=== PATIENT | female | born 1955 | race Caucasian/White ===

== ENCOUNTER 2019-03-22 01:46 | Emergency (ER) | payer MEDICARE, OTHER ==
[~2019-03-22] VITALS: Ht 152.4 cm; Wt 70.3 kg
--- OUTSIDE RECORDS SUMMARY | 2019-03-22 01:48 | XMS REPORT | Clinical Summary ---
Author Author [facility] Address Unknown Phone Unavailable Care Team Providers Care Solar Panel Technician Name Role Phone PCP Unavailable Allergies Not on File Medications Not on file Active Problems Not on file Encounters Care Team Description Date Type Specialty Thor Gibson MD 05/25/2018 Lab Lab after 03/21/2018 Social History Date Tobacco Use Types Packs/Day Years Used Never Assessed Sex Assigned at Date Recorded Not on file Industry Job Start Date Occupation Not on file Not on file Not on file Travel End Travel History Travel Start No recent travel history available. Last Filed Vital Signs Not on file Plan of Treatment Health Maintenance Due Date Last Done Comments BREAST CANCER SCREENING 2007 COLONOSCOPY SCREENING 2007 SHINGLES VACCINES (#1) 2007 INFLUENZA VACCINE 05/12/2019 11/10/2005 Procedures Comments Procedure Name Priority Date/Time Associated Diagnosis SURGICAL PATHOLOGY Routine 05/25/2018 REQUEST 3:25 PM CDT after 03/21/2018 Results * Surgical pathology request (05/25/2018 3:25 PM CDT) [facility] DEPARTMENT OF PATHOLOGY AND GENOMIC MEDICINE Surgical See link below for PDF Lab [facility] DEPARTMENT pathology Report OF PATHOLOGY report AND GENOMIC MEDICINE Result status This is Final Report to [facility] DEPARTMENT [id number] OF PATHOLOGY AND GENOMIC MEDICINE Specimen Performing Organization Address City/State/Zipcode Phone Number [facility] DEPARTMENT OF [address] [place] [address] PATHOLOGY AND GENOMIC MEDICINE after 03/21/2018 Insurance Type Payer Benefit Subscriber ID Effective Phone Address Plan / Dates Group Medicare MEDICARE MEDICARE xxxxxxxxxx 2006-P [place], PART A AND resent [place] PPO BCBS BCBS xxxxxxxxxxxx 2017- CHOICE Present PPO/[employer] PPO Advance Directives Patient has advance care planning documents on file. For more information, genna kim contact: Patricio Dutta [address] [place] [address]
--- OUTSIDE RECORDS SUMMARY | 2019-03-22 01:52 | XMS REPORT | Summary of Care ---
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) - Unspecified asthma, uncomplicated (Final) - Crohn's disease, unspecified, without complications (Final) - Essential (primary) hypertension (Final) - Pure hypercholesterolemia, unspecified (Final) - Unspecified osteoarthritis, unspecified site (Final) - Major depressive disorder, single episode, unspecified (Final) - lobsterman (current) use of insulin (Final) - Family history of diabetes mellitus (Final) - Personal history of transient ischemic attack (TIA), and cerebral infarction wit hout residual deficits (Final) - Discharge Disposition: Home or Self Care Attending Physician: Belle Villatoro DPM Referring Physician: Belle Villatoro DPM Vital Signs No data available for this section Problem List Condition Effective Dates Status Health Status Informant Abrasion and/or 04/26/14 Active friction burn of foot without infection1, 2 Allergic rhinitis3, 04/26/14 Active 4 Appendectomy(Confirm Active ed) Asthma5, 6 04/26/14 Active Asthma(Confirmed) Active Bloody 05/05/11 Active stool(Confirmed) Colitis(Confirmed) 05/18/11 Active Depressed(Confirmed) Active Diabetes(Confirmed) Resolved Diabetes(Confirmed) Active Diabetic Active nephropathy(Confirme d) Diarrhea(Confirmed) Active H/O: TIA(Confirmed) Active Hypercholesteremia(C Active onfirmed) Hypothyroidism(Confi Active rmed) Hysterectomy(Confirm Active ed) Mitral valve Active prolapse(Confirmed) Nausea(Confirmed) Active Pinched Resolved nerve(Confirmed)7 Sepsis(Confirmed) Active Shortness of < 711 Resolved breath(Confirmed) Tachycardia(Confirme Active d) TIA(Confirmed) Resolved Type 1 diabetes 04/26/14 Active mellitus8, 9 Ulcerative Active colitis(Confirmed) 1Data migrated from [employer] on 03/13/15. 2Data migrated from [employer] on 03/13/15. 3Data migrated from [employer] on 03/13/15. 4Data migrated from [employer] on 03/13/15. 5Data migrated from [employer] on 03/13/15. 6Data migrated from [employer] on 03/13/15. 7l4/l5 8Data migrated from [employer] on 03/13/15. 9Data migrated from [employer] on 03/13/15. Allergies, Adverse Reactions, Alerts Substance Reaction Severity Status amoxicillin1 Active sulfamethoxazole-trimetho Active prim2 Remicade Active Bactrim Active inFLIXimab3 Active 1Data migrated from [employer] on 02/08/15. Originally documented as AMOXICILLIN. 2Data migrated from [employer] on 02/08/15. Originally documented as BACTRIM. 3Data migrated from [employer] on 02/08/15. Originally documented as REMICAID. Medications No data available for this section Results No data available for this section Immunizations Not Given Vaccine Date Status Refusal Reason influenza virus vaccine, inactivated1 07/30/14 Not Given Patient Refuses 1Result Note: patient received some live virus vaccine- humara. Dr. Galvan notify about that. order received on to D/C. LET primary care Dr. Miller Take care. Procedures Procedure Date Related Diagnosis Body Site Status Cataract surgery 2009 Completed Cataract surgery 2008 Completed Hernia repair 2007 Completed Tympanoplasty 2006 Completed Appendectomy 2000 Completed ELIEZER - Manipulation of joint under anesthetic 1996 Completed Mastoidectomy 1992 Completed Carpal tunnel release 1982 Completed Carpal tunnel release 1981 Completed section 1979 Completed section 1978 Completed Tonsillectomy and adenoidectomy 1963 Completed Abdominal hysterectomy and left Completed salpingo-oophorectomy Appendectomy Completed Cholecystotomy and removal of foreign body Completed from gallbladder Hysterectomy Completed Mastoidectomy Completed Oophorectomy Completed Social History Social History Type Response Substance Abuse Use: None. Alcohol Never Smoking Status Never smoker; Previous treatment: None; Exposure to Tobacco Smoke None; Cigarette Smoking Last 365 Days Yes; Reg Smoking Cessation Counseling No1 entered on: 05/06/18 1no change Assessment and Plan No data available for this section
--- OUTSIDE RECORDS SUMMARY | 2019-03-22 01:52 | XMS REPORT | Summary of Care ---
Author Author [facility] [place] Organization [facility] [place] Address Unknown Phone Unavailable Encounter ROSE MARY Duque(FIN) [id number] Date(s): 10/02/17 - 10/02/17 [facility] [place] [address] [place] [phone] Discharge Disposition: Home or Self Care Attending Physician: Reema Woods MD Vital Signs No data available for this section Problem List Condition Effective Dates Status Health Status Informant Abrasion and/or 04/26/14 Active friction burn of foot without infection1, 2 Allergic rhinitis3, 04/26/14 Active 4 Appendectomy(Confirm Active ed) Asthma5, 6 04/26/14 Active Asthma(Confirmed) Active Bloody 05/05/11 Active stool(Confirmed) Colitis(Confirmed) 05/18/11 Active Depressed(Confirmed) Active Depression(Confirmed Active ) Diabetes(Confirmed) Resolved Diabetes(Confirmed) Active Diabetic Active nephropathy(Confirme d) Diarrhea(Confirmed) Active H/O: TIA(Confirmed) Active Hypercholesteremia(C Active onfirmed) Hypothyroidism(Confi Active rmed) Hysterectomy(Confirm Active ed) Mitral valve Active prolapse(Confirmed) Nausea(Confirmed) Active Pinched Resolved nerve(Confirmed)7 Sepsis(Confirmed) Active Shortness of < 04/15/11 Resolved breath(Confirmed) Tachycardia(Confirme Active d) TIA(Confirmed) Resolved [...] Date Status Refusal Reason influenza virus vaccine, inactivated 07/30/14 Not Given Patient Refuses Procedures Procedure Date Related Diagnosis Body Site Cataract surgery 2009 Cataract surgery 2008 Hernia repair 2006 Tympanoplasty 2005 Appendectomy 1999 ELIEZER - Manipulation of joint under anesthetic 1996 Mastoidectomy 1992 Carpal tunnel release 1982 Carpal tunnel release 1982 section 1980 section 1978 Tonsillectomy and adenoidectomy 1963 Abdominal hysterectomy and left salpingo-oophorectomy Appendectomy Cholecystotomy and removal of foreign body from gallbladder Mastoidectomy Oophorectomy Social History Social History Type Response Substance Abuse Use: None. Alcohol Never Smoking Status Never smoker; Exposure to Tobacco Smoke None; Cigarette Smoking Last 365 Days Yes; Reg Smoking Cessation Counseling No1 1no change Assessment and Plan No data available for this section
--- OUTSIDE RECORDS SUMMARY | 2019-03-22 01:52 | XMS REPORT | Summary of Care ---
Author Author [facility] [place] Organization [facility] [place] Address Unknown Phone Unavailable Encounter ROSE MARY Duque([place]) [id number] Date(s): 10/01/17 - 10/01/17 [facility] [place] [address] [place] [phone] Discharge Disposition: Home or Self Care Attending Physician: Cristiano Ahn MD Vital Signs No data available for [...]
--- OUTSIDE RECORDS SUMMARY | 2019-03-22 01:52 | XMS REPORT | Summary of Care ---
Author Author [facility] Organization [facility] Address Unknown Phone Unavailable Care Team Providers Care Knife Setter Grinder Machine Name Role Phone Vincent Graff PCP Encounter [facility]) [phone] Date(s): 08/26/18 - 08/26/18 [facility] [address] [place] [address]- [phone] Encounter Diagnosis Dysphagia, oropharyngeal phase (Final) - 08/31/18 Other forms of dyspnea (Final) - Discharge Disposition: Home or Self Care Attending Physician: Carlos Villagran MD Referring Physician: Carlos Villagran MD Vital Signs Most recent to 1 oldest [Reference Range]: Height 152.4 cm (08/26/18 9:27 AM) Weight 68.636 kg (08/26/18 9:27 AM) Body Mass Index 29.55 m2 (08/26/18 9:27 AM) Problem List Condition Effective Dates Status Health [...] Completed Cataract surgery 2008 Completed Hernia repair 2006 Completed Tympanoplasty 2005 Completed Appendectomy 1999 Completed ELIEZER - Manipulation of joint under anesthetic 1996 Completed Mastoidectomy 1992 Completed Carpal tunnel release 1982 Completed Carpal tunnel release 1981 Completed section 1979 Completed section 1977 Completed Tonsillectomy and adenoidectomy 1963 Completed Abdominal [...]
--- OUTSIDE RECORDS SUMMARY | 2019-03-22 01:52 | XMS REPORT | Continuity of Care Document ---
Author Author [facility] Interface Address Unknown Phone Unavailable Problems Problem Status Onset Date Classification Date Reported Comments Source FOLLOW UP Active 01/17/2019 [facility] CPAP 12277 Active 12/09/2018 [facility] HST - G0399 Active 10/14/2018 [facility] Dysphagia, oropharyngeal phase 09/01/2018 03/16/2019 [facility] R13.12 Active 08/19/2018 [facility] Unspecified asthma, uncomplicated 08/13/2018 02/23/2019 [facility] Corns and callosities 08/04/2018 02/15/2019 [facility] DX: J45.909=UNSPECIFIED ASTHMA, UNCOMPLI Active 08/02/2018 [facility] DX: R06.09=OTHER FORMS OF DYSPNEA Active 07/27/2018 [facility] R07.89 Active 04/26/2018 [facility] WOUNDS Active 04/21/2018 [facility] FOLLOW-UP Active 03/31/2018 [facility] LEFT FOOT CALLUS Active 02/16/2018 [facility] LUMBAR Active 11/05/2016 [facility] [place] E89.0 Active 07/17/2016 [facility] Z12.31 - ENCNTR SCREEN MAMMOGRAM FOR MA Active 07/04/2016 [facility] Velascoadena LAB Active 04/19/2016 [facility] M17.9 Active 11/30/2015 [facility] UNK Active 10/15/2015 [facility] BDDC/ BARRETTS 530.85/. VC556.9 Active 02/21/2015 [facility] BUBBLE STUDY DX:434.11=ACUTE CARDIOEMBO Active 08/11/2014 [facility] 434.91 - CRBL ART OCL NO Active 08/08/2014 [facility] Velascoadena STROKE SYMPTOMS Active 07/28/2014 [facility] VISION CHANGES, ATAXIA Active 07/28/2014 [facility] DIZZINESS, WEAKNESS Active 07/17/2014 [facility] 250.93 Active 06/06/2014 [facility] Abrasion and/or friction burn of foot without infection<sup>1, 2</sup> Active 04/26/2014 Problem 03/16/2019 Data migrated from [employer] on 03/13/15. [facility] Allergic rhinitis<sup>3, 4</sup> Active 04/26/2014 Problem 03/16/2019 Data migrated from [employer] on 03/13/15. [facility] Asthma<sup>5, 6</sup> Active 04/26/2014 Problem 03/16/2019 Data migrated from [employer] on 03/13/15. [facility] Type 1 diabetes mellitus<sup>8, 9</sup> Active 04/26/2014 Problem 03/16/2019 Data migrated from [employer] on 03/13/15. [facility] [place] Abrasion and/or friction burn of foot without infection<sup>1, 2</sup> Active 04/26/2014 Problem 03/07/2018 Data migrated from [employer] on 03/13/15. [facility] [place] Allergic rhinitis<sup>3, 4</sup> Active 04/26/2014 Problem 03/07/2018 Data migrated from [employer] on 03/13/15. [facility] [place] Asthma<sup>5, 6</sup> Active 04/26/2014 Problem 03/07/2018 Data migrated from [employer] on 03/13/15. [facility] [place] Type 1 diabetes mellitus<sup>8, 9</sup> Active 04/26/2014 Problem 03/07/2018 Data migrated from [employer] on 03/13/15. [facility] [place] Abrasion and/or friction burn of foot without infection<sup>1, 2</sup> Active 04/26/2014 Problem 02/18/2019 Data migrated from [employer] on 03/13/15. [facility] All[facility] rhinitis<sup>3, 4</sup> Active 04/26/2014 Problem 02/18/2019 Data migrated from [employer] on 03/13/15. [facility] Asthma<sup>5, 6</sup> Active 04/26/2014 Problem 02/18/2019 Data migrated from [employer] on 03/13/15. [facility] Type 1 diabetes mellitus<sup>8, 9</sup> Active 04/26/2014 Problem 02/18/2019 Data migrated from [employer] on 03/13/15. [facility] Abrasion and/or friction burn of foot without infection<sup>1, 2</sup> Active 04/26/2014 Problem 03/23/2018 Data migrated from [employer] on 03/13/15. [facility] Allergic rhinitis<sup>3, 4</sup> Active 04/26/2014 Problem 03/23/2018 Data migrated from [employer] on 03/13/15. [facility] Asthma<sup>5, 6</sup> Active 04/26/2014 Problem 03/23/2018 Data migrated from [employer] on 03/13/15. [facility] Type 1 diabetes mellitus<sup>8, 9</sup> Active 04/26/2014 Problem 03/23/2018 Data migrated from [employer] on 03/13/15. [facility] ASTHMA Active 04/26/2014 Condition 04/28/2014 [facility] ALLERGIC RHINITIS Active 04/26/2014 Condition 04/28/2014 [facility] DIABETES - TYPE I Active 04/26/2014 Condition 04/28/2014 [facility] ABRASION, FOOT/TOE W/O INFECTION Active 04/26/2014 Condition 04/28/2014 [facility] 724.4 - LUMBOSACRAL CHARLA Active 04/19/2014 [facility] [place] F/U VISIT Active 03/16/2012 [facility] RIGHT FOR ARM FRACTURE, RIGHT WRIST STRAIN Active 02/26/2012 [facility] DDC-F/U Active 02/03/2012 [facility] DDC- FOLLOW UP Active 01/06/2012 [facility] RIGHT FOREARM FX Active 11/25/2011 [facility] ARM INJURY Active 11/25/2011 [facility] FU Active 09/30/2011 [facility] FU. Active 09/30/2011 [facility] 840.4 - SPRAIN ROTATOR Active 09/11/2011 [facility] [place] 6 WEEK FOLLOW UP Active 07/15/2011 [facility] INPATIENT FOLLOW UP Active 06/30/2011 [facility] Colitis Active 05/18/2011 Problem 06/13/2012 [facility], [facility] [place] Colitis Active 05/18/2011 Problem 07/01/2012 [facility] Colitis Active 05/18/2011 Problem 03/05/2012 [facility], [place] Colitis Active 05/18/2011 Problem 03/16/2019 [facility] [place], [place] Colitis Active 05/18/2011 Problem 02/18/2019 [facility] [place], [facility] [place],[facility] Colitis Active 05/18/2011 Problem 03/23/2018 [facility] [place], [facility] [place] BRAIN TUMOR Active 05/12/2011 [facility] Bloody stool Active 05/05/2011 Problem 04/01/2012 [facility], [facility] [place] Bloody stool Active 05/05/2011 Problem 03/18/2012 [facility] Bloody stool Active 05/05/2011 Problem 03/05/2012 [facility], [place] Bloody stool Active 05/05/2011 Problem 07/01/2012 [facility] [place],[facility] Bloody stool Active 05/05/2011 Problem 03/16/2019 [facility] [place], [place] Bloody stool Active 05/05/2011 Problem 02/18/2019 [facility] [place], [facility] [place],[facility] Bloody stool Active 05/05/2011 Problem 03/23/2018 [facility] [place], [facility] [place] DOUBLE VISION, DIZZINESS, NAUSEA Active 04/29/2011 [facility] [place] Shortness of breath Resolved 04/15/2011 Problem 03/16/2019 [facility] [place], [place] Shortness of breath Resolved 04/15/2011 Problem 02/18/2019 [facility] [place], [facility] [place],[facility] Shortness of breath Resolved 04/15/2011 Problem 03/23/2018 [facility] [place], [facility] [place] DIARRHEA, SEPTIC SHOCK Active 04/15/2011 [facility] TBI Active 10/12/2000 [facility] Depressed Active Problem 04/01/2012 [facility] [place] Diabetic nephropathy Active Problem 06/13/2012 [facility], [facility] [place] Diarrhea Active Problem 06/13/2012 [facility] [place] Nausea Active Problem 06/13/2012 [facility] [place] Sepsis Active Problem 06/13/2012 [facility] [place] Shortness of breath Resolved Problem 06/13/2012 [facility] [place] Depressed Active Problem 03/18/2012 [facility] Diabetic nephropathy Active Problem 07/01/2012 [facility] Diarrhea Active Problem 07/01/2012 [facility] Nausea Active Problem 07/01/2012 [facility] Sepsis Active Problem 07/01/2012 [facility] Shortness of breath Resolved Problem 07/01/2012 [facility] Appendectomy Active Problem 07/01/2012 [facility] [place],[facility] Hysterectomy Active Problem 07/01/2012 [facility] [place],[facility] Depressed Active Problem 03/05/2012 [facility], [place] Diabetic nephropathy Active Problem 03/05/2012 [facility] [place] Diarrhea Active Problem 03/05/2012 [facility] [place] Nausea Active Problem 03/05/2012 [facility] [place] Sepsis Active Problem 03/05/2012 [facility] [place] Shortness of breath Resolved Problem 03/05/2012 [facility], [place] Depressed Active Problem 07/01/2012 [facility] [place],[facility] Appendectomy Active Problem 03/16/2019 [facility] [place], [place] Depressed Active Problem 03/16/2019 [facility] [place], [place] Diabetes Resolved Problem 03/16/2019 [place],[facility], [facility] [place], [facility] [place] Diabetic nephropathy Active Problem 03/16/2019 [facility] [place], [place] Diarrhea Active Problem 03/16/2019 [facility] [place], [place] Hysterectomy Active Problem 03/16/2019 [facility] [place], [place] Nausea Active Problem 03/16/2019 [facility] [place], [place] Sepsis Active Problem 03/16/2019 [facility] [place], [place] TIA Resolved Problem 03/16/2019 [place],[facility], [facility] [place], [facility] [place] Appendectomy Active Problem 02/18/2019 [facility] [place], [facility] [place],[facility] Depressed Active Problem 02/18/2019 [facility] [place], [facility] [place],[facility] Diabetic nephropathy Active Problem 02/18/2019 [facility] [place], [facility] [place],[facility] Diarrhea Active Problem 02/18/2019 [facility] [place], [facility] [place],[facility] Hysterectomy Active Problem 02/18/2019 [facility] [place], [facility] [place],[facility] Nausea Active Problem 02/18/2019 [facility] [place],[facility] [place],[facility] Pinched nerve<sup>1</sup> Resolved Problem 03/01/2015 1l4/l5 [place],[facility] Sepsis Active Problem 02/18/2019 [facility] [place], [facility] [place],[facility] Asthma Active Problem 03/16/2019 [facility] [place], [place] H/O: TIA Active Problem 03/16/2019 [facility] [place], [place] Hypercholesteremia Active Problem 03/16/2019 [facility] [place], [place] Hypothyroidism Active Problem 03/16/2019 [facility] [place],[facility] Mitral valve prolapse Active Problem 03/16/2019 [facility] [place],[facility] Pinched nerve<sup>7</sup> Resolved Problem 03/16/2019 l4/l5 [facility] [place], [place] Tachycardia Active Problem 03/16/2019 [facility] [place], [place] Ulcerative colitis Active Problem 03/16/2019 [facility] [place], [place] Asthma Active Problem 03/07/2018 [facility] [place], [facility] [place] Depression Active Problem 10/05/2017 [facility] [place], [place], [facility] [place] H/O: TIA Active Problem 03/07/2018 [facility] [place], [facility] [place] Hypercholesteremia Active Problem 03/07/2018 [facility] [place], [facility] [place] Hypothyroidism Active Problem 03/07/2018 [facility] [place], [facility] [place] Mitral valve prolapse Active Problem 03/07/2018 [facility] [place], [facility] [place] Pinched nerve<sup>7</sup> Resolved Problem 03/07/2018 l4/l5 [facility] [place], [facility] [place] Tachycardia Active Problem 03/07/2018 [facility] [place], [facility] [place] Ulcerative colitis Active Problem 03/07/2018 [facility] [place], [facility] [place] Final: Muscle weakness 02/07/2017 [facility] [place] Final: Stiffness of unspecified joint, not elsewhere classified 02/07/2017 [facility] [place] Final: Difficulty in walking, not elsewhere classified 02/07/2017 [facility] [place] Diabetes mellitus due to underlying condition with diabetic nephropathy 11/23/2018 [facility] Other specified soft tissue disorders 11/23/2018 [facility] Crohn's disease, unspecified, without complications 02/15/2019 [facility] custodial use of insulin 02/15/2019 [facility] Thyrotoxicosis with diffuse goiter without thyrotoxic crisis or storm 02/15/2019 [facility] Essential hypertension 02/15/2019 [facility] Personal history of transient ischemic attack , and cerebral infarction without residual deficits 02/15/2019 [facility] Asthma Active Problem 02/18/2019 [facility] H/O: TIA Active Problem 02/18/2019 [facility] Hypercholesteremia Active Problem 02/18/2019 [facility] [place],[facility] Hypothyroidism Active Problem 02/18/2019 [facility] [place],[facility] Mitral valve prolapse Active Problem 02/18/2019 [facility] [place],[facility] Pinched nerve<sup>7</sup> Resolved Problem 02/18/2019 l4/l5 [facility] [place],[facility] Tachycardia Active Problem 02/18/2019 [facility] [place],[facility] Ulcerative colitis Active Problem 02/18/2019 [facility] [place],[facility] Appendectomy Active Problem 03/23/2018 [facility] [place], [facility] [place] Asthma Active Problem 03/23/2018 [facility] [place] Depressed Active Problem 03/23/2018 [facility] [place],[facility] [place] Diabetic nephropathy Active Problem 03/23/2018 [facility] [place],[facility] [place] Diarrhea Active Problem 03/23/2018 [facility] [place],[facility] [place] H/O: TIA Active Problem 03/23/2018 [facility] [place] Hypercholesteremia Active Problem 03/23/2018 [facility] [place] Hypothyroidism Active Problem 03/23/2018 [facility] [place] Hysterectomy Active Problem 03/23/2018 [facility] [place],[facility] [place] Mitral valve prolapse Active Problem 03/23/2018 [facility] [place] Nausea Active Problem 03/23/2018 [facility] [place],[facility] [place] Pinched nerve<sup>7</sup> Resolved Problem 03/23/2018 l4/l5 [facility] [place] Sepsis Active Problem 03/23/2018 [facility] [place],[facility] [place] Tachycardia Active Problem 03/23/2018 [facility] [place] Ulcerative colitis Active Problem 03/23/2018 [facility] [place] Type 1 diabetes mellitus with unspecified complications 11/23/2018 [facility] Type 1 diabetes mellitus with hyperglycemia 11/23/2018 [facility] Hypertensive heart disease without heart failure 11/23/2018 [facility] Pure hypercholesterolemia, unspecified 02/15/2019 [facility] Family history of ischemic heart disease and other diseases of the circulatory system 11/23/2018 [facility] Other forms of dyspnea 03/16/2019 [place] Pain in left foot 02/15/2019 [facility] Pain in right foot 02/15/2019 [facility] Type 1 diabetes mellitus with diabetic neuropathy, unspecified 02/15/2019 [facility] Unspecified osteoarthritis, unspecified site 02/15/2019 [facility] Major depressive disorder, single episode, unspecified 02/15/2019 [facility] Family history of diabetes mellitus 02/15/2019 [facility] Other chest pain 02/23/2019 [facility], [place] Cough 02/23/2019 [facility] Diaphragmatic hernia without obstruction or gangrene 02/23/2019 [facility] [place] RT ELBOW/SHOULDER Active [facility] [place] FX FOREARM NOS-CLOSED Active [facility] RT HAND Active [facility] [place] SEPTIC SHOCK Active [facility] ROUTINE MEDICAL EXAM Active [facility] 342.01, 250.60, 357.2, 294.0 Active [facility] FOLLOW-UP EXAM NOS Active [facility] BRAIN INJURY NEC Active [facility] ATAXIA Active [facility] RIGHT KNEE, PRE-OP Active [facility] [place] RT KNEE, SX 10/31/15 Active [facility] [place] RT KNEE OA TKR 10/29/15 Active [facility] [place] OSTEOARTHRITIS OF KNEE, UNSPECIFIED Active [facility] RT ANKLE SX 10/31/15 Active [facility] [place] OTHER INTERVERTEBRAL DISC DEGENERATION, Active [facility] [place] MUSCLE WEAKNESS (GENERALIZED) Active [facility] [place] LOW BACK PAIN Active [facility] [place] STIFFNESS OF UNSPECIFIED JOINT, NOT ELSE Active [facility] [place] DIFFICULTY IN WALKING, NOT ELSEWHERE CLA Active [facility] [place] OTHER CHEST PAIN Active [facility] UNSPECIFIED ASTHMA, UNCOMPLICATED Active [facility] Medications Medication Details Route Status Patient Instructions Ordering Provider Order Date Source DOBUTamine 50 mg + Dextrose 5% in Water IV 46 mL 46 mL, Rate: infuse as directed, Route: IV, Dosing Weight 68.636 kg, Total Volume: 50, Start date: 05/06/18 9:25:00 CDT, Duration: 1 day, Stop date: 05/07/18 9:24:00 CDT, 1.73, [id number]: (Same as: Dobutrex) Not for direct administration- DILUTE. No Longer Active 05/06/2018 [facility] valACYclovir 500 mg oral tablet 500 mg=1 tab, PO, Daily Active 05/06/2018 [facility] Mupirocin 0.02 MG/MG Topical Ointment [Bactroban] 1 appl, TOP, TID, PRN as needed, Apply to affected area(s), X 14 day, # 22 gm, 1 Refill(s), Pharmacy: [facility] [id number] Active 03/20/2018 [facility] Humira 40 mg, SUB-Q, ONCE, 0 Refill(s) Active 03/20/2018 [facility] Lamictal PO, BID, 0 Refill(s) Active 03/20/2018 [facility] Thyroxine Daily, 0 Refill(s) Active 03/20/2018 [facility] Lidocaine IV, ONCE, 0 Refill(s) Active 03/20/2018 [facility] Wellbutrin PO, 0 Refill(s) Active 03/20/2018 [facility] Losartan PO, Daily, 0 Refill(s) Active 03/20/2018 [facility] Lipitor PO, Daily, 0 Refill(s) Active 03/20/2018 [facility] Advair Diskus 500 mcg-50 mcg inhalation powder 1 puff, INHALATION, BID, 0 Refill(s) Active 03/20/2018 [facility] Aciphex 20 mg, PO, Daily, 0 Refill(s) Active 03/20/2018 [facility] Acetaminophen 325 MG / Hydrocodone Bitartrate 7.5 MG Oral Tablet [[place] 7.5/325] See Instructions, PRN Pain Score 7-10, 1 tab PO Q6-8H as needed, # 50 tab, 0 Refill(s), given to patient Active 12/19/2015 [facility] rivaroxaban 10 mg oral tablet 10 mg=1 tab, PO, Daily, # 10 tab, 0 Refill(s) Active 12/19/2015 [facility] Lamictal 150 mg, 1.5 tab, Route: PO, Drug form: TAB, Daily, Dosing Weight 71.449, kg, Start date: 12/18/15 9:00:00, Duration: 30 day, Stop date: 01/16/16 9:00:00Notes: (Same as:LaMICtal) No Longer Active 12/18/2015 [facility] Folic Acid 0.4 mg, 1 tab, Route: PO, Drug form: TAB, Daily, Dosing Weight 71.449, kg, Start date: 12/18/15 9:00:00, Duration: 30 day, Stop date: 01/16/16 9:00:00 No Longer Active 12/18/2015 [facility] Thiamine 100 mg, 1 tab, Route: PO, Drug form: TAB, Daily, Dosing Weight 71.449, kg, Start date: 12/18/15 9:00:00, Duration: 30 day, Stop date: 01/16/16 9:00:00Notes: (Same As: Vitamin B1) No Longer Active 12/18/2015 [facility] Bupropion 300 mg, 2 tab, Route: PO, Drug form: ERTAB, Daily, Dosing Weight 71.449, kg, Start date: 12/18/15 9:00:00, Duration: 30 day, Stop date: 01/16/16 9:00:00Notes: (Same as: Wellbutrin XL) "Do Not Crush" No Longer Active 12/18/2015 [facility] Lidocaine Hydrochloride 0.05 MG/MG Transdermal Patch 1 patch, Route: TOP, Daily, Drug form: FILM, Start date: 12/18/15 9:00:00, Duration: 30 day, Stop date: 01/16/16 9:00:00Notes: Apply only once for up to 12 hours in a 24-hour period (12 hours on and 12 hours off). (Same as: Lidoderm) "Remove old patch before application of new patch" No Longer Active 12/18/2015 [facility] Xarelto 10 mg, 1 tab, Route: PO, Drug form: TAB, Daily, Dosing Weight 71.449, kg, Start date: 12/18/15 8:00:00, Duration: 30 day, Stop date: 01/16/16 8:00:00Notes: (Same as: Xarelto) Do Not Crush No Longer Active 12/18/2015 [facility] Synthroid 150 microgram, 1 tab, Route: PO, Drug form: TAB, Q630AM, Dosing Weight 71.449, kg, Start date: 12/18/15 6:30:00, Duration: 30 day, Stop date: 01/16/16 6:30:00Notes: Take 1 hour before or 2 hours after meal; Enteral feeds may interefere with the absorption of this medication. (Same as: Levothroid) No Longer Active 12/18/2015 [facility] Levemir 15 unit, 0.15 mL, Route: SUB-Q, Drug form: INJ, Q12H, Dosing Weight 71.449, kg, Start date: 12/17/15 21:00:00, Duration: 30 day, Stop date: 01/16/16 9:00:00Notes: Same as Levemir Do not hold insulin wit hout contacting prescriber WASTE: F/P - Black; E - [employer] "single patient use only" No Longer Active 12/18/2015 [facility] remove patch 1 patch, Route: TOP, Bedtime, Drug form: ERFILM, Start date: 12/17/15 21:00:00, Duration: 30 day, Stop date: 01/15/16 21:00:00Notes: Remove patch 12 hours after application each day. No Longer Active 12/18/2015 [facility] Vancomycin 6.67 MG/ML Injectable Solution 1 gm, Route: IVPB, Q12H, Dosing Weight 71.449, kg, Time Critical Medication, Start date: 12/17/15 20:00:00, Duration: 1 doses or times, Stop date: 12/17/15 20:00:00, Pharmacy to adjust dose for renal functionNotes: TIME CRITICAL MEDICATION (Same As: Vancocin) Infusion rate 2001 mg: infuse over 2.5 hours MEDICATION WASTE Product Size: 1000 mg Product Wasted: ___ mg Inactive 12/18/2015 [facility] Advair Diskus 250 mcg-50 mcg inhalation powder 1 puff, Route: INHALATION, Drug Form: AERO, Dosing Weight 71.449, kg, BID, Start date: 12/17/15 17:00:00, Duration: 30 day, Stop date: 01/16/16 9:00:00 Inactive 12/17/2015 [facility] docusate sodium 100 mg oral capsule 100 mg, 1 cap, Route: PO, Drug form: CAP, BID, Dosing Weight 71.449, kg, Start date: 12/17/15 17:00:00, Duration: 30 day, Stop date: 01/16/16 9:00:00Notes: (Same as: Colace) (Do Not Crush) No Longer Active 12/17/2015 [facility] Aciphex 20 mg, Route: PO, Drug form: ECTAB, BID, Dosing Weight 71.449, kg, Start date: 12/17/15 17:00:00, Duration: 30 day, Stop date: 01/16/16 9:00:00 Inactive 12/17/2015 [facility] budesonide-formoterol 160 mcg-4.5 mcg/inh inhalation aerosol with adapter 2 inhalation, Route: INHALATION, Drug Form: AERO/A, BID, Start date: 12/17/15 17:00:00, Duration: 30 day, Stop date: 01/16/16 9:00:00Notes: (Same as: Symbicort) WASTE: Aerosol - Return to Pharmacy No Longer Active 12/17/2015 [facility] Asacol HD 800 mg, 1 tab, Route: PO, Drug form: ECTAB, TID, Dosing Weight 71.449, kg, Start date: 12/17/15 17:00:00, Duration: 30 day, Stop date: 01/16/16 13:00:00Notes: (Same as: Asacol HD) (Do not crush) No Longer Active 12/17/2015 [facility] Lipitor 40 mg, 1 tab, Route: PO, Drug form: TAB, QPM, Dosing Weight 71.449, kg, Start date: 12/17/15 17:00:00, Duration: 30 day, Stop date: 01/15/16 17:00:00Notes: (Same as: Lipitor) No Longer Active 12/17/2015 [facility] Protonix 40 mg, 1 tab, Route: PO, Drug form: ECTAB, Before Dinner, Start date: 12/17/15 16:30:00, Duration: 30 day, Stop date: 01/15/16 16:30:00Notes: Tablet should not be chewed or crushed. (Same as: Protonix) No Longer Active 12/17/2015 [facility] Reminder to bring pt's own med Asacol HD to pharmacy Reminder to bring pt's own med Asacol HD to pharmacy, 1, Drug form: MISC, Route: MISC, QSHIFT, 12/17/15 16:00:00, Duration: 30 day, Stop date: 01/16/16 8:00:00 Inactive 12/17/2015 [facility] [facility] Phazyme 250 mg, 2 tab, Route: PO, Drug form: [place], Daily, Dosing Weight 71.449, kg, PRN Gas, Start date: 12/17/15 13:43:00, Duration: 30 day, Stop date: 01/16/16 13:42:00Notes: (Same as: Mylanta Gas) No Longer Active 12/17/2015 [facility] Insulin, Aspart, Human 4 unit, 0.04 mL, Route: SUB-Q, Drug form: SOLN, Bedtime, Dosing Weight 71.449, kg, PRN Blood Glucose Results, Start date: 12/17/15 13:43:00, Duration: 30 day, Stop date: 01/16/16 13:42:00Notes: Roll in palms of hands gently; Do not shake vigorously. (Same as: NovoLOG) "single patient use only" WASTE: F/P - Black; E - Municipal Trash Bin Stable for 28 days at room temperature. Expires in days from Date No Longer Active 12/17/2015 [facility] Glucagon 1 mg, Route: IM, Drug form: PDR/INJ, PRN, Dosing Weight 71.449, kg, PRN Blood Glucose Results, Start date: 12/17/15 13:43:00, Duration: 30 day, Stop date: 01/16/16 14:42:00 No Longer Active 12/17/2015 [facility] Dextrose 50% Syringe 25 gm, 50 mL, Route: IVP, Drug Form: INJ, Dosing Weight 71.449, kg, PRN, PRN Blood Glucose Results, Start date: 12/17/15 13:43:00, Duration: 30 day, Stop date: 01/16/16 14:42:00 No Longer Active 12/17/2015 [facility] acetaminophen (ANES) Route: IV, Drug form: INJ, ONCE, Stop date: 12/17/15 9:49:00 Inactive 12/17/2015 [facility] ondansetron (ANES) Route: IV, Drug form: INJ, ONCE, Stop date: 12/17/15 9:49:00 Inactive 12/17/2015 [facility] Acetaminophen 325 MG / Hydrocodone Bitartrate 7.5 MG Oral Tablet [[place] 7.5/325] 1 tab, Route: PO, Drug Form: TAB, Dosing Weight 71.449, kg, Q4H, PRN Pain Score 4-6, Start date: 12/17/15 9:33:00, Duration: 30 day, Stop date: 01/16/16 9:32:00Notes: Same as [place] 325-7.5mg Do not exceed 4gm/day of acetaminophen. No Longer Active 12/17/2015 [facility] Ondansetron 4 mg, 2 mL, Route: IVP, Drug form: INJ, Q8H, Dosing Weight 71.449, kg, PRN Nausea & Vomiting, Start date: 12/17/15 9:33:00, Duration: 30 day, Stop date: 01/16/16 9:32:00Notes: (Same as: Zofran) MEDICATION WASTE Product Size: 4 mg Product Wasted: ___ mg No Longer Active 12/17/2015 [facility] Hydromorphone 0.5 mg, 0.5 mL, Route: IVP, Drug form: INJ, Q3H, Dosing Weight 71.449, kg, PRN Pain Score 7-10, Start date: 12/17/15 9:33:00, Duration: 30 day, Stop date: 01/16/16 9:32:00 No Longer Active 12/17/2015 [facility] Ketorolac 15 mg, 1 mL, Route: IVP, Drug form: INJ, Q6H, Dosing Weight 71.449, kg, PRN Pain Score 4-6, Start date: 12/17/15 9:33:00, Duration: 3 day, Stop date: 12/20/15 9:32:00Notes: (Same as:Toradol) IV bolus must be given >15 seconds. Give IM administration slowly and deeply into the muscle. Not for use > 4 days. No Longer Active 12/17/2015 [facility] Dulcolax Laxative 5 mg, 1 tab, Route: PO, Drug form: ECTAB, Q24H, Dosing Weight 71.449, kg, PRN Constipation, Start date: 12/17/15 9:33:00, Duration: 30 day, Stop date: 01/16/16 9:32:00Notes: (Same As: Dulcolax, Corre ctol) (Do Not Crush) "Do Not Crush" No Longer Active 12/17/2015 [facility] Al hydroxide/Mg hydroxide/simethicone 200 mg-200 mg-20 mg/5 mL oral suspension 30 ml, Route: PO, Drug Form: SUSP, Dosing Weight 71.449, kg, Q4H, PRN Indigestion, Start date: 12/17/15 9:33:00, Duration: 30 day, Stop date: 01/16/16 9:32:00Notes: (aluminum hydroxide-magnesium hyd-simethicone [phone]/5ml 30 ml ud CHANTAL) No Longer Active 12/17/2015 [facility] Diphenhydramine 25 mg, 1 tab, Route: PO, Drug form: TAB, Q6H, Dosing Weight 71.449, kg, PRN Itching, Start date: 12/17/15 9:33:00, Duration: 30 day, Stop date: 01/16/16 9:32:00 No Longer Active 12/17/2015 [facility] Lactated Ringers IV 1,000 mL 1,000 mL, Rate: 100 ml/hr, Infuse over: 10 hr, Route: IV, Dosing Weight 71.449 kg, Total Volume: 1,000, Start date: 12/17/15 9:33:00, Duration: 30 day, Stop date: 01/16/16 9:32:00 No Longer Active 12/17/2015 [facility] Acetaminophen 650 mg, 2 tab, Route: PO, Drug form: TAB, Q4H, Dosing Weight 71.449, kg, PRN Pain 1-3/Temp > 100.4 F, Start date: 12/17/15 9:33:00, Duration: 30 day, Stop date: 01/16/16 9:32:00Notes: Do not exceed 4 gm/day. (Same as: Tylenol) No Longer Active 12/17/2015 [facility] tranexamic acid (ANES) Route: IV, Drug form: INJ, ONCE, Stop date: 12/17/15 9:24:00 Inactive 12/17/2015 [facility] fentaNYL (ANES) Route: IV, Drug form: INJ, ONCE, Stop date: 12/17/15 8:39:00 Inactive 12/17/2015 [facility] propofol (ANES) Route: IV, Drug form: INJ, ONCE, Stop date: 12/17/15 8:39:00 Inactive 12/17/2015 [facility] lidocaine (ANES) Route: IV, Drug form: INJ, ONCE, Stop date: 12/17/15 8:39:00 Inactive 12/17/2015 [facility] hydromorphone (ANES) Route: IV, Drug form: INJ, ONCE, Stop date: 12/17/15 8:19:00 Inactive 12/17/2015 [facility] midazolam (ANES) Route: IV, Drug form: SOLN, ONCE, Stop date: 12/17/15 8:19:00 Inactive 12/17/2015 [facility] Lactated Ringers Injection IV (ANES) (ANES) Route: IV, Total Volume: 1,000, Start date: 12/17/15 7:42:00, Stop date: 12/17/15 8:42:00 Inactive 12/17/2015 [facility] vancomycin (ANES) (ANES) Route: IV, Drug form: INJ, Start date: 12/17/15 7:41:00, Stop date: 12/17/15 8:41:00 Inactive 12/17/2015 [facility] Calcium Chloride 0.0014 MEQ/ML / Potassium Chloride 0.004 MEQ/ML / Sodium Chloride 0.103 MEQ/ML / Sodium Lactate 0.028 MEQ/ML Injectable Solution 1,000 mL, Rate: 25 ml/hr, Infuse over: 40 hr, Route: IV, Dosing Weight 71.449 kg, Total Volume: 1,000, Start date: 12/17/15 7:39:00, Duration: 30 day, Stop date: 01/16/16 7:38:00 Inactive 12/17/2015 [facility] Vancomycin 1 gm, Route: IVPB, ONCE, Dosing Weight 71.449, kg, Start date: 12/17/15 7:00:00, Stop date: 12/17/15 7:00:00Notes: TIME CRITICAL MEDICATION (Same As: Vancocin) Infusion rate 2001 mg: infuse over 2.5 hours MEDICATION WASTE Product Size: 1000 mg Product Wasted: ___ mg Inactive 12/17/2015 [facility] Nucynta PO, Q6H, 0 Refill(s) Active 12/12/2015 [facility] Aspirin 81 MG Enteric Coated Tablet 81 mg=1 tab, PO, Daily, # 30 tab, 0 Refill(s) Active 07/30/2014 [facility] Nitroglycerin 0.4 MG Sublingual Tablet 0.4 mg, 1 tab, Route: SL, Drug form: TAB, Q5Min, Dosing Weight 63.636, kg, PRN Chest Pain, Start date: 07/29/14 23:44:00, Duration: 30 day, Stop date: 08/28/14 22:43:00, Chest Pain,repeat Q5 minutes for total of 3 dosesNotes: (Same as:Nitroquick, Nitrostat) "Do Not Crush" Sublingual tablet No Longer Active 07/30/2014 [facility] Atropine 0.5 mg, 5 mL, Route: IVP, Drug form: INJ, PRN, Dosing Weight 63.636, kg, PRN Bradycardia, Start date: 07/29/14 23:44:00, Duration: 30 day, Stop date: 08/28/14 22:43:00, symptomatic bradycardia, HR No Longer Active 07/30/2014 [facility] Protonix 40 mg, 1 tab, Route: PO, Drug form: ECTAB, Before Dinner, Start date: 07/29/14 16:30:00, Duration: 30 day, Stop date: 08/27/14 16:30:00Notes: Tablet should not be chewed or crushed. (Same as: Protonix) No Longer Active 07/29/2014 [facility] NovoLog 3 units, SUB-Q, TID-Before Meals, base dosage, 0 Refill(s)Special Instructions: base dosage Active 07/29/2014 [facility] NovoLog 6 units, SUB-Q, TID-Before Meals, blood sugar 351 or greater, 0 Refill(s)Special Instructions: blood sugar 351 or greater Active 07/29/2014 [facility] Influenza Virus Vaccine, Inactivated X-Sfsfakch-35-2007 (H3N2)-like virus (B-Wuoillo-558-2007 [facility] [place]175C) strain / Influenza Virus Vaccine, Inactivated I-Noezciwb-06-2007, IVR-148 (H1N1) strain / Influenza Virus Vaccine, Inactivated, V-Asqvasz-8-lik 0.5 mL, Route: IM, Drug Form: SUSP, Daily, Start date: 07/29/14 9:00:00, Duration: 1 doses or times, Stop date: 07/29/14 9:00:00Notes: (Same as: Fluzone Quadrivalent) Inactive 07/29/2014 [facility] Tramadol 300 mg, 6 tab, Route: PO, Drug form: TAB, Daily, Dosing Weight 85.909, kg, Start date: 07/29/14 9:00:00, Duration: 30 day, Stop date: 08/27/14 9:00:00Notes: Not to exceed 400mg/day. (Same As: Ultram) No Longer Active 07/29/2014 [facility] Aciphex 20 mg, Route: PO, Drug form: ECTAB, BID, Dosing Weight 85.909, kg, Start date: 07/29/14 9:00:00, Duration: 30 day, Stop date: 08/27/14 17:00:00 No Longer Active 07/29/2014 [facility] Ascorbic Acid / Beta Carotene / cuprous oxide / Lutein / sodium selenate / Vitamin E / Zinc Oxide 1 tab, Route: PO, Drug Form: TAB, Dosing Weight 85.909, kg, Daily, Start date: 07/29/14 9:00:00, Duration: 30 day, Stop date: 08/27/14 9:00:00Notes: (Same as:Thera-M, Theragran-M) Give with food. No Longer Active 07/29/2014 [facility] montelukast 10 mg, 1 tab, Route: PO, Drug form: TAB, Daily, Dosing Weight 85.909, kg, Start date: 07/29/14 9:00:00, Duration: 30 day, Stop date: 08/27/14 9:00:00Notes: (Same as:Singulair) No Longer Active 07/29/2014 [facility] Lamictal 200 mg, 2 tab, Route: PO, Drug form: TAB, Daily, Dosing Weight 85.909, kg, Start date: 07/29/14 9:00:00, Duration: 30 day, Stop date: 08/27/14 9:00:00Notes: (Same as:LaMICtal) No Longer Active 07/29/2014 [facility] insulin detemir 30 unit, 0.3 mL, Route: SUB-Q, Drug form: INJ, Q12H, Dosing Weight 85.909, kg, Start date: 07/29/14 9:00:00, Duration: 30 day, Stop date: 08/27/14 21:00:00Notes: Same as Levemir Do not hold insulin with out contacting prescriber "single patient use only" No Longer Active 07/29/2014 [facility] Saline Flush 0.9% 10 ml, Route: IVP, Drug Form: INJ, Dosing Weight 63.636, kg, Q12H, Start date: 07/29/14 9:00:00, Duration: 30 day, Stop date: 08/27/14 21:00:00Notes: preservative free. No Longer Active 07/29/2014 [facility] Aspirin 81 MG Enteric Coated Tablet 81 mg, 1 tab, Route: PO, Drug form: ECTAB, Daily, Dosing Weight 63.636, kg, Start date: 07/29/14 9:00:00, Duration: 30 day, Stop date: 08/27/14 9:00:00Notes: Do not crush or chew. (Same As: Ecotrin) No Longer Active 07/29/2014 [facility] Advair Diskus 250 mcg-50 mcg inhalation powder 1 puff, Route: INHALATION, Drug Form: AERO, Dosing Weight 85.909, kg, BID, Start date: 07/29/14 9:00:00, Duration: 30 day, Stop date: 08/27/14 17:00:00Notes: (Same as: Advair) No Longer Active 07/29/2014 [facility] Cholecalciferol / Vitamin E 400 IntlUnit, 1 tab, Route: PO, Drug form: TAB, Daily, Dosing Weight 85.909, kg, Start date: 07/29/14 9:00:00, Duration: 30 day, Stop date: 08/27/14 9:00:00Notes: Same as Vitamin D3 No Longer Active 07/29/2014 [facility] Bupropion 450 mg, 3 tab, Route: PO, Drug form: ERTAB, Daily, Dosing Weight 85.909, kg, Start date: 07/29/14 9:00:00, Duration: 30 day, Stop date: 08/27/14 9:00:00Notes: (Do not crush) (Same As: Wellbutrin SR) No Longer Active 07/29/2014 [facility] Thiamine 100 mg, 1 tab, Route: PO, Drug form: TAB, Breakfast, Dosing Weight 85.909, kg, Start date: 07/29/14 8:00:00, Duration: 30 day, Stop date: 08/27/14 8:00:00Notes: (Same As: Vitamin B1) No Longer Active 07/29/2014 [facility] Ascorbic Acid / Biotin / Folic Acid / Niacin / pantothenate / pyridoxine / Riboflavin / Thiamine / Vitamin B 12 1 tab, Route: PO, Drug Form: TAB, Dosing Weight 85.909, kg, Breakfast, Start date: 07/29/14 8:00:00, Duration: 30 day, Stop date: 08/27/14 8:00:00Notes: Give with food. (Same As : Therapeutic multivitamins) No Longer Active 07/29/2014 [facility] NovoLog Route: SUB-Q, TID-Meals, Dosing Weight 85.909, kg, Start date: 07/29/14 8:00:00, Duration: 30 day, Stop date: 08/27/14 17:00:00 Inactive 07/29/2014 [facility] Folic Acid 0.4 mg, 1 tab, Route: PO, Drug form: TAB, Breakfast, Dosing Weight 85.909, kg, Start date: 07/29/14 8:00:00, Duration: 30 day, Stop date: 08/27/14 8:00:00 No Longer Active 07/29/2014 [facility] Benadryl 25 mg, 1 tab, Route: PO, Drug form: TAB, TID, Dosing Weight 63.636, kg, PRN Itching, Start date: 07/29/14 7:47:00, Duration: 30 day, Stop date: 08/28/14 7:46:00 No Longer Active 07/29/2014 [facility] Clonidine Hydrochloride 0.1 MG Oral Tablet 0.1 mg, 1 tab, Route: PO, Drug form: TAB, Q8H, Dosing Weight 63.636, kg, PRN Elevated BP, Start date: 07/29/14 7:47:00, Duration: 30 day, Stop date: 08/28/14 7:46:00, SBP >160Notes: (Same As: Catapres) No Longer Active 07/29/2014 [facility] Zofran 4 mg, 2 mL, Route: IVP, Drug form: INJ, Q8H, Dosing Weight 63.636, kg, PRN as needed for nausea/vomiting, Priority: STAT, Start date: 07/29/14 7:47:00, Duration: 30 day, Stop date: 08/28/14 7:46:00Notes: (Same as: Zofran) No Longer Active 07/29/2014 [facility] Synthroid 150 microgram, 1 tab, Route: PO, Drug form: TAB, Q630AM, Dosing Weight 85.909, kg, Start date: 07/29/14 6:30:00, Duration: 30 day, Stop date: 08/27/14 6:30:00Notes: Take 1 hour before or 2 hours after meal; Enteral feeds may interefere with the absorption of this medication. (Same as: Levothroid) No Longer Active 07/29/2014 [facility] Insulin, Aspart, Human 1 unit, 0.01 mL, Route: SUB-Q, Drug form: SOLN, TID-Before Meals, Dosing Weight 63.636, kg, PRN Blood Glucose Results, Start date: 07/28/14 23:05:00, Duration: 30 day, Stop date: 08/27/14 23:04:00Notes: Roll in palms of hands gently; Do not shake vigorously. (Same as: NovoLOG) "single patient use only" Stable for 28 days at room temperature. Expires in days from Date No Longer Active 07/29/2014 [facility] Glucagon 1 mg, Route: IM, Drug form: PDR/INJ, PRN, Dosing Weight 63.636, kg, PRN Blood Glucose Results, Start date: 07/28/14 23:05:00, Duration: 30 day, Stop date: 08/27/14 22:04:00 No Longer Active 07/29/2014 [facility] Dextrose 50% Syringe 25 gm, 50 mL, Route: IVP, Drug Form: INJ, Dosing Weight 63.636, kg, PRN, PRN Blood Glucose Results, Start date: 07/28/14 23:05:00, Duration: 30 day, Stop date: 08/27/14 22:04:00 No Longer Active 07/29/2014 [facility] Saline Flush 0.9% 10 ml, Route: IVP, Drug Form: INJ, Dosing Weight 63.636, kg, PRN, PRN Line Flush, Start date: 07/28/14 23:00:00, Duration: 30 day, Stop date: 08/27/14 21:59:00Notes: preservative free. No Longer Active 07/29/2014 [facility] gabapentin 600 MG Oral Tablet 600 mg, 2 cap, Route: PO, Drug form: CAP, TID, Dosing Weight 85.909, kg, Start date: 07/28/14 23:00:00, Duration: 30 day, Stop date: 08/27/14 16:00:00Notes: (Same as: Neurontin) No Longer Active 07/29/2014 [facility] gabapentin 400 MG Oral Capsule 400 mg, 1 cap, Route: PO, Drug form: CAP, TID, Dosing Weight 85.909, kg, Start date: 07/28/14 23:00:00, Duration: 30 day, Stop date: 08/27/14 16:00:00Notes: (Same as: Neurontin) No Longer Active 07/29/2014 [facility] albuterol 1.25 mg, 3 mL, Route: NEB, Drug form: SOLN, RQ4H, PRN Respiratory Protocol, Start date: 07/28/14 22:57:00, Duration: 30 day, Stop date: 08/27/14 22:56:00Notes: SEE RT DOCUMENTATION (Same as: Proventil) No Longer Active 07/29/2014 [facility] Lipitor 40 mg, 1 tab, Route: PO, Drug form: TAB, QPM, Dosing Weight 85.909, kg, Start date: 07/28/14 22:03:00, Duration: 30 day, Stop date: 08/27/14 17:00:00Notes: (Same as: Lipitor) No Longer Active 07/29/2014 [facility] Delzicol 800 mg, 2 cap, Route: PO, Drug form: DRC, TID, Dosing Weight 85.909, kg, Start date: 07/28/14 22:01:00, Stop date: 08/27/14 17:00:00Notes: (Same as: Delzicol) No Longer Active 07/29/2014 [facility] acetaminophen-codeine #3 2 tab, Route: PO, Drug Form: TAB, Dosing Weight 85.909, kg, Q4H, PRN as needed for pain, Start date: 07/28/14 21:19:00, Stop date: 08/27/14 21:18:00Notes: Do not exceed 4gm/day of acetaminophen. (Same as: Tylenol with Codeine # 3) No Longer Active 07/29/2014 [facility] Xopenex HFA 2 puff, Route: INHALATION, Drug Form: AERO/A, Dosing Weight 85.909, kg, Q4H, PRN as needed for wheezing, Start date: 07/28/14 21:18:00, Stop date: 08/27/14 21:17:00 Inactive 07/29/2014 [facility] Vitamin D3 400 intl units oral capsule 400 IntlUnit=1 cap, PO, Daily, 0 Refill(s) Active 07/29/2014 [facility] Calcium 600+D Plus Minerals 1 tab, CHEW, Daily, 0 Refill(s) Active 07/29/2014 [facility] folic acid 0.4 mg oral tablet 0.4 mg=1 tab, PO, Daily, # 100 tab, 0 Refill(s) Active 07/29/2014 [facility] 24 HR mirabegron 50 MG Extended Release Tablet [Myrbetriq] 50 mg=1 tab, PO, Daily, 0 Refill(s) Active 07/29/2014 [facility] lamotrigine 200 MG Oral Tablet [Lamictal] 200 mg=1 tab, PO, Daily, # 180 tab, 0 Refill(s) Active 07/29/2014 [facility] mesalamine 800 MG Enteric Coated Tablet [Asacol] 800 mg=1 tab, PO, TID, # 252 tab, 0 Refill(s) Active 07/29/2014 [facility] acetaminophen-codeine #3 2 tab, PO, Q4H, Pain, 0 Refill(s) Active 07/29/2014 [facility] D5W 1/2NS 1,000 mL 1,000 mL, Rate: 75 ml/hr, Infuse over: 13.3 hr, Route: IV, Dosing Weight 85.909 kg, Total Volume: 1,000, Priority: STAT, Start date: 07/28/14 20:06:00, Duration: 30 day, Stop date: 08/27/14 20:05:00 No Longer Active 07/29/2014 [facility] Sodium Chloride 0.154 MEQ/ML Injectable Solution 1,000 mL, Rate: 100 ml/hr, Infuse over: 10.1 hr, Route: IV, Dosing Weight 85.909 kg, Total Volume: 1,011.2, Start date: 07/28/14 18:17:00, Duration: 3 day, Stop date: 07/31/14 18:16:00 No Longer Active 07/28/2014 [facility] Dextrose 50% Syringe 12.5 gm, Route: IVP, Dosing Weight 85.909, kg, ONCE, STAT, Start date: 07/28/14 17:55:00, Stop date: 07/28/14 17:55:00 Inactive 07/28/2014 [facility] Lipitor 40 mg, 1 tab, Route: PO, Drug form: TAB, QPM, Dosing Weight 62.727, kg, Start date: 07/18/14 17:00:00, Duration: 30 day, Stop date: 08/16/14 17:00:00Notes: (Same as: Lipitor) Inactive 07/18/2014 [facility] Influenza Virus Vaccine, Inactivated L-Donqmvej-80-2007 (H3N2)-like virus (H-Zntbfbt-255 [facility] [place]-175C) strain / Influenza Virus Vaccine, Inactivated B-Kmnpmitv-19-2007, IVR-148 (H1N1) strain / Influenza Virus Vaccine, Inactivated, T-Mdjpqjq-7-lik 0.5 ml, Route: IM, Drug Form: SUSP, Daily, Start date: 07/18/14 9:00:00, Duration: 1 doses or times, Stop date: 07/18/14 9:00:00Notes: (Same as: Fluzone Quadrivalent) Inactive 07/18/2014 [facility] Thiamine 100 mg, 1 tab, Route: PO, Drug form: TAB, Daily, Dosing Weight 62.727, kg, Start date: 07/18/14 9:00:00, Duration: 30 day, Stop date: 08/16/14 9:00:00Notes: (Same As: Vitamin B1) Inactive 07/18/2014 [facility] Ascorbic Acid / Biotin / Folic Acid / Niacin / pantothenate / pyridoxine / Riboflavin / Thiamine / Vitamin B 12 1 tab, Route: PO, Drug Form: TAB, Dosing Weight 62.727, kg, Daily, Start date: 07/18/14 9:00:00, Duration: 30 day, Stop date: 08/16/14 9:00:00Notes: (Same as:One Tab Daily, Tab-A-Kobe + Beta Carotene) Give with food. Inactive 07/18/2014 [facility] Aciphex 20 mg, Route: PO, Drug form: ECTAB, BID, Dosing Weight 62.727, kg, Start date: 07/18/14 9:00:00, Duration: 30 day, Stop date: 08/16/14 17:00:00 No Longer Active 07/18/2014 [facility] Levemir 30 unit, 0.3 mL, Route: SUB-Q, Drug form: INJ, QAM, Dosing Weight 62.727, kg, Start date: 07/18/14 9:00:00, Duration: 30 day, Stop date: 08/16/14 9:00:00Notes: Same as Levemir "single patient use only" Inactive 07/18/2014 [facility] Aspirin 81 MG Enteric Coated Tablet 81 mg, Route: PO, Drug form: ECTAB, Daily, Dosing Weight 62.727, kg, Start date: 07/18/14 9:00:00, Duration: 30 day, Stop date: 08/16/14 9:00:00 No Longer Active 07/18/2014 [facility] Lamotrigine XR 300mg PO daily-Use pt's own med Lamotrigine XR 300mg PO daily-Use pt's own med, 300 mg, Drug form: MISC, Route: PO, Daily, 07/18/14 9:00:00, Duration: 30 day, Stop date: 08/16/14 9:00:00 Inactive 07/18/2014 [facility] montelukast 10 mg, 1 tab, Route: PO, Drug form: TAB, Daily, Dosing Weight 62.727, kg, Start date: 07/18/14 9:00:00, Duration: 30 day, Stop date: 08/16/14 9:00:00Notes: (Same as:Singulair) Inactive 07/18/2014 [facility] LaMICtal XR 300 mg, Route: PO, Drug form: ERTAB, Daily, Dosing Weight 62.727, kg, Start date: 07/18/14 9:00:00, Duration: 30 day, Stop date: 08/16/14 9:00:00 No Longer Active 07/18/2014 [facility] gabapentin 400 MG Oral Capsule 400 mg, 1 cap, Route: PO, Drug form: CAP, TID, Dosing Weight 62.727, kg, Start date: 07/18/14 9:00:00, Duration: 30 day, Stop date: 08/16/14 17:00:00Notes: (Same as: Neurontin) Inactive 07/18/2014 [facility] gabapentin 600 MG Oral Tablet 600 mg, 2 cap, Route: PO, Drug form: CAP, TID, Dosing Weight 62.727, kg, Start date: 07/18/14 9:00:00, Duration: 30 day, Stop date: 08/16/14 17:00:00Notes: (Same as: Neurontin) Inactive 07/18/2014 [facility] Advair Diskus 250 mcg-50 mcg inhalation powder 1 puff, Route: INHALATION, Drug Form: AERO, Dosing Weight 62.727, kg, BID, Start date: 07/18/14 9:00:00, Duration: 30 day, Stop date: 08/16/14 17:00:00Notes: (Same as: Advair) Inactive 07/18/2014 [facility] Bupropion 450 mg, 3 tab, Route: PO, Drug form: ERTAB, Daily, Dosing Weight 62.727, kg, Start date: 07/18/14 9:00:00, Duration: 30 day, Stop date: 08/16/14 9:00:00Notes: (Same as: Wellbutrin XL) "Do Not Crush" Inactive 07/18/2014 [facility] Protonix 40 mg, 1 tab, Route: PO, Drug form: ECTAB, Before Breakfast, Start date: 07/18/14 7:30:00, Duration: 30 day, Stop date: 08/16/14 7:30:00Notes: Tablet should not be chewed or crushed. (Same as: Protonix) Inactive 07/18/2014 [facility] Synthroid 150 microgram, 1 tab, Route: PO, Drug form: TAB, Daily, Dosing Weight 62.727, kg, Start date: 07/18/14 6:30:00, Duration: 30 day, Stop date: 08/16/14 6:30:00Notes: Take 1 hour before or 2 hours after meal; Enteral feeds may interefere with the absorption of this medication. (Same as: Levothroid) Inactive 07/18/2014 [facility] Levemir 15 unit, 0.15 mL, Route: SUB-Q, Drug form: INJ, ONCE, Dosing Weight 62.727, kg, Priority: NOW, Start date: 07/17/14 21:34:00, Stop date: 07/17/14 21:34:00Notes: Same as Levemir "single patient use only" Inactive 07/18/2014 [facility] Acetaminophen 300 MG / Codeine Phosphate 30 MG Oral Tablet [Tylenol with Codeine #3] 1 tab, Route: PO, Drug Form: TAB, Dosing Weight 62.727, kg, Q6H, PRN Pain Score 4-6, Start date: 07/17/14 21:34:00, Duration: 30 day, Stop date: 08/16/14 21:33:00Notes: Do not exceed 4gm/day of acetaminophen. (Same as: Tylenol with Codeine # 3) No Longer Active 07/18/2014 [facility] Ambien 5 mg, 1 tab, Route: PO, Drug form: TAB, Bedtime, Dosing Weight 62.727, kg, PRN as needed for sleep, Priority: NOW, Start date: 07/17/14 21:33:00, Duration: 30 day, Stop date: 08/16/14 21:32:00Notes: (Same As: Ambien) No Longer Active 07/18/2014 [facility] Saline Flush 0.9% 10 ml, Route: IVP, Drug Form: INJ, Dosing Weight 62.727, kg, Q12H, Start date: 07/17/14 21:00:00, Duration: 30 day, Stop date: 08/16/14 9:00:00Notes: (Same as: BD Posiflush) No Longer Active 07/18/2014 [facility] Asacol 800 mg, 2 cap, Route: PO, Drug form: DRC, TID, Dosing Weight 62.727, kg, Start date: 07/17/14 20:50:00, Stop date: 08/16/14 17:00:00Notes: (Same as: Delzicol) No Longer Active 07/18/2014 [facility] Saline Flush 0.9% 10 ml, Route: IVP, Drug Form: INJ, Dosing Weight 62.727, kg, PRN, PRN Line Flush, Start date: 07/17/14 18:16:00, Duration: 30 day, Stop date: 08/16/14 17:15:00Notes: (Same as: BD Posiflush) No Longer Active 07/17/2014 [facility] Acetaminophen 650 mg, 2 tab, Route: PO, Drug form: TAB, Q4H, Dosing Weight 62.727, kg, PRN Pain 1-3/Temp > 99.5 F, Start date: 07/17/14 18:16:00, Duration: 30 day, Stop date: 08/16/14 18:15:00Notes: Do not exceed 4 gm/day. (Same as: Tylenol) No Longer Active 07/17/2014 [facility] Insulin, Aspart, Human 3 unit, 0.03 mL, Route: SUB-Q, Drug form: SOLN, TID-Before Meals, Dosing Weight 62.727, kg, PRN Blood Glucose Results, Start date: 07/17/14 18:15:00, Duration: 30 day, Stop date: 08/16/14 18:14:00Notes: Roll in palms of hands gently; Do not shake vigorously. (Same as: NovoLOG) "single patient use only" Stable for 28 days at room temperature. Expires in days from Date No Longer Active 07/17/2014 [facility] Glucagon 1 mg, Route: IM, Drug form: PDR/INJ, PRN, Dosing Weight 62.727, kg, PRN Blood Glucose Results, Start date: 07/17/14 18:15:00, Duration: 30 day, Stop date: 08/16/14 17:14:00 No Longer Active 07/17/2014 [facility] Dextrose 50% Syringe 12.5 gm, 25 mL, Route: IVP, Drug Form: INJ, Dosing Weight 62.727, kg, PRN, PRN Blood Glucose Results, Start date: 07/17/14 18:15:00, Duration: 30 day, Stop date: 08/16/14 17:14:00 No Longer Active 07/17/2014 [facility] Aspirin 81 MG Enteric Coated Tablet 81 mg, 1 tab, Route: PO, Drug form: ECTAB, Daily, Dosing Weight 62.727, kg, Start date: 07/17/14 17:12:00, Duration: 30 day, Stop date: 08/16/14 9:00:00Notes: Do not crush or chew. (Same As: Ecotrin) No Longer Active 07/17/2014 [facility] thiamine 100 mg oral tablet 100 mg=1 tab, PO, Daily, # 7 tab, 0 Refill(s) Active 07/17/2014 [facility] Aspirin 81 MG Enteric Coated Tablet 81 mg=1 tab, PO, Daily, # 0 tab, 0 Refill(s) Active 07/17/2014 [facility] 24 HR lamotrigine 300 MG Extended Release Enteric Coated Tablet [Lamictal] 300 mg=1 tab, PO, Daily, 0 Refill(s) Active 07/17/2014 [facility] montelukast 10 mg oral tablet 10 mg=1 tab, PO, Daily, # 30 tab, 0 Refill(s) Active 07/17/2014 [facility] Levothyroxine Sodium 0.15 MG Oral Tablet [Synthroid] 150 microgram=1 tab, PO, Daily, # 30 tab, 0 Refill(s) Active 07/17/2014 [facility] atorvastatin 40 MG Oral Tablet [Lipitor] 40 mg=1 tab, PO, QPM, # 30 tab, 0 Refill(s) Active 07/17/2014 [facility] Advair Diskus 250 mcg-50 mcg inhalation powder 1 puff, INHALATION, BID, # 28 ea, 0 Refill(s) Active 07/17/2014 [facility] gabapentin 400 MG Oral Capsule 400 mg=1 cap, PO, TID, total [id number] daily, # 120 cap, 0 Refill(s)Special Instructions: total [id number] daily Active 07/17/2014 [facility] gabapentin 600 MG Oral Tablet 600 mg=1 tab, PO, TID, # 270 tab, 0 Refill(s) Active 07/17/2014 [facility] Humira Q14D, 0 Refill(s) Active 07/17/2014 [facility] 200 ACTUAT Levalbuterol 0.045 MG/ACTUAT Metered Dose Inhaler [Xopenex] 2 puff, INHALATION, Q4H, as needed for wheezing, 0 Refill(s) Active 07/17/2014 [facility] buPROPion 450 mg/24 hours (XL) oral tablet, extended release 450 mg=1 tab, PO, Daily, 0 Refill(s) Active 07/17/2014 [facility] ACIPHEX 20 MG TBEC one tab twice a day Active 04/26/[facility] ADVAIR DISKUS 250-50 MCG/DOSE AEPB Active 04/26/2014 [facility] ASACOL HD 800 MG TBEC Active 04/26/2014 [facility] BRINTELLIX 20 MG TABS Active 04/26/2014 [facility] GABAPENTIN 600 MG TABS Active 04/26/2014 [facility] LIPITOR 40 MG TABS Active 04/26/2014 [facility] SINGULAIR 10 MG TABS Active 04/26/2014 [facility] VYVANSE 70 MG CAPS Active 04/26/2014 [facility] XOPENEX HFA AERO Active 04/26/2014 [facility] MUPIROCIN 2 % OINT apply small amount to affected area tid Active 04/26/2014 [facility] Singulair 10 mg, 1 tab, Route: PO, Drug form: TAB, QPM, Start date: 11/26/11 17:00:00, Duration: 30 day, Stop date: 12/25/11 17:00:00 PO No Longer Active [facility] 11/26/2011 [facility] atorvastatin 40 mg, 1 tab, Route: PO, Drug form: TAB, QPM, Start date: 11/26/11 17:00:00, Duration: 30 day, Stop date: 12/25/11 17:00:00 PO No Longer Active [facility] 11/26/2011 [facility] Valium 5 mg oral tablet 5 mg, 1 tab, PO, Q6H, PRN, 30 tab, spasms, Substitution Allowed, TAB PO Active [facility] 11/26/2011 [facility] Ambien 10 mg oral tablet 10 mg, 1 tab, PO, Bedtime, PRN, 30 tab, for sleep, Substitution Allowed, TAB PO Active [facility] 11/26/2011 [facility] [place] 10/325 oral tablet 1-2 tab, PO, Q4-6H, PRN, 40 tab, 1, 1, Pain, Substitution Allowed, Maintenance PO Active [facility] 11/26/2011 [facility] folic acid 0.4 mg, 1 tab, Route: PO, Drug form: TAB, Daily, Start date: 11/26/11 9:00:00, Duration: 30 day, Stop date: 12/25/11 9:00:00 PO No Longer Active [facility] 11/26/2011 [facility] tramadol 300 mg, 6 tab, Route: PO, Drug form: TAB, Daily, Start date: 11/26/11 9:00:00, Duration: 30 day, Stop date: 12/25/11 9:00:00 PO No Longer Active [facility] 11/26/2011 [facility] gabapentin 1,000 mg, Route: PO, TID, Start date: 11/26/11 9:00:00, Duration: 30 day, Stop date: 12/25/11 17:00:00 PO No Longer Active [facility] 11/26/2011 [facility] tolterodine 4 mg, 1 cap, Route: PO, Drug form: CAP, Daily, Start date: 11/26/11 9:00:00, Duration: 30 day, Stop date: 12/25/11 9:00:00 PO No Longer Active [facility] 11/26/2011 [facility] solifenacin 10 mg, Route: PO, Drug form: TAB, Daily, Start date: 11/26/11 9:00:00, Duration: 30 day, Stop date: 12/25/11 9:00:00 PO No Longer Active [facility] 11/26/2011 [facility] Vitamin B1 100 mg, 1 tab, Route: PO, Drug form: TAB, Daily, Start date: 11/26/11 9:00:00, Duration: 30 day, Stop date: 12/25/11 9:00:00 PO No Longer Active [facility] 11/26/2011 [facility] pantoprazole 40 mg, 1 tab, Route: PO, Drug form: ECTAB, BID, Start date: 11/26/11 9:00:00, Duration: 30 day, Stop date: 12/25/11 17:00:00 PO No Longer Active [facility] 11/26/2011 [facility] mesalamine 400 mg oral enteric coated tablet 800 mg, 2 tab, Route: PO, Drug form: ECTAB, TID, Start date: 11/26/11 9:00:00, Duration: 30 day, Stop date: 12/25/11 17:00:00 PO No Longer Active [facility] 11/26/2011 [facility] Lamictal 300 mg, 3 tab, Route: PO, Drug form: TAB, Daily, Start date: 11/26/11 9:00:00, Duration: 30 day, Stop date: 12/25/11 9:00:00 PO No Longer Active [facility] 11/26/2011 [facility] Advair Diskus 100 mcg-50 mcg inhalation powder 1 inhalation, Route: INHALATION, Drug Form: AERO, Q12H, Start date: 11/26/11 9:00:00, Duration: 30 day, Stop date: 12/25/11 21:00:00 INHALATION No Longer Active [facility] 11/26/2011 [facility] Wellbutrin XL 300 mg, 2 tab, Route: PO, Drug form: ERTAB, Daily, Start date: 11/26/11 9:00:00, Duration: 30 day, Stop date: 12/25/11 9:00:00 PO No Longer Active [facility] 11/26/2011 [facility] thiamine 100 mg, 1 tab, Route: PO, Drug form: TAB, Daily, Start date: 11/26/11 9:00:00, Duration: 30 day, Stop date: 12/25/11 9:00:00 PO No Longer Active [facility] 11/26/2011 [facility] multivitamin 1 tab, Route: PO, Drug Form: TAB, Daily, Start date: 11/26/11 9:00:00, Duration: 30 day, Stop date: 12/25/11 9:00:00 PO No Longer Active [facility] 11/26/2011 [facility] Neurontin 400 mg, 1 cap, Route: PO, Drug form: CAP, TID, Start date: 11/26/11 9:00:00, Duration: 30 day, Stop date: 12/25/11 17:00:00 PO No Longer Active [facility] 11/26/2011 [facility] levothyroxine 0.15 mg, 1 tab, Route: PO, Drug form: TAB, Q630AM, Start date: 11/26/11 6:30:00, Duration: 30 day, Stop date: 12/25/11 6:30:00 PO No Longer Active [facility] 11/26/2011 [facility] Levothroid 0.025 mg, 1 tab, Route: PO, Drug form: TAB, Q630AM, Start date: 11/26/11 6:30:00, Duration: 30 day, Stop date: 12/25/11 6:30:00 PO No Longer Active [facility] 11/26/2011 [facility] insulin aspart 10 unit, 0.1 mL, Route: SUB-Q, Drug form: SOLN, TID-Before Meals, PRN Blood Glucose Results, Start date: 11/26/11 1:16:00, Duration: 30 day, Stop date: 12/26/11 1:15:00 SUB- Q No Longer Active [facility] 11/26/2011 [facility] glucagon 1 mg, Route: IM, Drug form: PDR/INJ, PRN, PRN Blood Glucose Results, Start date: 11/26/11 1:16:00, Duration: 30 day, Stop date: 12/26/11 2:15:00 IM No Longer Active [facility] 11/26/2011 [facility] Dextrose 50% Syringe 25 gm, 50 mL, Route: IVP, Drug Form: INJ, PRN, PRN Blood Glucose Results, Start date: 11/26/11 1:16:00, Duration: 30 day, Stop date: 12/26/11 2:15:00 IVP No Longer Active [facility] 11/26/2011 [facility] acetaminophen 650 mg, 2 tab, Route: HI, Drug form: TAB, Q4H, PRN Pain/Fever, Start date: 11/26/11 1:16:00, Duration: 30 day, Stop date: 12/26/11 1:15:00 HI No Longer Active [facility] 11/26/2011 [facility] ondansetron 4 mg, 1 tab, Route: PO, Drug form: TAB, Q6H, PRN Nausea & Vomiting, Start date: 11/26/11 1:16:00, Duration: 30 day, Stop date: 12/26/11 1:15:00 PO No Longer Active [facility] 11/26/2011 [facility] Toradol 15 mg/mL injectable solution 15 mg, 1 mL, Route: IV, Drug form: INJ, Q6H, PRN Pain, Start date: 11/26/11 1:16:00, Duration: 4 day, Stop date: 11/30/11 1:15:00 IV No Longer Active [facility] 11/26/2011 [facility] Neurontin 800 mg, 2 cap, Route: PO, Drug form: CAP, ONCE, Start date: 11/26/11 1:14:00, Stop date: 11/26/11 1:14:00 PO No Longer Active [facility] 11/26/2011 [facility] gabapentin 200 mg, 2 cap, Route: PO, Drug form: CAP, ONCE, Start date: 11/26/11 1:14:00, Stop date: 11/26/11 1:14:00 PO No Longer Active [facility] 11/26/2011 [facility] normal saline 0.9% IV 1,000 mL 1,000 mL, Rate: 75 ml/hr, Infuse over: 13.3 hr, Route: IV, Total Volume: 1,000, Start date: 11/26/11 1:13:00, Duration: 30 day, Stop date: 12/26/11 1:12:00 IV No Longer Active [facility] 11/26/2011 [facility] gabapentin 800 mg oral tablet 800 mg, 2 cap, Route: PO, Drug form: CAP, TID, Start date: 11/26/11 0:37:00, Duration: 30 day, Stop date: 12/25/11 17:00:00 PO No Longer Active [facility] 11/26/2011 [facility] Xopenex 0.63 mg, 3 mL, Route: NEB, Drug form: SOLN, Q8H, Start date: 11/26/11 0:00:00, Duration: 30 day, Stop date: 12/25/11 16:00:00 NEB No Longer Active [facility] 11/26/2011 [facility] Wellbutrin XL 300 mg/24 hours oral tablet, extended release 300 mg, 1 tab, PO, Daily, 30 tab, Substitution Allowed, ERTAB PO Active [facility] 11/26/2011 [facility] VESIcare 10 mg oral tablet 10 mg, 1 tab, PO, Daily, 30 tab, Substitution Allowed, TAB PO Active [facility] 11/26/2011 [facility] tramadol 300 mg oral tablet, extended release 300 mg, 1 tab, PO, Daily, 30 tab, Substitution Allowed, ERTAB PO Active 11/26/2011 [facility] Lipitor 40 mg oral tablet 40 mg, 1 tab, PO, Daily, 30 tab, Substitution Allowed, TAB PO No Longer Active 11/26/2011 [facility] Aciphex 20 mg oral enteric coated tablet 20 mg, 1 tab, PO, BID, 14 tab, Substitution Allowed, ECTAB PO Active 11/26/2011 [facility] etomidate 10 mg, 5 mL, Route: IVP, Drug form: INJ, ONCE, Priority: STAT, Start date: 11/25/11 19:50:00, Stop date: 11/25/11 19:50:00 IVP No Longer Active [facility] 11/26/2011 [facility] hydromorphone 1 mg, Route: IVP, ONCE, Priority: STAT, Start date: 11/25/11 19:32:00, Stop date: 11/25/11 19:32:00 IVP No Longer Active [facility] 11/26/2011 [facility] multivitamin Substitution Allowed, Maintenance Active 11/26/2011 [facility] Colace 100 mg oral capsule 200 mg, 2 cap, PO, BID, Substitution Allowed PO Active 11/26/2011 [facility] tramadol Substitution Allowed No Longer Active 11/26/2011 [facility] Zofran ODT 4 mg, 1 tab, Route: SL, Drug form: TABDIS, ONCE, Priority: STAT, Start date: 11/25/11 18:18:00, Stop date: 11/25/11 18:18:00 SL No Longer Active [facility] 11/26/2011 [facility] morphine Sulfate 4 mg, 2 mL, Route: IVP, Drug form: INJ, ONCE, Priority: STAT, Start date: 11/25/11 18:18:00, Stop date: 11/25/11 18:18:00 IVP No Longer Active [facility] 11/26/2011 [facility] Saline Flush 0.9% 5 ml, Route: IVP, Drug Form: INJ, PRN, PRN Line Flush, Start date: 11/25/11 18:18:00, Duration: 30 day, Stop date: 12/25/11 19:17:00 IVP No Longer Active [facility] 11/26/2011 [facility] Xopenex Substitution Allowed Active 11/25/2011 [facility] Remicade Substitution Allowed Active 11/25/2011 [facility] Aciphex Substitution Allowed No Longer Active 11/25/2011 [facility] Levemir 100 units/mL subcutaneous solution Substitution Allowed Active 11/25/2011 [facility] NovoLog Substitution Allowed Active 11/25/2011 [facility] Vesicare 10mg 1 tab, PO, Daily, 30 tab, Substitution Allowed, TAB PO Active 11/25/2011 [facility] VESIcare Substitution Allowed No Longer Active 11/25/2011 [facility] Asacol 800 mg, TID, Substitution Allowed Active 11/25/2011 [facility] Tylenol with Codeine #3 oral tablet Substitution Allowed, Maintenance Active 11/25/2011 [facility] Allergies, Adverse Reactions, Alerts Substance Category Reaction Severity Reaction type Status Date Reported Comments Source AMOXICILLIN Drug allergy AMOXICILLIN 04/26/2014 [facility] BACTRIM Drug allergy BACTRIM 04/26/2014 [facility] REMICAID Drug allergy REMICAID 04/26/2014 [facility] amoxicillin<sup>1</sup> Assertion Drug allergy Active 04/26/2014 1Data migrated from [employer] on 02/08/15. Originally documented as AMOXICILLIN. [facility] inFLIXimab<sup>2</sup> Assertion Drug allergy Active 04/26/2014 2Data migrated from [employer] on 02/08/15. Originally documented as REMICAID. [facility] sulfamethoxazole-trimethoprim<sup>3</sup> Assertion Drug allergy Active 04/26/2014 3Data migrated from [employer] on 02/08/15. Originally documented as BACTRIM. [facility] sulfamethoxazole-trimethoprim<sup>2</sup> Assertion Drug allergy Active 04/26/2014 Data migrated from [employer] on 02/08/15. Originally documented as BACTRIM. [facility] inFLIXimab<sup>3</sup> Assertion Drug allergy Active 04/26/2014 Data migrated from [employer] on 02/08/15. Originally documented as REMICAID. [facility] Remicade Assertion Drug allergy Active [facility] Bactrim Assertion Drug allergy Active [facility] Immunizations Immunization Date Given Site Status Last Updated Comments Source influenza virus vaccine, inactivated 07/30/2014 Not Given [facility] influenza virus vaccine, inactivated 07/30/2014 Not Given [facility], [facility] influenza virus vaccine, inactivated 07/30/2014 Not Given [facility], [facility] influenza virus vaccine, inactivated 07/30/2014 Not Given [facility], [facility] influenza virus vaccine, inactivated<sup>1</sup> 07/30/2014 Not Given [facility] Results Order Name Results Value Reference Range Date Interpretation Comments Source Hip 2/3 views uni w pelvis DX Hip 2/3 views uni w pelvis DX EXAM: XR RIGHT HIP 3 VIEW DATE: 09/23/2018 15:29 BROKERAGE CLERK INDICATION: - M25.551 Pain in right hip COMPARISON: Bone length examination of 12/12/2015. TECHNIQUE: 3 views of the hip including the pelvis FINDINGS: No acute fracture or malalignment is identified. Hip joint spaces are preserved. Tiny osteophytes are present. Mild lower lumbar spine facet hypertrophy and osteophyte formation are partially imaged. Diffuse vascular calcifications are present at the iliac and femoral vessels. IMPRESSION: Minimal osteophytes with hip joint spaces preserved bilaterally. 09/23/2018 - - Read by: Yenifer Colbert MD Dictated Date/time: 09/24/18 08:43 Electronically Signed by: Yenifer Colbert MD 09/24/18 08:45 FINAL REPORT [facility] Esophagus BA swallow function video DX Esophagus BA swallow function video DX Patient Name: STEPHIE ARTHUR : 1955; Age: 63 years Female MR: [id number] Study: Esophagus BA swallow function video DX Order Time: 08/26/2018 9:16 AM BROKERAGE CLERK Clinical Indication: - R13.12 Dysphagia, oropharyngeal phase. Pt stated she has a history of Cee's Esophagus and some type of esophageal surgery but does not remember what type. Esophageal dilation. COMPARISON: None. Fluoroscopy time: 0.4min Reference Air Kerma: 0.92 mGy TECHNIQUE: Fluoroscopic assistance was provided for the speech pathologist for modified barium swallow examination. Varying consistencies of barium were administered po. FINDINGS: Thin consistency barium: No aspiration or any significant laryngeal penetration. Dobson consistency barium: No aspiration or any significant laryngeal penetration. Pudding coated barium: No aspiration or any significant laryngeal penetration. Barium with cracker preparation: No aspiration or any significant laryngeal penetration. IMPRESSION: Normal modified swallow. SL: [id number] 08/26/2018 - - Read by: Uriel Bradley MD Dictated Date/time: 08/26/18 11:20 Electronically Signed by: Uriel Bradley MD 08/26/18 11:21 FINAL REPORT [facility] Chest 2 views DX Chest 2 views DX Patient Name: STEPHIE ARTHUR : 1955; Age: 63 years y/o Female MR: [id number] * CHEST, 2 views HISTORY: - dyspnea on exertion; COMPARISON: 07/17/2014. A chest computed tomography scan from today was reviewed. TECHNIQUE: Frontal and lateral radiographs of the chest were obtained. FINDINGS: There is slight chronic elevation of the right hemidiaphragm. There is no evidence of an active or acute process within the chest. The lungs are clear. There are no pleural effusions. There is borderline cardiomegaly. There is no overt failure. The regional skeleton is unremarkable. IMPRESSION: 1. No active disease. 2. Borderline cardiomegaly. SL: SARIKA 08/06/2018 - - Read by: Panchito Van MD Dictated Date/time: 08/07/18 05:01 Electronically Signed by: Panchito Van MD 08/07/18 05:03 FINAL REPORT [facility] Chest wo contrast CT Chest wo contrast CT CT CHEST WITHOUT CONTRAST: HISTORY: History of asthma, chest pain. TECHNIQUE: Multislice axial acquisitions were done through the chest without contrast. Sagittal and coronal reformatted images were also obtained. DLP 250 mGycm. FINDINGS: There is respiratory motion with artifact over the mid mediastinum and lower lungs slightly limiting evaluation. There is mild linear subsegmental atelectasis in the lung bases. There are no other significant pulmonary or pleural abnormalities. There is no mediastinal mass or significant lymph node enlargement. A small hiatal hernia is noted. Atherosclerotic calcifications in the aorta and coronary arteries are present. There are no acute osseous abnormalities. There are no significant abnormalities of the visible upper abdomen. IMPRESSION: 1. Mild bibasilar subsegmental atelectasis. 2. Small hiatal hernia. 3. No other acute CT abnormalities of the chest. [id number] 08/06/2018 - - Read by: Iain Goff MD Dictated Date/time: 08/07/18 10:42 Electronically Signed by: Iain Goff MD 08/07/18 10:47 FINAL REPORT [facility] Foot series DX Foot series DX EXAM: XR LEFT FOOT 3 VIEWS DATE: 04/07/2018 12:33 PM CDT INDICATION: - DIABETES MELLITUS DUE TO UNDERLYING CONDITION WITH DIABETIC NEPHROPATHY COMPARISON: 03/04/2018 TECHNIQUE: AP, lateral and oblique radiographs of the foot FINDINGS: No acute fracture or malalignment is identified. There is no periosteal reaction, focal erosion or cortical destruction to indicate the presence of acute osteomyelitis. Small plantar calcaneal enthesophyte present. Bipartite medial hallux sesamoid. Mild forefoot soft tissue swelling is present. Atherosclerotic vascular calcifications are present. IMPRESSION: 1. Soft tissue swelling of the forefoot. 2. No radiographic evidence of acute osteomyelitis. MRI of the forefoot may be considered if there is a persistent clinical concern.. 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 Foreign body. Comparison Exam: None Discussion: No fractures or dislocations are seen of the left foot. Soft tissue swelling is seen overlying the base of the 5th metatarsal bone. No radiopaque foreign bodies appreciated. Joint spaces are unremarkable. Impression: 1. No radiopaque foreign bodies appreciated. 03/04/2018 - - Read by: Bhaskar Dugan MD Dictated Date/time: 03/05/18 09:20 Electronically Signed by: Bhaskar Dugan MD 03/05/18 09:24 FINAL REPORT [facility]ammo Scrn GURINDER incl CAD [place] Breast Mammo Scrn GURINDER incl CAD NV BILATERAL DIGITAL SCREENING MAMMOGRAM WITH CAD: 10/02/2017 CLINICAL: Routine/Screening. Current study was evaluated with a Computer Aided Detection (CAD) system. COMPARISON:Comparison is made to exams dated: 08/04/2016 mammogram, 09/25/2014 mammogram, 06/21/2013 mammogram - [facility], 09/18/2011 mammogram, and 09/03/2010 mammogram - [facility]. TECHNIQUE: Mammographic views were obtained using digital acquisition. Current study was also evaluated with a Computer Aided Detection (CAD) system. FINDINGS: There are scattered fibroglandular densities in both breasts. There are benign vascular calcifications in both breasts. No significant masses, calcifications, or other findings are seen in either breast. There has been no significant interval change. IMPRESSION: BENIGN RECOMMENDATION:There is no mammographic evidence of malignancy. A 1 year screening mammogram is recommended.(10/03/2018) This exam was interpreted at [id number] for SELENE Santana. Professional services are provided by the [facility]. Elham Oliver M.D. ak/penalyssa:10/02/2017 09:01:08 Adjunct Art History Instructor(s): Michelle Mcdaniels, RT(R)(M), [facility] letter sent: BI-RADS 1/2 Mammogram BI-RADS: 2 Benign 10/02/2017 - - Read by: Elham Oliver MD Dictated Date/time: 10/02/17 09:01 Electronically Signed by: Elham Oliver MD 10/02/17 09:01 FINAL [facility] Ribs unilateral DX Ribs unilateral DX EXAMINATION: Left ribs unilateral HISTORY: S39.92XA Unspecified injury of lower back, initial encounter - M54.6 Pain in thoracic spine; posterior left-sided chest wall pain status post trauma FINDINGS: 4 views of the left ribs are performed and compared to chest radiograph dated 07/28/2014. There are no displaced left-sided rib fractures. There is no left pleural effusion or left-sided pneumothorax. Cholecystectomy clips are noted. IMPRESSION: 1. No displaced left-sided rib fractures. 10/01/2017 - - Read by: Bj Camp MD Dictated Date/time: 10/01/17 13:26 Electronically Signed by: Bj Camp MD 10/01/17 13:28 FINAL REPORT [facility] Spine thoracic 3 views DX Spine thoracic 3 views DX EXAMINATION: 1. Thoracic spine 3 views 2. Lumbar spine series HISTORY: - M54.6 Pain in thoracic spine; left-sided thoracic and lumbar back pain status post fall; thoracic degenerative disc disease; lumbar spondylosis FINDINGS: Frontal, lateral, and swimmer's views of the thoracic spine and frontal, lateral, coned lateral, and bilateral oblique views of the lumbar spine are performed and compared to lumbar MRI dated 12/09/2016. There is mild focal levocurvature of the thoracic spine centered near T4-5. There is no listhesis of the thoracic spine. The thoracic vertebral body heights are normal without compression fracture. There is mild multilevel degenerative disc disease of the mid to lower thoracic spine. Cholecystectomy clips are noted. There is mild dextrocurvature of the lumbar spine centered at L2-L3. There is no listhesis of the lumbar spine. The lumbar vertebral body heights are normal without compression fracture. There is mild L3-4 through L5-S1 degenerative disc disease. There are no pars interarticularis defects identified. The sacral ala appear intact. Large amount of stool is noted within the colon. IMPRESSION: 1. Mild focal levocurvature of the thoracic spine centered near T4-5 with mild multilevel degenerative disc disease of the mid to lower thoracic spine. 2. Mild dextrocurvature of the lumbar spine centered at L2-L3 with mild L3-4 through L5-S1 degenerative disc disease. 10/01/2017 - - Read by: Bj Camp MD Dictated Date/time: 10/01/17 13:28 Electronically Signed by: Bj Camp MD 10/01/17 13:32 FINAL REPORT PRANAV Mcelroy Spine lumbar series DX Spine lumbar series DX EXAMINATION: 1. Thoracic spine 3 views 2. Lumbar spine series HISTORY: - M54.6 Pain in thoracic spine; left-sided thoracic and lumbar back pain status post fall; thoracic degenerative disc disease; lumbar spondylosis FINDINGS: Frontal, lateral, and swimmer's views of the thoracic spine and frontal, lateral, coned lateral, and bilateral oblique views of the lumbar spine are performed and compared to lumbar MRI dated 12/09/2016. There is mild focal levocurvature of the thoracic spine centered near T4-5. There is no listhesis of the thoracic spine. The thoracic vertebral body heights are normal without compression fracture. There is mild multilevel degenerative disc disease of the mid to lower thoracic spine. Cholecystectomy clips are noted. There is mild dextrocurvature of the lumbar spine centered at L2-L3. There is no listhesis of the lumbar spine. The lumbar vertebral body heights are normal without compression fracture. There is mild L3-4 through L5-S1 degenerative disc disease. There are no pars interarticularis defects identified. The sacral ala appear intact. Large amount of stool is noted within the colon. IMPRESSION: 1. Mild focal levocurvature of the thoracic spine centered near T4-5 with mild multilevel degenerative disc disease of the mid to lower thoracic spine. 2. Mild dextrocurvature of the lumbar spine centered at L2-L3 with mild L3-4 through L5-S1 degenerative disc disease. 10/01/2017 - - Read by: Bj Camp MD Dictated Date/time: 10/01/17 13:28 Electronically Signed by: Bj Camp MD 10/01/17 13:32 FINAL REPORT SELENE Mcelroy Spine lumbar w/wo contrast MRI Spine lumbar w/wo contrast MRI MRI lumbar spine without and with contrast 12/09/2016 8:13 AM BROKERAGE CLERK COMPARISON: 04/25/2014 MRI exam. TECHNIQUE: Sagittal T1, sagittal T2 with fat saturation, axial T1 and axial T2 images were obtained. Intravenous gadolinium was given. FINDINGS: The conus medullaris terminates at the L1-L2 level. Congenital shortened lumbar pedicles are seen. T12-L1: Unremarkable. L1-L2: Unremarkable. L2-L3: Approximately 1.5 mm disc bulge is stable since 2013 with moderate ligamenta flava redundancy and minimal central canal stenosis. Stable mild left foraminal stenosis due to disc bulge encroachment, without mass effect on the left L2 exiting nerve root. L3-L4: Stable 2.4 mm disc bulge with mild to moderate central canal stenosis. There is moderate bilateral foraminal stenosis due to disc bulge encroachment, with mild mass effect on the bilateral L3 exiting nerve roots. L4-L5: Stable approximately 2.5 mm disc bulge with mild to moderate central canal stenosis. Stable mild bilateral foraminal stenosis. L5-S1: No significant central canal stenosis. Approximately 1.5 mm disc bulge is seen, with mild bilateral foraminal stenosis. No abnormal enhancement is identified. IMPRESSION: 1. Essentially stable multilevel degenerative changes compared to 2013. 2. Stable L3-L4 moderate bilateral foraminal stenosis with mild mass effect on the bilateral L3 nerve roots. Bilateral levels of mild foraminal stenosis are present. 3. Stable L3-L4 and L4-L5 mild to moderate central canal stenosis. 12/09/2016 - - Read by: Nicholas Espinosa MD Dictated Date/time: 12/09/16 12:06 Electronically Signed by: Nicholas Espinosa MD 12/09/16 13:42 FINAL REPORT SELENE Mcelroy Thyroid US Thyroid US EXAM: Thyroid ultrasound. 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 Graves' disease. . COMPARISON: Thyroid ultrasound: None. TECHNIQUE: Grayscale and doppler sonogram of the thyroid gland. FINDINGS: Thyroid gland measurements: -- Right lobe: 2.2 x 0.6 x 0.7 cm. -- Left lobe: 2.7 x 0.7 x 1.1 cm. -- Isthmus: 0.1 cm. Thyroid gland parenchyma: -- Size: Atrophic. -- Echotexture: Mildly heterogeneous. -- Vascularity: Within normal limits. Thyroid nodule(s): -- Right lobe: No suspicious nodules. -- Left lobe: 0.5 cm superior solid nodule (nodule 1). -- Isthmus: No suspicious nodules. Nodule 1: -- Size: 0.5 x 0.3 x 0.5 cm. -- Location: Superior left lobe. -- Composition: Solid or almost completely solid. -- Echogenicity: Very hypoechoic. -- Shape: Wider than tall. -- Margins: Ill-defined. -- Echogenic foci: Absent. Lymph nodes: No visualized suspicious lymphadenopathy. Other: None. IMPRESSION: 1. Atrophic, mildly heterogeneous thyroid gland. 2. Subcentimeter left lobe nodule for which tissue sampling is not needed, based on SRU criteria (as below). Note: Society of Radiologists in Ultrasound (SRU) Consensus Conference Statement (2005): 1. Solitary nodule: a. Microcalcifications: Strongly consider US guided FNA if >/=1 cm. b. Solid (or almost entirely solid): Strongly consider US guided FNA if >/=1.5 cm. c. Coarse calcifications: Strongly consider US guided FNA if >/=1.5 cm. d. Mixed solid and cystic (or almost entirely cystic with solid mural component): Consider US guided FNA if >/=2 cm. e. Substantial interval growth (in the absence of above findings): Consider US guided FNA. f. Almost entirely cystic (in the absence of the above findings): US guided FNA probably unnecessary. 2. Multiple nodules: a. Consider US guided FNA of 1 or more nodules, with selection prioritized on basis of criteria for solitary nodule. 3. Other: a. FNA is likely unnecessary in diffusely enlarged gland with multiple nodules of similar US appearance without intervening parenchyma. b. Presence of abnormal lymph nodes overrides US features of thyroid nodule and should prompt US guided FNA or biopsy of lymph node and/or ipsilateral nodule. c. Recommendations apply only to nodules 1 cm or larger in size because of the uncertainty as to whether or not diagnosis of smaller cancers improves life expectancy, as well as concern that inclusion of smaller nodules would lead to an excessive number of biopsies. 11/25/2016 - - Read by: Amari Freed MD Dictated Date/time: 11/25/16 09:38 Electronically Signed by: Amari Freed MD 11/25/16 09:43 FINAL REPORT SELENE Mcelroy Digital Mammo Screening Gurinder MA Digital Mammo Screening Gurinder MA - DIGITAL MAMMO SCREENING GURINDER MA BILATERAL DIGITAL SCREENING MAMMOGRAM WITH CAD: 08/04/2016 CLINICAL: Routine. Current study was evaluated with a Computer Aided Detection (CAD) system. Comparison is made to exams dated: 09/25/2014 mammogram, 06/21/2013 mammogram - [facility], 09/18/2011 mammogram and 09/03/2010 mammogram - [facility]. There are scattered fibroglandular densities in both breasts. No significant masses, calcifications, or other findings are seen in either breast. There has been no significant interval change. IMPRESSION: NEGATIVE There is no mammographic evidence of malignancy. A 1 year screening mammogram is recommended. Professional services are provided by the [facility]. Linda magaña/eliseo:08/05/2016 08:56:50 Adjunct Art History Instructor: Mihcelle PATEL(R)([employer]), [facility] This exam was dictated and interpreted by [id number] for SELENE Santana. letter sent: Normal exam Mammogram BI-RADS: 1 Negative 08/04/2016 - - Read by: Linda Skinner MD Dictated Date/time: 08/05/16 08:56 Electronically Signed by: Linda Skinner MD 08/05/16 08:56 FINAL REPORT SELENE Mcelroy CHEM PANEL eGFR 76 mL/min/1.73m2 04/19/2016 Result Comment: The eGFR is calculated using the CKD-EPI formula. In most young, healthy individuals the eGFR will be >90 mL/min/1.73m2. The eGFR declines with age. An eGFR of 60-89 may be normal in some populations, particularly the elderly, for whom the CKD-EPI formula has not been extensively validated. Use of the eGFR is not recommended in the following populations: Individuals with unstable creatinine concentrations, including patients and those with serious co-morbid conditions. Patients with extremes in muscle mass or diet. The data above are obtained from the National Kidney Disease Education Program (NKDEP) which additionally recommends that when the eGFR is used in patients with extremes of body mass index for purposes of drug dosing, the eGFR should be multiplied by the estimated BMI. [facility] CHEM PANEL AST 30 unit/L 0 - 37 04/19/2016 [facility] CHEM PANEL Alk Phos 118 unit/L 39 - 136 04/19/2016 [facility] CHEM PANEL Bili Total 0.5 mg/dL 0.2 - 1.3 04/19/2016 [facility] CHEM PANEL ALT 41 unit/L 0 - 65 04/19/2016 [facility] CHEM PANEL Total Protein 7.8 g/dL 6.4 - 8.4 04/19/2016 [facility] CHEM PANEL Albumin Lvl 4.1 g/dL 3.5 - 5.0 04/19/2016 [facility] CHEM PANEL CO2 33 meq/L 24 - 32 04/19/2016 [facility] CHEM PANEL Calcium Lvl 9.2 mg/dL 8.5 - 10.5 04/19/2016 [facility] CHEM PANEL Chloride Lvl 100 meq/L 95 - 109 04/19/2016 [facility] CHEM PANEL Potassium Lvl 3.6 meq/L 3.5 - 5.1 04/19/2016 [facility] CHEM PANEL Sodium Lvl 142 meq/L 135 - 145 04/19/2016 [facility] CHEM PANEL Creatinine Lvl 0.85 mg/dL 0.50 - 1.40 04/19/2016 [facility] CHEM PANEL BUN 14 mg/dL 7 - 22 04/19/2016 [facility] CHEM PANEL Glucose Lvl 70 mg/dL 70 - 99 04/19/2016 [facility] CHEM PANEL AGAP 12.6 meq/L 10.0 - 20.0 04/19/2016 [facility] CHEM PANEL B/C Ratio 16 6 - 25 04/19/2016 [facility] CHEM PANEL Globulin 3.7 g/dL 2.0 - 4.0 04/19/2016 [facility] CHEM PANEL A/G Ratio 1.1 0.7 - 1.6 04/19/2016 [facility] CHEM PANEL Vitamin D, 25-OH, Total 35 ng/mL 30 - 100 04/19/2016 [facility] MPV 6.7 fL 7.4 - 10.4 04/19/2016 [facility] Platelet 293 K/CMM 133 - 450 04/19/2016 [facility] RDW 13.3 % 11.5 - 14.5 04/19/2016 [facility] MCV 87.8 fL 80.0 - 98.0 04/19/2016 [facility] WBC 8.3 K/CMM 3.7 - 10.4 04/19/2016 [facility] RBC 4.71 M/CMM 4.20 - 5.40 04/19/2016 [facility] MCHC 33.4 g/dL 32.0 - 36.0 04/19/2016 [facility] MCH 29.3 pg 27.0 - 31.0 04/19/2016 [facility] Hct 41.4 % 36.0 - 48.0 04/19/2016 [facility] Hgb 13.8 g/dL 12.0 - 16.0 04/19/2016 [facility] Basophils 1.0 % 0.0 - 1.0 04/19/2016 [facility] Eosinophils 2.0 % 0.0 - 4.0 04/19/2016 [facility] Target Cell Slight 04/19/2016 [facility] Plt Morph Normal (04/19/16 8:12 AM) 04/19/2016 [facility] Stomatocyte Slight 04/19/2016 [facility] Atypical Lymphs 18.0 % <=0.0 % 04/19/2016 [facility] Monocytes 8.0 % 2.0 - 12.0 04/19/2016 [facility] Lymphocytes 51.0 % 20.0 - 40.0 04/19/2016 [facility] Bands 0.0 % 0.0 - 11.0 04/19/2016 [facility] Segs 20.0 % 45.0 - 75.0 04/19/2016 [facility] Eosinophils # 0.2 K/CMM 0.0 - 0.5 04/19/2016 [facility] Basophils # 0.1 K/CMM 0.0 - 0.2 04/19/2016 [facility] Monocytes # 0.7 K/CMM 0.0 - 0.8 04/19/2016 [facility] Lymphocytes # 5.7 K/CMM 1.0 - 5.5 04/19/2016 [facility] HEMATOLOGY Segs-Bands # 1.7 K/CMM 1.5 - 8.1 04/19/2016 [facility] LIPIDS Trig 67 mg/dL <=149 mg/dL 04/19/2016 [facility] LIPIDS Chol 202 mg/dL <=199 mg/dL 04/19/2016 [facility] LIPIDS HDL 116 mg/dL >=61 mg/dL 04/19/2016 [facility] LIPIDS VLDL 13 04/19/2016 [facility] LIPIDS LDL (Calculated) 73 mg/dL <=99 mg/dL 04/19/2016 [facility] LIPIDS CHD Risk 1.74 3.90 - 5.80 04/19/2016 [facility] URINE CHEM U Creatinine 175.00 mg/dL 04/19/2016 [facility] URINE CHEM U Microalb 52.3 mg/L 04/19/2016 [facility] URINE CHEM U Alb/Crea 29.9 mcg/mg creat <=30.0 mcg/mg creat 04/19/2016 [facility] Hgb 11.9 g/dL 12.0 - 16.0 12/19/2015 [facility] HEMATOLOGY Hct 35.8 % 36.0 - 48.0 12/19/2015 [facility] Hct 35.1 % 36.0 - 48.0 12/18/2015 [facility] Hgb 11.7 g/dL 12.0 - 16.0 12/18/2015 [facility] CHEM PANEL eGFR 98 mL/min/1.73m2 12/17/2015 Result Comment: The eGFR is calculated using the CKD-EPI formula. In most young, healthy individuals the eGFR will be >90 mL/min/1.73m2. The eGFR declines with age. An eGFR of 60-89 may be normal in some populations, particularly the elderly, for whom the CKD-EPI formula has not been extensively validated. Use of the eGFR is not recommended in the following populations: Individuals with unstable creatinine concentrations, including patients and those with serious co-morbid conditions. Patients with extremes in muscle mass or diet. The data above are obtained from the National Kidney Disease Education Program (NKDEP) which additionally recommends that when the eGFR is used in patients with extremes of body mass index for purposes of drug dosing, the eGFR should be multiplied by the estimated BMI. 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 COMPARISON: December 2015 multiple x-rays. 10/25/2015. 2 views right knee IMPRESSION: 1. Complete right knee replacement. Intact orthopedic hardware. 2. Postoperative air and fluid. 3. No acute fracture. SL: [id number] 12/17/2015 - - Read by: Uriel Bradley MD Dictated Date/time: 12/17/15 16:32 Electronically Signed by: Uriel Bradley MD 12/17/15 16:37 FINAL REPORT [facility] RESULTS ABO/Rh O POS 12/14/2015 [facility] RESULTS Antibody Scrn Negative (12/14/15 2:50 PM) 12/14/2015 [facility] RESULTS ABO/Rh O POS 12/12/2015 [facility] RESULTS Antibody Scrn Negative (12/12/15 5:18 PM) 12/12/2015 [facility] ELECTROLYTES AGAP 9.7 meq/L 10.0 - 20.0 12/12/2015 [facility] ELECTROLYTES A/G Ratio 1.1 0.7 - 1.6 12/12/2015 [facility] ELECTROLYTES Globulin 3.7 g/dL 2.0 - 4.0 12/12/2015 [facility] ELECTROLYTES B/C Ratio 16 6 - 25 12/12/2015 [facility] ELECTROLYTES eGFR 79 mL/min/1.73m2 12/12/2015 Result Comment: The eGFR is calculated using the CKD-EPI formula. In most young, healthy individuals the eGFR will be >90 mL/min/1.73m2. The eGFR declines with age. An eGFR of 60-89 may be normal in some populations, particularly the elderly, for whom the CKD-EPI formula has not been extensively validated. Use of the eGFR is not recommended in the following populations: Individuals with unstable creatinine concentrations, including patients and those with serious co-morbid conditions. Patients with extremes in muscle mass or diet. The data above are obtained from the National Kidney Disease Education Program (NKDEP) which additionally recommends that when the eGFR is used in patients with extremes of body mass index for purposes of drug dosing, the eGFR should be multiplied by the estimated BMI. [facility] ELECTROLYTES ALT 53 unit/L 0 - 65 12/12/2015 [facility] ELECTROLYTES Bili Total 0.4 mg/dL 0.2 - 1.3 12/12/2015 [facility] ELECTROLYTES Alk Phos 116 unit/L 39 - 136 12/12/2015 [facility] ELECTROLYTES AST 31 unit/L 0 - 37 12/12/2015 [facility] ELECTROLYTES Chloride Lvl 100 meq/L 95 - 109 12/12/2015 [facility] ELECTROLYTES Creatinine Lvl 0.82 mg/dL 0.50 - 1.40 12/12/2015 [facility] ELECTROLYTES Sodium Lvl 139 meq/L 135 - 145 12/12/2015 [facility] ELECTROLYTES Potassium Lvl 3.7 meq/L 3.5 - 5.1 12/12/2015 [facility] ELECTROLYTES Glucose Lvl 130 mg/dL 70 - 99 12/12/2015 [facility] ELECTROLYTES BUN 13 mg/dL 7 - 22 12/12/2015 [facility] ELECTROLYTES Total Protein 7.7 g/dL 6.4 - 8.4 12/12/2015 [facility] ELECTROLYTES CO2 33 meq/L 24 - 32 12/12/2015 [facility] ELECTROLYTES Albumin Lvl 4.0 g/dL 3.5 - 5.0 12/12/2015 [facility] ELECTROLYTES Calcium Lvl 8.8 mg/dL 8.5 - 10.5 12/12/2015 [facility] RDW 13.8 % 11.5 - 14.5 12/12/2015 [facility] MCHC 32.9 g/dL 32.0 - 36.0 12/12/2015 [facility] MPV 6.5 fL 7.4 - 10.4 12/12/2015 [facility] Platelet 251 K/CMM 133 - 450 12/12/2015 [facility] RBC 4.96 M/CMM 4.20 - 5.40 12/12/2015 [facility] Hgb 14.4 g/dL 12.0 - 16.0 12/12/2015 [facility] HEMATOLOGY MCH 29.0 pg 27.0 - 31.0 12/12/2015 [facility] HEMATOLOGY Hct 43.7 % 36.0 - 48.0 12/12/2015 [facility] HEMATOLOGY MCV 88.1 fL 80.0 - 98.0 12/12/2015 [facility] HEMATOLOGY WBC 6.1 K/CMM 3.7 - 10.4 12/12/2015 [facility] HEMATOLOGY PTT 26.9 s 22.9 - 35.8 12/12/2015 [facility] HEMATOLOGY PT 12.5 s 12.0 - 14.7 12/12/2015 [facility] HEMATOLOGY INR 0.90 0.85 - 1.17 12/12/2015 [facility] HEMATOLOGY Basophils 0.5 % 0.0 - 1.0 12/12/2015 [facility] HEMATOLOGY Segs 44.0 % 45.0 - 75.0 12/12/2015 [facility] HEMATOLOGY Eosinophils 2.3 % 0.0 - 4.0 12/12/2015 [facility] HEMATOLOGY Lymphocytes 45.3 % 20.0 - 40.0 12/12/2015 [facility] HEMATOLOGY Monocytes 7.9 % 2.0 - 12.0 12/12/2015 [facility] HEMATOLOGY Segs-Bands # 2.7 K/CMM 1.5 - 8.1 12/12/2015 [facility] HEMATOLOGY Eosinophils # 0.1 K/CMM 0.0 - 0.5 12/12/2015 [facility] HEMATOLOGY Monocytes # 0.5 K/CMM 0.0 - 0.8 12/12/2015 [facility] HEMATOLOGY Lymphocytes # 2.8 K/CMM 1.0 - 5.5 12/12/2015 [facility] IMMUNOLOGY HIV 1/2 Ab Negative *NA* (12/12/15 5:18 PM) Negative 12/12/2015 [facility] URINE AND STOOL UA Nitrite Negative (12/12/15 5:18 PM) Negative 12/12/2015 [facility] URINE AND STOOL UA Leuk Est Negative (12/12/15 5:18 PM) Negative 12/12/2015 [facility] URINE AND STOOL UA Sq Epi Occasional /LPF Few /LPF 12/12/2015 [facility] URINE AND STOOL UA WBC null 0 - 5 12/12/2015 [facility] URINE AND STOOL UA RBC 1 /HPF 0 - 2 12/12/2015 [facility] URINE AND STOOL UA Blood Negative (12/12/15 5:18 PM) Negative 12/12/2015 [facility] URINE AND STOOL UA Bili Negative *NA* (12/12/15 5:18 PM) Negative 12/12/2015 [facility] URINE AND STOOL UA Urobilinogen <=1.0 mg/dL 0.1 - 1.0 12/12/2015 [facility] URINE AND STOOL UA Color Yellow *NA* (12/12/15 5:18 PM) Yellow 12/12/2015 [facility] URINE AND STOOL UA Turbidity Slight *ABN* (12/12/15 5:18 PM) Clear 12/12/2015 [facility] URINE AND STOOL UA Ketones Negative mg/dL Negative mg/dL 12/12/2015 [facility] URINE AND STOOL UA Glucose 500 mg/dL Negative mg/dL 12/12/2015 [facility] URINE AND STOOL UA Spec Grav 1.013 <=1.030 12/12/2015 [facility] URINE AND STOOL UA pH 7.0 5.0 - 8.0 12/12/2015 [facility] URINE AND STOOL UA Protein Negative mg/dL Negative mg/dL 12/12/2015 [facility] BLOOD BANK RESULTS RBC product Product available (12/12/15 4:22 PM) 12/12/2015 [facility] Knee 3 views DX Knee 3 views DX : 1955; Age: 60 years y/o Female MR: [id number] Study: Knee 3 views DX 12/12/2015 4:23 PM BROKERAGE CLERK Clinical Indication: Pain in limb; pre-op exam Comparison: None TECHNIQUE: 3 Views of the right knee FINDINGS: No fracture, malalignment, or other acute osseous abnormality is seen. Bones are osteopenic. Mild medial joint space narrowing is seen with osteophytes. Patellofemoral osteophytes are also identified. Vascular calcifications are seen.. IMPRESSION: No acute fracture or malalignment seen. Osteoarthritis, most significant in the medial compartment. SL: [id number] 12/12/2015 - - Read by: José Manuel Rosado MD Dictated Date/time: 12/13/15 07:47 Electronically Signed by: José Manuel Rosado MD 12/13/15 07:48 FINAL REPORT [facility] Bone length scanogram DX Bone length scanogram DX Bone length bilateral lower extremities: Standing AP views of the lower extremities were done. There are moderate degenerative changes in the right knee which are further described on the right knee radiographs on the same day. There is mild narrowing of the medial tibiofemoral compartment of the left knee. There appears to be a femoral length discrepancy, with a slightly longer right femur area The hips are not well evaluated due to underexposure. There are no other significant osseous, articular or soft tissue abnormalities. 13 12/12/2015 - - Read by: Iain Goff MD Dictated Date/time: 12/13/15 07:59 Electronically Signed by: Iain Goff MD 12/13/15 08:04 FINAL REPORT [facility] Bone length scanogram DX Bone length scanogram DX CLINICAL HISTORY: Preoperative radiographs for knee arthroplasty. Right femur and tib-fib AP views. Degenerative changes are prominent within the medial compartment of the knee. No other femoral or tib-fib fracture or lesion is appreciated. SL: 13 10/25/2015 - - Read by: Brendan Storm MD Dictated Date/time: 10/25/15 11:58 Electronically Signed by: Brendan Storm MD 10/25/15 11:59 FINAL REPORT [facility] Knee series 3 views DX Knee series 3 views DX CLINICAL HISTORY: Right knee pain. Preoperative radiographs prior to arthroplasty. Right knee 3 views. Advanced degenerative changes. Joint space narrowing and marginal osteophytes are present, particularly within the medial and anterior compartments. No fracture subluxation or acute abnormality is otherwise evident. SL: 13 10/25/2015 - - Read by: Brendan Storm MD Dictated Date/time: 10/25/15 11:57 Electronically Signed by: Brendan Storm MD 10/25/15 11:58 FINAL REPORT [facility] Breast US Breast US - DIGITAL MAMMO DX GUIRNDER MA - BREAST US/L BILATERAL DIGITAL DIAGNOSTIC MAMMOGRAM WITH CAD AND TARGETED LEFT ULTRASOUND: 09/25/2014 CLINICAL: 611.72: Palpable area of concern in the left breast x 1 month duration. Current study was evaluated with a Computer Aided Detection (CAD) system. Comparison is made to exams dated: 09/03/2010 mammogram, 09/18/2011 mammogram - [facility] and 06/21/2013 mammogram - [facility]. There are scattered fibroglandular densities in both breasts. Targeted ultrasound performed of the left breast 11:00 6cm from the nipple and 9:00 11cm from the nipple (patient reported this 2nd additional area when I ultrasounded her) demonstrates no sonographic correlate. Targeted ultrasound of the left axilla demonstrates no sonographically abnormal appearing lymph nodes. No significant masses, calcifications, or other findings are seen in either breast on the mammogram or targeted ultrasound. IMPRESSION: NEGATIVE, TARGETED ULTRASOUND NEGATIVE There is no mammographic or targeted sonographic evidence of malignancy. A screening mammogram in one year is recommended. SUMMARY: I notified the patient of the results and their significance at the completion of today's examination. She was instructed to return as soon as possible for repeat imaging should her clinical findings change. Also, note that a true palpable area of concern (distinct from other regions of either breast) warrants clinical attention despite a negative imaging evaluation. Dr. Yoana Santos D.O. ht/:09/25/2014 12:47:28 Adjunct Art History Instructor: Risa VALLES)(Desire), [facility] This exam was dictated and interpreted by [id number] for Kevin. letter sent: Normal exam Mammogram BI-RADS: 1 Negative Ultrasound BI-RADS: 1 Negative 09/25/2014 - - Read by: Yoana Santos DO Dictated Date/time: 09/25/14 12:47 Electronically Signed by: Yoana Santos DO 09/25/14 12:47 FINAL REPORT SELENE Mcelroy Digital Mammo DX Gurinder MA Digital Mammo DX Gurinder MA - DIGITAL MAMMO DX GURINDER MA - BREAST US/L BILATERAL DIGITAL DIAGNOSTIC MAMMOGRAM WITH CAD AND TARGETED LEFT ULTRASOUND: 09/25/2014 CLINICAL: 611.72: Palpable area of concern in the left breast x 1 month duration. Current study was evaluated with a Computer Aided Detection (CAD) system. Comparison is made to exams dated: 09/03/2010 mammogram, 09/18/2011 mammogram - [facility] and 06/21/2013 mammogram - [facility]. There are scattered fibroglandular densities in both breasts. Targeted ultrasound performed of the left breast 11:00 6cm from the nipple and 9:00 11cm from the nipple (patient reported this 2nd additional area when I ultrasounded her) demonstrates no sonographic correlate. Targeted ultrasound of the left axilla demonstrates no sonographically abnormal appearing lymph nodes. No significant masses, calcifications, or other findings are seen in either breast on the mammogram or targeted ultrasound. IMPRESSION: NEGATIVE, TARGETED ULTRASOUND NEGATIVE There is no mammographic or targeted sonographic evidence of malignancy. A screening mammogram in one year is recommended. SUMMARY: I notified the patient of the results and their significance at the completion of today's examination. She was instructed to return as soon as possible for repeat imaging should her clinical findings change. Also, note that a true palpable area of concern (distinct from other regions of either breast) warrants clinical attention despite a negative imaging evaluation. Dr. Yoana Santos D.O. ht/:09/25/2014 12:47:28 Adjunct Art History Instructor: Risa PATEL(R)(Desire), [facility] This exam was dictated and interpreted by [id number] for SELENE Mcelroy. letter sent: Normal exam Mammogram BI-RADS: 1 Negative Ultrasound BI-RADS: 1 Negative 09/25/2014 - - Read by: Yoana Santos DO Dictated Date/time: 09/25/14 12:47 Electronically Signed by: Yoana Santos DO 09/25/14 12:47 FINAL REPORT SELENE Mcelroy Brain/Neck CTA Brain/Neck CTA CTA Head \\T\\ Neck, Aug 16, 2014 10:44:36 AM CLINICAL HISTORY: Visual disturbances; cerebral atery occlusion TECHNIQUE: 0.625 mm thick axial images of the head and neck were obtained with IV contrast via arteriographic protocol. 2.5 mm axial reconstructions were created. Coronal and sagittal reformations of the intracranial and cervical arterial circulation were created. Three-dimensional MIP reconstructions of the [place] and of the cervical arterial circulation were created at an independent workstation. COMPARISON: Carotid Doppler ultrasound 07/29/2014 FINDINGS: CTA Head: Minimal calcified plaque is visualized in the bilateral ICA cavernous and supraclinoid segments, but without significant stenosis. [place] and its branches are patent from their respective origins to their distal territories, without thrombotic occlusion, dissection, or aneurysm. Vertebrobasilar system is patent, without thrombotic occlusion, dissection, or aneurysm. No significant atherosclerotic disease is visualized within the vertebrobasilar system. CTA Neck: Mild focal calcified plaque is visualized in the right carotid bulb, but without significant stenosis. Otherwise, no atherosclerotic disease is visualized in the remaining bilateral cervical carotid arterial system. Bilateral carotid arterial systems demonstrate no dissection. Vertebral arteries are patent without thrombotic occlusion, dissection, or aneurysm. Visualized aortic arch is unremarkable. Bilateral subclavian arteries are patent without any atherosclerotic disease. No abnormal mass or focal fluid collection is visualized in the neck. Pharyngeal soft tissues are unremarkable. No lymphadenopathy is present. Thyroid gland is present. Visualized lung apices are clear. Bones demonstrate lower cervical spine uncovertebral osteophytosis and degenerative disc disease. IMPRESSION: 1. CTA head: Unremarkable study. 2. CTA neck: Right carotid bulb mild calcified plaque, but without hemodynamically significant stenosis. NASCET criteria were utilized. SL: 14 08/16/2014 - - Read by: Luis Araujo MD Dictated Date/time: 08/16/14 11:31 Electronically Signed by: Luis Araujo MD 08/16/14 11:43 FINAL REPORT [facility] CHEM PANEL eGFR 83 mL/min/1.73m2 07/29/2014 1Result Comment: The eGFR is calculated using the CKD-EPI formula. In most young, healthy individuals the eGFR will be >90 mL/min/1.73m2. The eGFR declines with age. An eGFR of 60-89 may be normal in some populations, particularly the elderly, for whom the CKD-EPI formula has not been extensively validated. Use of the eGFR is not recommended in the following populations: Individuals with unstable creatinine concentrations, including patients and those with serious co-morbid conditions. Patients with extremes in muscle mass or diet. The data above are obtained from the National Kidney Disease Education Program (NKDEP) which additionally recommends that when the eGFR is used in patients with extremes of body mass index for purposes of drug dosing, the eGFR should be multiplied by the estimated BMI. [facility] CHEM PANEL CO2 30 meq/L 24 - 32 07/29/2014 [facility] CHEM PANEL Chloride Lvl 104 meq/L 95 - 109 07/29/2014 [facility] CHEM PANEL Sodium Lvl 140 meq/L 135 - 145 07/29/2014 [facility] CHEM PANEL Potassium Lvl 4.3 meq/L 3.5 - 5.1 07/29/2014 [facility] CHEM PANEL AGAP 10.3 meq/L 10.0 - 20.0 07/29/2014 [facility] CHEM PANEL Calcium Lvl 8.8 mg/dL 8.5 - 10.5 07/29/2014 [facility] CHEM PANEL Creatinine Lvl 0.8 mg/dL 0.5 - 1.4 07/29/2014 [facility] CHEM PANEL BUN 10 mg/dL 7 - 22 07/29/2014 [facility] CHEM PANEL Glucose Lvl 202 mg/dL 70 - 99 07/29/2014 3Interpretive Data: Adult reference range values reflect the clinical guidelines of the [place] [employer]. [facility] HEMATOLOGY Sed Rate 8 mm/h 0 - 20 07/29/2014 [facility] HEMATOLOGY MPV 6.9 fL 7.4 - 10.4 07/29/2014 [facility] HEMATOLOGY RDW 13.4 % 11.5 - 14.5 07/29/2014 [facility] HEMATOLOGY Platelet 240 K/CMM 133 - 450 07/29/2014 [facility] HEMATOLOGY Hct 37.6 % 36.0 - 48.0 07/29/2014 [facility] MCH 29.2 pg 27.0 - 31.0 07/29/2014 [facility] MCHC 33.3 g/dL 32.0 - 36.0 07/29/2014 [facility] MCV 87.7 fL 80.0 - 98.0 07/29/2014 [facility] HEMATOLOGY RBC 4.29 M/CMM 4.20 - 5.40 07/29/2014 [facility] HEMATOLOGY Hgb 12.5 g/dL 12.0 - 16.0 07/29/2014 [facility] HEMATOLOGY WBC 5.9 K/CMM 3.7 - 10.4 07/29/2014 [facility] HEMATOLOGY Monocytes 9.0 % 2.0 - 12.0 07/29/2014 [facility] HEMATOLOGY Eosinophils 2.0 % 0.0 - 4.0 07/29/2014 [facility] HEMATOLOGY Lymphocytes 54.2 % 20.0 - 40.0 07/29/2014 [facility] HEMATOLOGY Segs-Bands # 2.0 K/CMM 1.5 - 8.1 07/29/2014 [facility] HEMATOLOGY Basophils 0.4 % 0.0 - 1.0 07/29/2014 [facility] HEMATOLOGY Segs 34.4 % 45.0 - 75.0 07/29/2014 [facility] HEMATOLOGY Lymphocytes # 3.2 K/CMM 1.0 - 5.5 07/29/2014 [facility] HEMATOLOGY Monocytes # 0.5 K/CMM 0.0 - 0.8 07/29/2014 [facility] HEMATOLOGY Eosinophils # 0.1 K/CMM 0.0 - 0.5 07/29/2014 [facility] LIPIDS VLDL 22 07/29/2014 [facility] LIPIDS LDL (Calculated) 48 mg/dL <=99 mg/dL 07/29/2014 [facility] LIPIDS Trig 108 mg/dL <=149 mg/dL 07/29/2014 [facility] LIPIDS Chol 161 mg/dL <=199 mg/dL 07/29/2014 [facility] LIPIDS HDL 91 mg/dL >=61 mg/dL 07/29/2014 [facility] LIPIDS CHD Risk 1.77 3.90 - 5.80 07/29/2014 [facility] URINE AND STOOL UA Urobilinogen <=1.0 mg/dL 0.1 - 1.0 07/29/2014 [facility] URINE AND STOOL UA Color Ltyellow 07/29/2014 [facility] URINE AND STOOL UA Sq Epi None Seen 07/29/2014 [facility] URINE AND STOOL UA Nitrite Negative (07/28/14 11:50 PM) Negative 07/29/2014 [facility] URINE AND STOOL UA Leuk Est Negative (07/28/14 11:50 PM) Negative 07/29/2014 [facility] URINE AND STOOL UA WBC 1 /HPF 0 - 5 07/29/2014 [facility] URINE AND STOOL UA RBC null 0 - 2 07/29/2014 [facility] URINE AND STOOL UA Turbidity Clear (07/28/14 11:50 PM) Clear 07/29/2014 [facility] URINE AND STOOL UA Spec Grav 1.023 <=1.030 07/29/2014 [facility] URINE AND STOOL UA pH 7.0 5.0 - 8.0 07/29/2014 [facility] URINE AND STOOL UA Protein Negative mg/dL Negative mg/dL 07/29/2014 [facility] URINE AND STOOL UA Glucose 500 mg/dL Negative mg/dL 07/29/2014 [facility] URINE AND STOOL UA Ketones Negative mg/dL Negative mg/dL 07/29/2014 [facility] URINE AND STOOL UA Bili Negative *NA* (07/28/14 11:50 PM) Negative 07/29/2014 [facility] URINE AND STOOL UA Blood Negative (07/28/14 11:50 PM) Negative 07/29/2014 [facility] Carotid artery Doppler bilat US Carotid artery Doppler bilat US Exam: Carotid Doppler. History: Visual disturbances Technique: Grayscale, color Doppler, and spectral wave form analysis was performed of the carotid and vertebral arteries. Findings: Right: Mild atherosclerotic disease in the right carotid bulb is seen. Right ICA-PSV 81 cm/s Right CCA-PSV 102 cm/s Right vertebral artery PSV 48 cm/s with antegrade flow Right ICA/CCA PSV ratio: 0.8 Left: No significant atherosclerotic disease is seen. Left ICA-PSV 90 cm/s Left CCA-PSV 63 cm/s Left vertebral artery PSV 52 cm/s with antegrade flow Left ICA/CCA PSV ratio: 1.4 Impression: 1. Negative for carotid stenosis. NOTE: Any reference to stenosis is made using 2002 Society or Radiologists in Ultrasound Consensus Panel Criteria. SL: 16 07/29/2014 - - Read by: Kyaw Saavedra MD Dictated Date/time: 07/29/14 08:44 Electronically Signed by: Kyaw Saavedra MD 07/29/14 08:45 FINAL REPORT [facility] CARDIAC ENZYMES CK MB Index 1.8 0.0 - 2.5 07/28/2014 [facility] CARDIAC ENZYMES Troponin-I null 0.00 - 0.40 07/28/2014 [facility] CARDIAC ENZYMES CK MB 5.0 ng/mL 0.5 - 3.6 07/28/2014 [facility] CARDIAC ENZYMES Total CK 281 unit/L 12 - 191 07/28/2014 [facility] CHEM PANEL eGFR 97 mL/min/1.73m2 07/28/2014 2Result Comment: The eGFR is calculated using the CKD-EPI formula. In most young, healthy individuals the eGFR will be >90 mL/min/1.73m2. The eGFR declines with age. An eGFR of 60-89 may be normal in some populations, particularly the elderly, for whom the CKD-EPI formula has not been extensively validated. Use of the eGFR is not recommended in the following populations: Individuals with unstable creatinine concentrations, including patients and those with serious co-morbid conditions. Patients with extremes in muscle mass or diet. The data above are obtained from the National Kidney Disease Education Program (NKDEP) which additionally recommends that when the eGFR is used in patients with extremes of body mass index for purposes of drug dosing, the eGFR should be multiplied by the estimated BMI. [facility] CHEM PANEL Creatinine Lvl 0.7 mg/dL 0.5 - 1.4 07/28/2014 [facility] CHEM PANEL BUN 8 mg/dL 7 - 22 07/28/2014 [facility] CHEM PANEL Glucose Lvl 56 mg/dL 70 - 99 07/28/2014 4Interpretive Data: Adult reference range values reflect the clinical guidelines of the [place] [employer]. [facility] CHEM PANEL CO2 31 meq/L 24 - 32 07/28/2014 [facility] CHEM PANEL Albumin Lvl 3.7 g/dL 3.5 - 5.0 07/28/2014 [facility] CHEM PANEL Calcium Lvl 9.1 mg/dL 8.5 - 10.5 07/28/2014 [facility] CHEM PANEL Total Protein 7.4 g/dL 6.4 - 8.4 07/28/2014 [facility] CHEM PANEL ALT 46 unit/L 0 - 65 07/28/2014 [facility] CHEM PANEL Sodium Lvl 139 meq/L 135 - 145 07/28/2014 [facility] CHEM PANEL Potassium Lvl 3.8 meq/L 3.5 - 5.1 07/28/2014 [facility] CHEM PANEL Chloride Lvl 102 meq/L 95 - 109 07/28/2014 [facility] CHEM PANEL AST 33 unit/L 0 - 37 07/28/2014 [facility] CHEM PANEL A/G Ratio 1.0 0.7 - 1.6 07/28/2014 [facility] CHEM PANEL B/C Ratio 11 6 - 25 07/28/2014 [facility] CHEM PANEL Bili Total 0.3 mg/dL 0.2 - 1.3 07/28/2014 [facility] CHEM PANEL AGAP 9.8 meq/L 10.0 - 20.0 07/28/2014 [facility] CHEM PANEL Alk Phos 128 unit/L 39 - 136 07/28/2014 [facility] CHEM PANEL Globulin 3.7 g/dL 2.0 - 4.0 07/28/2014 [facility] HEMATOLOGY Segs 29.4 % 45.0 - 75.0 07/28/2014 [facility] HEMATOLOGY Basophils 0.6 % 0.0 - 1.0 07/28/2014 [facility] HEMATOLOGY Segs-Bands # 2.0 K/CMM 1.5 - 8.1 07/28/2014 [facility] HEMATOLOGY Lymphocytes # 4.0 K/CMM 1.0 - 5.5 07/28/2014 [facility] HEMATOLOGY Monocytes 9.8 % 2.0 - 12.0 07/28/2014 [facility] HEMATOLOGY Eosinophils 1.9 % 0.0 - 4.0 07/28/2014 [facility] HEMATOLOGY Lymphocytes 58.3 % 20.0 - 40.0 07/28/2014 [facility] HEMATOLOGY Eosinophils # 0.1 K/CMM 0.0 - 0.5 07/28/2014 [facility] Monocytes # 0.7 K/CMM 0.0 - 0.8 07/28/2014 [facility] PT 11.7 s 12.0 - 14.7 07/28/2014 [facility] INR 0.86 0.85 - 1.17 07/28/2014 5Interpretive Data: RECOMMENDED RANGES FOR PROTIME INR: 2.0-3.0 for most medical and surgical thromboembolic states. 2.5-3.5 for artificial heart valves and recurrent embolism. INR SHOULD BE USED ONLY FOR PATIENTS ON STABLE ANTICOAGULANT THERAPY. [facility] PTT 27.0 s 22.9 - 35.8 07/28/2014 6Interpretive Data: Heparin Therapeutic Range: 57 - 92 Seconds [facility] RDW 13.0 % 11.5 - 14.5 07/28/2014 [facility] MPV 6.7 fL 7.4 - 10.4 07/28/2014 [facility] Platelet 283 K/CMM 133 - 450 07/28/2014 [facility] MCH 28.9 pg 27.0 - 31.0 07/28/2014 [facility] MCHC 33.3 g/dL 32.0 - 36.0 07/28/2014 [facility] RBC 4.85 M/CMM 4.20 - 5.40 07/28/2014 [facility] Hgb 14.0 g/dL 12.0 - 16.0 07/28/2014 [facility] WBC 6.9 K/CMM 3.7 - 10.4 07/28/2014 [facility] Hct 42.1 % 36.0 - 48.0 07/28/2014 [facility] MCV 86.8 fL 80.0 - 98.0 07/28/2014 [facility] Brain wo contrast MRI Brain wo contrast MRI MRI BRAIN HISTORY: Weakness FINDINGS: Sagittal T1-weighted images revealed normal appearance of the cerebellar tonsils and pituitary gland. There is no evidence of intracranial mass or shift in midline structures. Axial FLAIR images show moderately severe bilateral periventricular and subcortical white matter changes consistent with chronic small vessel ischemic disease.. Axial gradient images reveal no evidence of prior hemorrhage. Axial diffusion weighted images reveal no recent infarct. Axial T2 images show normal flow-voids in the major vascular structures. There is prominence of ventricles and sulci in a fashion consistent with generalized cerebral atrophy. The paranasal sinuses and mastoid air cells are clear. IMPRESSION: 1. Moderately severe chronic small vessel ischemic white matter changes bilaterally. 2. Mild cerebral atrophy. 3. No acute abnormality identified. SL: 12 07/28/2014 - - Read by: Rajesh Cid MD Dictated Date/time: 07/28/14 20:24 Electronically Signed by: Rajesh Cid MD 07/28/14 20:26 FINAL REPORT [facility] Chest 1view Chest 1view Examination: Chest x-ray, single view History: Dizziness Comparison: 07/17/2014 Findings: The lungs are clear and without focal consolidation. The cardiomediastinal silhouette is within normal limits. No pleural effusion or pneumothorax is seen. The osseous structures are without focal abnormality. IMPRESSION: No acute cardiopulmonary disease. SL: 16 07/28/2014 - - Read by: Kyaw Saavedra MD Dictated Date/time: 07/28/14 18:11 Electronically Signed by: Kyaw Saavedra MD 07/28/14 18:11 FINAL REPORT [facility] Brain Stroke wo contrast CT Brain Stroke wo contrast CT Examination: CT scan of the brain without contrast. HISTORY: Confusion COMPARISON: 07/17/2014 DLP: 593.63 TECHNIQUE: Multiple axial CT images of the brain were obtained without the administration of intravenous contrast. FINDINGS: Mild chronic macrovascular ischemic changes are again noted. Remote lacunar infarct in the right basal ganglia is again seen. No acute intracranial hemorrhage, mass effect, midline shift, or hydrocephalus is seen. There are no extra-axial fluid collections. The visualized paranasal sinuses and mastoid air cells are well-aerated. The optic globes and retrobulbar soft tissues are unremarkable. IMPRESSION: No acute intracranial abnormality. Dr. Sanon was notified on 07/28/2014 at 5:23 p.m. SL: 16 07/28/2014 - - Read by: Kyaw Saavedra MD Dictated Date/time: 07/28/14 17:19 Electronically Signed by: Kyaw Saavedra MD 07/28/14 17:23 FINAL REPORT [facility] CHEM PANEL eGFR 83 mL/min/1.73m2 07/18/2014 1Result Comment: The eGFR is calculated using the CKD-EPI formula. In most young, healthy individuals the eGFR will be >90 mL/min/1.73m2. The eGFR declines with age. An eGFR of 60-89 may be normal in some populations, particularly the elderly, for whom the CKD-EPI formula has not been extensively validated. Use of the eGFR is not recommended in the following populations: Individuals with unstable creatinine concentrations, including patients and those with serious co-morbid conditions. Patients with extremes in muscle mass or diet. The data above are obtained from the National Kidney Disease Education Program (NKDEP) which additionally recommends that when the eGFR is used in patients with extremes of body mass index for purposes of drug dosing, the eGFR should be multiplied by the estimated BMI. [facility] CHEM PANEL Chloride Lvl 103 meq/L 95 - 109 07/18/2014 [facility] CHEM PANEL CO2 28 meq/L 24 - 32 07/18/2014 [facility] CHEM PANEL AGAP 11.4 meq/L 10.0 - 20.0 07/18/2014 [facility] CHEM PANEL Potassium Lvl 4.4 meq/L 3.5 - 5.1 07/18/2014 [facility] CHEM PANEL Creatinine Lvl 0.8 mg/dL 0.5 - 1.4 07/18/2014 [facility] CHEM PANEL Sodium Lvl 138 meq/L 135 - 145 07/18/2014 [facility] CHEM PANEL BUN 12 mg/dL 7 - 22 07/18/2014 [facility] CHEM PANEL Glucose Lvl 228 mg/dL 70 - 99 07/18/2014 3Interpretive Data: Adult reference range values reflect the clinical guidelines of the [place] [employer]. [facility] CHEM PANEL Bili Total 0.6 mg/dL 0.2 - 1.3 07/18/2014 [facility] CHEM PANEL Alk Phos 103 unit/L 39 - 136 07/18/2014 [facility] CHEM PANEL ALT 40 unit/L 0 - 65 07/18/2014 [facility] CHEM PANEL AST 28 unit/L 0 - 37 07/18/2014 [facility] CHEM PANEL A/G Ratio 1.1 0.7 - 1.6 07/18/2014 [facility] CHEM PANEL Globulin 2.9 g/dL 2.0 - 4.0 07/18/2014 [facility] CHEM PANEL Albumin Lvl 3.3 g/dL 3.5 - 5.0 07/18/2014 [facility] CHEM PANEL Total Protein 6.2 g/dL 6.4 - 8.4 07/18/2014 [facility] CHEM PANEL Calcium Lvl 9.2 mg/dL 8.5 - 10.5 07/18/2014 [facility] CHEM PANEL B/C Ratio 15 6 - 25 07/18/2014 [facility] HEMATOLOGY Hct 40.9 % 36.0 - 48.0 07/18/2014 [facility] HEMATOLOGY Hgb 14.2 g/dL 12.0 - 16.0 07/18/2014 [facility] HEMATOLOGY MCH 30.4 pg 27.0 - 31.0 07/18/2014 [facility] HEMATOLOGY MCV 87.5 fL 80.0 - 98.0 07/18/2014 [facility] HEMATOLOGY RBC 4.67 M/CMM 4.20 - 5.40 07/18/2014 [facility] HEMATOLOGY WBC 7.0 K/CMM 3.7 - 10.4 07/18/2014 [facility] HEMATOLOGY MPV 6.5 fL 7.4 - 10.4 07/18/2014 [facility] HEMATOLOGY Platelet 269 K/CMM 133 - 450 07/18/2014 [facility] HEMATOLOGY RDW 13.1 % 11.5 - 14.5 07/18/2014 [facility] MCHC 34.8 g/dL 32.0 - 36.0 07/18/2014 [facility] HEMATOLOGY Basophils # 0.1 K/CMM 0.0 - 0.2 07/18/2014 [facility] HEMATOLOGY Eosinophils # 0.1 K/CMM 0.0 - 0.5 07/18/2014 [facility] HEMATOLOGY Monocytes # 0.7 K/CMM 0.0 - 0.8 07/18/2014 [facility] HEMATOLOGY Lymphocytes # 3.1 K/CMM 1.0 - 5.5 07/18/2014 [facility] HEMATOLOGY Segs-Bands # 3.0 K/CMM 1.5 - 8.1 07/18/2014 [facility] HEMATOLOGY Eosinophils 2.0 % 0.0 - 4.0 07/18/2014 [facility] HEMATOLOGY Basophils 0.7 % 0.0 - 1.0 07/18/2014 [facility] HEMATOLOGY Monocytes 10.0 % 2.0 - 12.0 07/18/2014 [facility] HEMATOLOGY Segs 43.4 % 45.0 - 75.0 07/18/2014 [facility] HEMATOLOGY Lymphocytes 43.9 % 20.0 - 40.0 07/18/2014 [facility] LIPIDS VLDL 23 07/18/2014 [facility] LIPIDS LDL (Calculated) 64 mg/dL <=99 mg/dL 07/18/2014 [facility] LIPIDS HDL 95 mg/dL >=61 mg/dL 07/18/2014 [facility] LIPIDS Trig 113 mg/dL <=149 mg/dL 07/18/2014 [facility] LIPIDS Chol 182 mg/dL <=199 mg/dL 07/18/2014 [facility] LIPIDS CHD Risk 1.92 3.90 - 5.80 07/18/2014 [facility] URINE AND STOOL UA Color Ltyellow 07/17/2014 [facility] URINE AND STOOL UA Urobilinogen <=1.0 mg/dL 0.1 - 1.0 07/17/2014 [facility] URINE AND STOOL UA Trans Epi 3 /LPF <=0 /LPF 07/17/2014 [facility] URINE AND STOOL UA Nitrite Negative (07/17/14 5:51 PM) Negative 07/17/2014 [facility] URINE AND STOOL UA Blood Negative (07/17/14 5:51 PM) Negative 07/17/2014 [facility] URINE AND STOOL UA WBC 3 /HPF 0 - 5 07/17/2014 [facility] URINE AND STOOL UA Sq Epi Occasional /LPF Few /LPF 07/17/2014 [facility] URINE AND STOOL UA Leuk Est Small *ABN* (07/17/14 5:51 PM) Negative 07/17/2014 [facility] URINE AND STOOL UA Bili Negative *NA* (07/17/14 5:51 PM) Negative 07/17/2014 [facility] URINE AND STOOL UA Ketones Negative mg/dL Negative mg/dL 07/17/2014 [facility] URINE AND STOOL UA Glucose 150 mg/dL Negative mg/dL 07/17/2014 [facility] URINE AND STOOL UA Protein Negative mg/dL Negative mg/dL 07/17/2014 [facility] URINE AND STOOL UA pH 7.0 5.0 - 8.0 07/17/2014 [facility] URINE AND STOOL UA Turbidity Clear (07/17/14 5:51 PM) Clear 07/17/2014 [facility] URINE AND STOOL UA Spec Grav 1.010 <=1.030 07/17/2014 [facility] CARDIAC ENZYMES Troponin-I null 0.00 - 0.40 07/17/2014 [facility] CARDIAC ENZYMES CK MB 5.2 ng/mL 0.5 - 3.6 07/17/2014 [facility] CARDIAC ENZYMES Total CK 301 unit/L 12 - 191 07/17/2014 [facility] CARDIAC ENZYMES CK MB Index 1.7 0.0 - 2.5 07/17/2014 [facility] CHEM PANEL Magnesium Lvl 2.3 mg/dL 1.8 - 2.4 07/17/2014 [facility] CHEM PANEL eGFR 83 mL/min/1.73m2 07/17/2014 2Result Comment: The eGFR is calculated using the CKD-EPI formula. In most young, healthy individuals the eGFR will be >90 mL/min/1.73m2. The eGFR declines with age. An eGFR of 60-89 may be normal in some populations, particularly the elderly, for whom the CKD-EPI formula has not been extensively validated. Use of the eGFR is not recommended in the following populations: Individuals with unstable creatinine concentrations, including patients and those with serious co-morbid conditions. Patients with extremes in muscle mass or diet. The data above are obtained from the National Kidney Disease Education Program (NKDEP) which additionally recommends that when the eGFR is used in patients with extremes of body mass index for purposes of drug dosing, the eGFR should be multiplied by the estimated BMI. [facility] CHEM PANEL Creatinine Lvl 0.8 mg/dL 0.5 - 1.4 07/17/2014 [facility] CHEM PANEL BUN 13 mg/dL 7 - 22 07/17/2014 [facility] CHEM PANEL Potassium Lvl 4.0 meq/L 3.5 - 5.1 07/17/2014 [facility] CHEM PANEL Sodium Lvl 136 meq/L 135 - 145 07/17/2014 [facility] CHEM PANEL Glucose Lvl 95 mg/dL 70 - 99 07/17/2014 4Interpretive Data: Adult reference range values reflect the clinical guidelines of the [place] [employer]. [facility] CHEM PANEL AST 36 unit/L 0 - 37 07/17/2014 [facility] CHEM PANEL ALT 47 unit/L 0 - 65 07/17/2014 [facility] CHEM PANEL Albumin Lvl 4.1 g/dL 3.5 - 5.0 07/17/2014 [facility] CHEM PANEL Calcium Lvl 9.4 mg/dL 8.5 - 10.5 07/17/2014 [facility] CHEM PANEL CO2 31 meq/L 24 - 32 07/17/2014 [facility] CHEM PANEL Chloride Lvl 99 meq/L 95 - 109 07/17/2014 [facility] CHEM PANEL Alk Phos 128 unit/L 39 - 136 07/17/2014 [facility] CHEM PANEL Bili Total 0.3 mg/dL 0.2 - 1.3 07/17/2014 [facility] CHEM PANEL Total Protein 8.0 g/dL 6.4 - 8.4 07/17/2014 [facility] CHEM PANEL A/G Ratio 1.1 0.7 - 1.6 07/17/2014 [facility] CHEM PANEL B/C Ratio 16 6 - 25 07/17/2014 [facility] CHEM PANEL AGAP 10.0 meq/L 10.0 - 20.0 07/17/2014 [facility] CHEM PANEL Globulin 3.9 g/dL 2.0 - 4.0 07/17/2014 [facility] HEMATOLOGY WBC 6.7 K/CMM 3.7 - 10.4 07/17/2014 [facility] HEMATOLOGY Hgb 14.5 g/dL 12.0 - 16.0 07/17/2014 [facility] HEMATOLOGY RBC 4.96 M/CMM 4.20 - 5.40 07/17/2014 [facility] HEMATOLOGY Hct 43.2 % 36.0 - 48.0 07/17/2014 [facility] MCHC 33.7 g/dL 32.0 - 36.0 07/17/2014 [facility] MCH 29.3 pg 27.0 - 31.0 07/17/2014 [facility] HEMATOLOGY MCV 87.1 fL 80.0 - 98.0 07/17/2014 [facility] HEMATOLOGY RDW 13.0 % 11.5 - 14.5 07/17/2014 [facility] Platelet 315 K/CMM 133 - 450 07/17/2014 [facility] MPV 6.7 fL 7.4 - 10.4 07/17/2014 [facility] Segs 34.3 % 45.0 - 75.0 07/17/2014 [facility] Lymphocytes 54.6 % 20.0 - 40.0 07/17/2014 [facility] HEMATOLOGY Monocytes 8.4 % 2.0 - 12.0 07/17/2014 [facility] HEMATOLOGY Basophils 0.7 % 0.0 - 1.0 07/17/2014 [facility] HEMATOLOGY Eosinophils 2.0 % 0.0 - 4.0 07/17/2014 [facility] HEMATOLOGY Lymphocytes # 3.7 K/CMM 1.0 - 5.5 07/17/2014 [facility] HEMATOLOGY Segs-Bands # 2.3 K/CMM 1.5 - 8.1 07/17/2014 [facility] HEMATOLOGY Monocytes # 0.6 K/CMM 0.0 - 0.8 07/17/2014 [facility] HEMATOLOGY Eosinophils # 0.1 K/CMM 0.0 - 0.5 07/17/2014 [facility] Chest 1view Chest 1view CXR, portable (1 view) HISTORY: Chest pain Comparison is made to 11/26/2011. A study of 05/11/2011 was also reviewed. FINDINGS: The lungs are clear. There are no pleural effusions. The heart and pulmonary vasculature are within normal limits. The regional skeleton is unremarkable. CONCLUSION: 1. No active disease. Coding: Chest 1view CPT code: 03378 SL: 16 Panchito Van M.D. 07/17/2014 - - Read by: Panchito Van MD Dictated Date/time: 07/17/14 16:39 Electronically Signed by: Panchito Van MD 07/17/14 16:39 FINAL REPORT [facility] CHEM PANEL eGFR 83 mL/min/1.73m2 06/06/2014 1Result Comment: The eGFR is calculated using the CKD-EPI formula. In most young, healthy individuals the eGFR will be >90 mL/min/1.73m2. The eGFR declines with age. An eGFR of 60-89 may be normal in some populations, particularly the elderly, for whom the CKD-EPI formula has not been extensively validated. Use of the eGFR is not recommended in the following populations: Individuals with unstable creatinine concentrations, including patients and those with serious co-morbid conditions. Patients with extremes in muscle mass or diet. The data above are obtained from the National Kidney Disease Education Program (NKDEP) which additionally recommends that when the eGFR is used in patients with extremes of body mass index for purposes of drug dosing, the eGFR should be multiplied by the estimated BMI. [facility] CHEM PANEL ALT 47 unit/L 0 - 65 06/06/2014 [facility] CHEM PANEL Albumin Lvl 4.0 g/dL 3.5 - 5.0 06/06/2014 [facility] CHEM PANEL AST 32 unit/L 0 - 37 06/06/2014 [facility] CHEM PANEL Total Protein 7.5 g/dL 6.4 - 8.4 06/06/2014 [facility] CHEM PANEL Chloride Lvl 101 meq/L 95 - 109 06/06/2014 [facility] CHEM PANEL CO2 33 meq/L 24 - 32 06/06/2014 [facility] CHEM PANEL Calcium Lvl 9.9 mg/dL 8.5 - 10.5 06/06/2014 [facility] CHEM PANEL Alk Phos 127 unit/L 39 - 136 06/06/2014 [facility] CHEM PANEL Bili Total 0.6 mg/dL 0.2 - 1.3 06/06/2014 [facility] CHEM PANEL Glucose Lvl 123 mg/dL 70 - 99 06/06/2014 2Interpretive Data: Adult reference range values reflect the clinical guidelines of the [place] [employer]. [facility] CHEM PANEL BUN 13 mg/dL 7 - 22 06/06/2014 [facility] CHEM PANEL Creatinine Lvl 0.8 mg/dL 0.5 - 1.4 06/06/2014 [facility] CHEM PANEL Sodium Lvl 140 meq/L 135 - 145 06/06/2014 [facility] CHEM PANEL Potassium Lvl 4.0 meq/L 3.5 - 5.1 06/06/2014 [facility] CHEM PANEL B/C Ratio 16 6 - 25 06/06/2014 [facility] CHEM PANEL A/G Ratio 1.1 0.7 - 1.6 06/06/2014 [facility] CHEM PANEL AGAP 10.0 meq/L 10.0 - 20.0 06/06/2014 [facility] CHEM PANEL Globulin 3.5 g/dL 2.0 - 4.0 06/06/2014 [facility] CHEM PANEL Vitamin D, 25-OH, Total 65 ng/mL 30 - 100 06/06/2014 3Interpretive Data: Reference range is based on recommendations in the Endocrine Society Clinical Practice Guideline (J Clin Endocrinol Metab 2011;96:5702-0143) [facility] HEMATOLOGY Monocytes # 0.5 K/CMM 0.0 - 0.8 06/06/2014 [facility] HEMATOLOGY Eosinophils # 0.1 K/CMM 0.0 - 0.5 06/06/2014 [facility] HEMATOLOGY Lymphocytes 51.3 % 20.0 - 40.0 06/06/2014 [facility] HEMATOLOGY Segs 36.5 % 45.0 - 75.0 06/06/2014 [facility] HEMATOLOGY Monocytes 9.0 % 2.0 - 12.0 06/06/2014 [facility] HEMATOLOGY Eosinophils 2.6 % 0.0 - 4.0 06/06/2014 [facility] HEMATOLOGY Basophils 0.6 % 0.0 - 1.0 06/06/2014 [facility] HEMATOLOGY Segs-Bands # 2.0 K/CMM 1.5 - 8.1 06/06/2014 [facility] HEMATOLOGY Lymphocytes # 2.8 K/CMM 1.0 - 5.5 06/06/2014 [facility] HEMATOLOGY RBC 4.80 M/CMM 4.20 - 5.40 06/06/2014 [facility] HEMATOLOGY WBC 5.4 K/CMM 3.7 - 10.4 06/06/2014 [facility] HEMATOLOGY Hgb 14.4 g/dL 12.0 - 16.0 06/06/2014 [facility] HEMATOLOGY Platelet 285 K/CMM 133 - 450 06/06/2014 [facility] HEMATOLOGY MPV 6.8 fL 7.4 - 10.4 06/06/2014 [facility] HEMATOLOGY Hct 42.4 % 36.0 - 48.0 06/06/2014 [facility] HEMATOLOGY MCH 30.0 pg 27.0 - 31.0 06/06/2014 [facility] HEMATOLOGY MCV 88.3 fL 80.0 - 98.0 06/06/2014 [facility] MCHC 34.0 g/dL 32.0 - 36.0 06/06/2014 [facility] HEMATOLOGY RDW 13.1 % 11.5 - 14.5 06/06/2014 [facility] LIPIDS VLDL 16 06/06/2014 [facility] LIPIDS LDL (Calculated) 73 mg/dL <=99 mg/dL 06/06/2014 [facility] LIPIDS HDL 111 mg/dL >=61 mg/dL 06/06/2014 [facility] LIPIDS Trig 78 mg/dL <=149 mg/dL 06/06/2014 [facility] LIPIDS Chol 200 mg/dL <=199 mg/dL 06/06/2014 [facility] LIPIDS CHD Risk 1.80 3.90 - 5.80 06/06/2014 [facility] THYROID PANEL TSH 0.013 uIU/mL 0.360 - 3.740 06/06/2014 [facility] THYROID PANEL T4 Free 1.81 ng/dL 0.76 - 1.46 06/06/2014 [facility] URINE CHEM U Creatinine 113.8 mg/dL 06/06/2014 4Interpretive Data: No established reference ranges. [facility] URINE CHEM U Microalb 18.7 mg/L 06/06/2014 [facility] URINE CHEM U Alb/Crea 16.4 mcg/mg creat <=30.0 mcg/mg creat 06/06/2014 [facility] CHEMISTRY A/G Ratio 1.0 0.7 - 1.6 02/03/2012 Normal [facility] CHEMISTRY Albumin Lvl 3.5 g/dL 3.5 - 5.0 02/03/2012 Normal [facility] CHEMISTRY Globulin 3.5 g/dL 2.0 - 4.0 02/03/2012 Normal [facility] CHEMISTRY Total Protein 7.0 g/dL 6.4 - 8.4 02/03/2012 Normal [facility] CHEMISTRY ALT 43 U/L 0 - 65 02/03/2012 Normal [facility] CHEMISTRY AST 26 U/L 0 - 37 02/03/2012 Normal [facility] CHEMISTRY Alk Phos 98 U/L 39 - 136 02/03/2012 Normal [facility] CHEMISTRY Bili Indirect 0.1 mg/dL 0.0 - 1.0 02/03/2012 Normal [facility] CHEMISTRY Bili Total 0.2 mg/dL 0.2 - 1.3 02/03/2012 Normal [facility] CHEMISTRY Bili Direct 0.1 mg/dL 0.0 - 0.3 02/03/2012 Normal [facility] CHEMISTRY AGAP 15.0 meq/L 10.0 - 20.0 02/03/2012 Normal [facility] CHEMISTRY Glucose Lvl 358 mg/dL 70 - 99 02/03/2012 [facility] 1Interpretive Data: Adult reference range values reflect the clinical guidelinesof the [place] [employer]. [facility] CHEMISTRY Chloride Lvl 100 meq/L 95 - 109 02/03/2012 Normal [facility] CHEMISTRY Potassium Lvl 5.0 meq/L 3.5 - 5.1 02/03/2012 Normal [facility] CHEMISTRY Sodium Lvl 137 meq/L 135 - 145 02/03/2012 Normal [facility] CHEMISTRY Creatinine Lvl 0.9 mg/dL 0.5 - 1.4 02/03/2012 Normal [facility] CHEMISTRY BUN 19 mg/dL 7 - 22 02/03/2012 Normal [facility] CHEMISTRY Calcium Lvl 8.4 mg/dL 8.5 - 10.5 02/03/2012 LOW [facility] CHEMISTRY CO2 27 meq/L 24 - 32 02/03/2012 Normal [facility] HEMATOLOGY INR 0.90 0.85 - 1.17 02/03/2012 Normal 2Interpretive Data: RECOMMENDED RANGES FOR PROTIME INR: 2.0-3.0 for most medical and surgical thromboembolic states. 2.5-3.5 for artificial heart valves and recurrent embolism.INR SHOULD BE USED ONLY FOR PATIENTS ON STABLE ANTICOAGULANT THERAPY. [facility] HEMATOLOGY PTT 26.9 s 22.9 - 35.8 02/03/2012 Normal 3Interpretive Data: Heparin Therapeutic Range: 57 - 92 Seconds [facility] HEMATOLOGY PT 12.2 s 12.0 - 14.7 02/03/2012 Normal [facility] HEMATOLOGY Bleeding Time 6.0 min 2.0 - 9.0 02/03/2012 Normal [facility] HEMATOLOGY MPV 6.6 fL 7.4 - 10.4 02/03/2012 LOW [facility] HEMATOLOGY RBC 3.97 M/CMM 4.20 - 5.40 02/03/2012 LOW [facility] HEMATOLOGY MCH 29.9 pg 27.0 - 31.0 02/03/2012 Normal [facility] HEMATOLOGY RDW 13.2 % 11.5 - 14.5 02/03/2012 Normal [facility] HEMATOLOGY MCHC 33.2 g/dL 32.0 - 36.0 02/03/2012 Normal [facility] HEMATOLOGY Platelet 316 K/CMM 133 - 450 02/03/2012 Normal [facility] HEMATOLOGY WBC 5.9 K/CMM 3.7 - 10.4 02/03/2012 Normal [facility] HEMATOLOGY Hgb 11.9 g/dL 12.0 - 16.0 02/03/2012 LOW [facility] HEMATOLOGY MCV 90.2 fL 81.0 - 99.0 02/03/2012 Normal [facility] HEMATOLOGY Hct 35.8 % 36.0 - 48.0 02/03/2012 LOW [facility] HEMATOLOGY Monocytes # 0.4 K/CMM 0.0 - 0.8 02/03/2012 Normal [facility] HEMATOLOGY Lymphocytes # 2.6 K/CMM 1.0 - 5.5 02/03/2012 Normal [facility] HEMATOLOGY Eosinophils # 0.1 K/CMM 0.0 - 0.5 02/03/2012 Normal [facility] HEMATOLOGY Segs-Bands # 2.8 K/CMM 1.5 - 8.1 02/03/2012 Normal [facility] HEMATOLOGY Basophils # 0.0 K/CMM 0.0 - 0.2 02/03/2012 Normal [facility] HEMATOLOGY Segs 47.5 % 45.0 - 75.0 02/03/2012 Normal [facility] HEMATOLOGY Monocytes 7.0 % 2.0 - 12.0 02/03/2012 Normal [facility] HEMATOLOGY Lymphocytes 43.8 % 20.0 - 40.0 02/03/2012 [facility] HEMATOLOGY Basophils 0.4 % 0.0 - 1.0 02/03/2012 Normal [facility] HEMATOLOGY Eosinophils 1.3 % 0.0 - 4.0 02/03/2012 Normal [facility] Microbiology Culture: Urine 11/26/2011 [facility] BEDSIDE GLUCOSE TESTING Comment1 Notify RN/ 11/26/2011 NA [facility] BEDSIDE GLUCOSE TESTING Gluc POC Lifscn 327 mg/dL 65 - 110 11/26/2011 [facility] 1Interpretive Data: Upper Reportable Limit: 200 mg/dL. [facility] CHEMISTRY AGAP 15.4 meq/L 10.0 - 20.0 11/26/2011 Normal [facility] CHEMISTRY Calcium Lvl 8.0 mg/dL 8.5 - 10.5 11/26/2011 LOW [facility] CHEMISTRY Chloride Lvl 103 meq/L 95 - 109 11/26/2011 Normal [facility] CHEMISTRY CO2 23 meq/L 24 - 32 11/26/2011 LOW [facility] CHEMISTRY Potassium Lvl 4.4 meq/L 3.5 - 5.1 11/26/2011 Normal [facility] CHEMISTRY BUN 16 mg/dL 7 - 22 11/26/2011 Normal [facility] CHEMISTRY Sodium Lvl 137 meq/L 135 - 145 11/26/2011 Normal [facility] CHEMISTRY Glucose Lvl 295 mg/dL 11/26/2011 NA 3Interpretive Data: Reference Ranges : 0 - 7 days : 41 - 90 mg/dL7 days - 150 yrs : 70 - 99 mg/dL (fasting), based on the clinical recommendations of the [place] [employer]. [facility] CHEMISTRY Creatinine Lvl 0.7 mg/dL 0.5 - 1.4 11/26/2011 Normal [facility] HEMATOLOGY MPV 6.3 fL 7.4 - 10.4 11/26/2011 LOW [facility] HEMATOLOGY MCHC 34.4 g/dL 32.0 - 36.0 11/26/2011 Normal [facility] HEMATOLOGY MCH 30.2 pg 27.0 - 31.0 11/26/2011 Normal [facility] HEMATOLOGY Platelet 270 K/CMM 133 - 450 11/26/2011 Normal [facility] HEMATOLOGY RDW 14.3 % 11.5 - 14.5 11/26/2011 Normal [facility] HEMATOLOGY MCV 87.8 fL 81.0 - 99.0 11/26/2011 Normal [facility] HEMATOLOGY RBC 3.70 M/CMM 4.20 - 5.40 11/26/2011 LOW [facility] HEMATOLOGY WBC 6.3 K/CMM 3.7 - 10.4 11/26/2011 Normal [facility] HEMATOLOGY Hct 32.5 % 36.0 - 48.0 11/26/2011 LOW [facility] HEMATOLOGY Hgb 11.2 g/dL 12.0 - 16.0 11/26/2011 LOW [facility] HEMATOLOGY Plt Morph Normal (11/26/2011 08:01:00) 11/26/2011 Normal [facility] HEMATOLOGY RBC Morph Normal (11/26/2011 08:01:00) 11/26/2011 Normal [facility] HEMATOLOGY Lymphocytes 30.4 % 20.0 - 40.0 11/26/2011 Normal [facility] HEMATOLOGY Segs 58.6 % 45.0 - 75.0 11/26/2011 Normal [facility] HEMATOLOGY Basophils 0.3 % 0.0 - 1.0 11/26/2011 Normal [facility] HEMATOLOGY Eosinophils 2.3 % 0.0 - 4.0 11/26/2011 Normal [facility] HEMATOLOGY Monocytes 8.4 % 2.0 - 12.0 11/26/2011 Normal [facility] HEMATOLOGY Lymphocytes # 1.9 K/CMM 1.0 - 5.5 11/26/2011 Normal [facility] HEMATOLOGY Monocytes # 0.5 K/CMM 0.0 - 0.8 11/26/2011 Normal [facility] HEMATOLOGY Segs-Bands # 3.7 K/CMM 1.5 - 8.1 11/26/2011 Normal [facility] HEMATOLOGY Basophils # 0.0 K/CMM 0.0 - 0.2 11/26/2011 Normal [facility] HEMATOLOGY Eosinophils # 0.1 K/CMM 0.0 - 0.5 11/26/2011 Normal [facility] BEDSIDE GLUCOSE TESTING Gluc POC Lifscn 291 mg/dL 65 - 110 11/26/2011 [facility] 2Interpretive Data: Upper Reportable Limit: 200 mg/dL. [facility] BEDSIDE GLUCOSE TESTING Comment1 Notify RN/ 11/26/2011 NA [facility] CHEMISTRY A/G Ratio 1.1 0.7 - 1.6 11/26/2011 Normal [facility] CHEMISTRY Globulin 3.7 g/dL 2.0 - 4.0 11/26/2011 Normal [facility] CHEMISTRY B/C Ratio 20 6 - 25 11/26/2011 Normal [facility] CHEMISTRY AGAP 8.5 meq/L 10.0 - 20.0 11/26/2011 LOW [facility] CHEMISTRY AST 26 U/L 0 - 37 11/26/2011 Normal [facility] CHEMISTRY Bili Total 0.2 mg/dL 0.2 - 1.3 11/26/2011 Normal [facility] CHEMISTRY Albumin Lvl 3.9 g/dL 3.5 - 5.0 11/26/2011 Normal [facility] CHEMISTRY ALT 45 U/L 0 - 65 11/26/2011 Normal [facility] CHEMISTRY Alk Phos 143 U/L 39 - 136 11/26/2011 [facility] CHEMISTRY Total Protein 7.6 g/dL 6.4 - 8.4 11/26/2011 Normal [facility] CHEMISTRY CO2 34 meq/L 24 - 32 11/26/2011 HI [facility] CHEMISTRY Calcium Lvl 9.0 mg/dL 8.5 - 10.5 11/26/2011 Normal [facility] CHEMISTRY Potassium Lvl 4.5 meq/L 3.5 - 5.1 11/26/2011 Normal [facility] CHEMISTRY Chloride Lvl 98 meq/L 95 - 109 11/26/2011 Normal [facility] CHEMISTRY Sodium Lvl 136 meq/L 135 - 145 11/26/2011 Normal [facility] CHEMISTRY Creatinine Lvl 0.9 mg/dL 0.5 - 1.4 11/26/2011 Normal [facility] CHEMISTRY Glucose Lvl 348 mg/dL 11/26/2011 NA 4Interpretive Data: Reference Ranges : 0 - 7 days : 41 - 90 mg/dL7 days - 150 yrs : 70 - 99 mg/dL (fasting), based on the clinical recommendations of the [place] [employer]. [facility] CHEMISTRY BUN 18 mg/dL 7 - 22 11/26/2011 Normal [facility] HEMATOLOGY PTT 27.7 s 22.9 - 35.8 11/26/2011 Normal 6Interpretive Data: Heparin Therapeutic Range: 57 - 92 Seconds [facility] HEMATOLOGY INR 0.84 0.85 - 1.17 11/26/2011 LOW 5Interpretive Data: RECOMMENDED RANGES FOR PROTIME INR: 2.0-3.0 for most medical and surgical thromboembolic states. 2.5-3.5 for artificial heart valves and recurrent embolism.INR SHOULD BE USED ONLY FOR PATIENTS ON STABLE ANTICOAGULANT THERAPY. [facility] HEMATOLOGY PT 11.5 s 12.0 - 14.7 11/26/2011 LOW [facility] HEMATOLOGY Hgb 12.5 g/dL 12.0 - 16.0 11/26/2011 Normal [facility] HEMATOLOGY RBC 4.17 M/CMM 4.20 - 5.40 11/26/2011 LOW [facility] HEMATOLOGY MCH 30.1 pg 27.0 - 31.0 11/26/2011 Normal [facility] HEMATOLOGY MCV 87.0 fL 81.0 - 99.0 11/26/2011 Normal [facility] HEMATOLOGY MPV 6.7 fL 7.4 - 10.4 11/26/2011 LOW [facility] HEMATOLOGY Platelet 337 K/CMM 133 - 450 11/26/2011 Normal [facility] HEMATOLOGY WBC 7.2 K/CMM 3.7 - 10.4 11/26/2011 Normal [facility] HEMATOLOGY Hct 36.3 % 36.0 - 48.0 11/26/2011 Normal [facility] HEMATOLOGY RDW 14.7 % 11.5 - 14.5 11/26/2011 [facility] HEMATOLOGY MCHC 34.6 g/dL 32.0 - 36.0 11/26/2011 Normal [facility] HEMATOLOGY Eosinophils # 0.0 K/CMM 0.0 - 0.5 11/26/2011 Normal [facility] HEMATOLOGY Basophils # 0.0 K/CMM 0.0 - 0.2 11/26/2011 Normal [facility] HEMATOLOGY Monocytes # 0.5 K/CMM 0.0 - 0.8 11/26/2011 Normal [facility] HEMATOLOGY Lymphocytes # 2.0 K/CMM 1.0 - 5.5 11/26/2011 Normal [facility] HEMATOLOGY Segs-Bands # 4.5 K/CMM 1.5 - 8.1 11/26/2011 Normal [facility] HEMATOLOGY Basophils 0.2 % 0.0 - 1.0 11/26/2011 Normal [facility] HEMATOLOGY Eosinophils 0.6 % 0.0 - 4.0 11/26/2011 Normal [facility] HEMATOLOGY Monocytes 7.5 % 2.0 - 12.0 11/26/2011 Normal [facility] HEMATOLOGY Lymphocytes 28.4 % 20.0 - 40.0 11/26/2011 Normal [facility] HEMATOLOGY Segs 63.3 % 45.0 - 75.0 11/26/2011 Normal [facility] Vital Signs Vital Sign Value Date Comments Source Weight 68.636 08/26/2018 [facility] Height 152.4 cm 08/26/2018 [facility] BMI Calculated 29.55 08/26/2018 [facility] Weight 6.591 08/05/2018 [facility] BMI Calculated 2.84 08/05/2018 [facility] Height 152.4 cm 08/05/2018 [facility] BMI Calculated 29.55 05/06/2018 [facility] Weight 68.636 05/06/2018 [facility] Height 152.4 cm 05/06/2018 [facility] BMI Calculated 30.22 03/20/2018 [facility] Weight 70.199 03/20/2018 [facility] Height 152.4 cm 03/20/2018 [facility] Temperature Oral (F) 99.3 F 03/20/2018 [facility] Heart Rate 85 03/20/2018 [facility] Systolic (mm Hg) 106 03/20/2018 [facility] Diastolic (mm Hg) 69 03/20/2018 [facility] Systolic (mm Hg) 165 12/19/2015 [facility] Diastolic (mm Hg) 77 12/19/2015 [facility] Respitory Rate 16 12/19/2015 [facility] Heart Rate 89 12/19/2015 [facility] Temperature Oral (F) 99.1 F 12/19/2015 [facility] Respitory Rate 16 12/19/2015 [facility] Systolic (mm Hg) 135 12/19/2015 [facility] Diastolic (mm Hg) 84 12/19/2015 [facility] Heart Rate 90 12/19/2015 [facility] Temperature Oral (F) 98.1 F 12/19/2015 [facility] Respitory Rate 14 12/19/2015 [facility] Systolic (mm Hg) 160 12/19/2015 [facility] Diastolic (mm Hg) 77 12/19/2015 [facility] Temperature Oral (F) 98.7 F 12/19/2015 [facility] Heart Rate 81 12/19/2015 [facility] Weight 71.449 12/12/2015 [facility] BMI Calculated 30.76 12/12/2015 [facility] Height 152.4 cm 12/12/2015 [facility] Weight 63.636 08/16/2014 [facility] BMI Calculated 27.4 08/16/2014 [facility] Height 152.4 cm 08/16/2014 [facility] Respitory Rate 16 07/30/2014 [facility] Systolic (mm Hg) 114 07/30/2014 [facility] Respitory Rate 16 07/30/2014 [facility] Diastolic (mm Hg) 69 07/30/2014 [facility] Heart Rate 79 07/30/2014 [facility] Temperature Oral (F) 98.2 F 07/30/2014 [facility] Systolic (mm Hg) 120 07/30/2014 [facility] Heart Rate 64 07/30/2014 [facility] Temperature Oral (F) 97.7 F 07/30/2014 [facility] Respitory Rate 18 07/30/2014 [facility] Diastolic (mm Hg) 66 07/30/2014 [facility] Heart Rate 72 07/30/2014 [facility] Temperature Oral (F) 98.1 F 07/30/2014 [facility] Systolic (mm Hg) 149 07/30/2014 [facility] Diastolic (mm Hg) 78 07/30/2014 [facility] Height 152.4 cm 07/29/2014 [facility] BMI Calculated 27.4 07/29/2014 [facility] Weight 63.636 07/29/2014 [facility] Height 154.94 cm 07/28/2014 [facility] BMI Calculated 35.79 07/28/2014 [facility] Weight 85.909 07/28/2014 [facility] Respitory Rate 18 07/18/2014 [facility] Systolic (mm Hg) 137 07/18/2014 [facility] Diastolic (mm Hg) 73 07/18/2014 [facility] Heart Rate 88 07/18/2014 [facility] Temperature Oral (F) 98.8 F 07/18/2014 [facility] Respitory Rate 18 07/18/2014 [facility] Systolic (mm Hg) 120 07/18/2014 [facility] Temperature Oral (F) 97.9 F 07/18/2014 [facility] Heart Rate 82 07/18/2014 [facility] Diastolic (mm Hg) 70 07/18/2014 [facility] Temperature Oral (F) 97.9 F 07/18/2014 [facility] Heart Rate 71 07/18/2014 [facility] Diastolic (mm Hg) 71 07/18/2014 [facility] Systolic (mm Hg) 123 07/18/2014 [facility] Respitory Rate 17 07/18/2014 [facility] Weight 62.727 07/17/2014 [facility] BMI Calculated 27.01 07/17/2014 [facility] Height 152.4 cm 07/17/2014 [facility] BMI Calculated 26.13 07/17/2014 [facility] Height 154.94 cm 07/17/2014 [facility] Weight 62.727 07/17/2014 [facility] Weight 138 04/26/2014 [facility] Height 60 04/26/2014 [facility] Temperature Oral (F) 98.2 F 04/26/2014 [facility] Heart Rate 115 04/26/2014 [facility] Systolic (mm Hg) 139 04/26/2014 [facility] Diastolic (mm Hg) 73 04/26/2014 [facility] Weight 69.545 02/03/2012 [facility] Height 152.40 cm 02/03/2012 [facility] Systolic (mm Hg) 131 02/03/2012 [facility] Diastolic (mm Hg) 73 02/03/2012 [facility] Heart Rate 91 02/03/2012 [facility] Diastolic (mm Hg) 61 01/06/2012 [facility] Systolic (mm Hg) 88 01/06/2012 [facility] Heart Rate 100 01/06/2012 [facility] Height 152.40 cm 01/06/2012 [facility] Weight 69.091 01/06/2012 [facility] Diastolic (mm Hg) 73 11/26/2011 [facility] Systolic (mm Hg) 119 11/26/2011 [facility] Temperature Oral (F) 97.9 F 11/26/2011 [facility] Respitory Rate 16 11/26/2011 [facility] Heart Rate 79 11/26/2011 [facility] Respitory Rate 20 11/26/2011 [facility] Heart Rate 77 11/26/2011 [facility] Temperature Oral (F) 89.0 F 11/26/2011 [facility] Diastolic (mm Hg) 71 11/26/2011 [facility] Systolic (mm Hg) 135 11/26/2011 [facility] Temperature Oral (F) 98.0 F 11/26/2011 [facility] Heart Rate 87 11/26/2011 [facility] Diastolic (mm Hg) 73 11/26/2011 [facility] Respitory Rate 20 11/26/2011 [facility] Systolic (mm Hg) 135 11/26/2011 [facility] Height 152.40 cm 11/25/2011 [facility] Weight 70.455 11/25/2011 [facility] Weight 75.000 11/25/2011 [facility] Height 167.64 cm 11/25/2011 [facility] Systolic (mm Hg) 112 11/11/2011 [facility] Diastolic (mm Hg) 71 11/11/2011 [facility] Heart Rate 83 11/11/2011 [facility] Height 152.40 cm 11/11/2011 [facility] Weight 71.818 11/11/2011 [facility] Systolic (mm Hg) 115.0 09/02/2011 [facility] Diastolic (mm Hg) 68.0 09/02/2011 [facility] Heart Rate 75.0 09/02/2011 [facility] Weight 71.364 09/02/2011 [facility] Height 152.4 cm 09/02/2011 [facility] Heart Rate 96.0 07/15/2011 [facility] Systolic (mm Hg) 118.0 07/15/2011 [facility] Diastolic (mm Hg) 79.0 07/15/2011 [facility] Weight 70.455 07/15/2011 [facility] Height 152.4 cm 07/15/2011 [facility] Encounters Location Location Details Encounter Type Encounter Number Reason For Visit Attending Provider ADM Date DC Date Status Source [facility] Inpatient [id number] DIARRHEA, SEPTIC SHOCK LINDA RICHARDSON 04/15/2011 04/19/2011 Active [facility] IR [id number] BRAIN TUMOR MALINI NEHEMIAH 05/19/2011 06/07/2011 Active [facility] Outpatient [id number] INPATIENT FOLLOW UP IAIN MENDOZA 07/15/2011 Active [facility] TO [id number] TBI MALINI NEHEMIAH 08/14/2011 09/12/2011 Active [facility] Outpatient [id number] 6 WEEK FOLLOW UP IAIN MENDOZA 09/02/2011 Active [facility] OD [id number] 840.4 - SPRAIN ROTATOR ISRAEL DE LA CRUZ 09/17/2011 09/17/2011 Active [facility] [place] [facility] Outpatient [id number] FU. IAIN MENDOZA 11/11/2011 11/11/2011 Active [facility] TH [id number] RT ELBOW/SHOULDER ISRAEL DE LA CRUZ 11/14/2011 12/13/2011 Active [facility] [place] [facility] Inpatient [id number] RIGHT FOREARM FX GAGE KRAUSE 11/25/2011 11/26/2011 Active [facility] [id number] RT HAND ISRAEL STEWUDER 12/12/2011 Active [facility] [place] [facility] Outpatient [id number] FOLLOW UP IAIN MENDOZA 01/06/2012 Active [facility] TH [id number] RT HAND ISRAEL STEWUDER 01/12/2012 Active [facility] [place] [facility] Outpatient [id number] DDC- FOLLOW UP IAIN MENDOZA 02/03/[address] [facility] Outpatient [id number] 342.01, 250.60, 357.2, 294.0 RAJAN CALERO 02/03/2012 02/03/2012 Active [facility] TH [id number] RT HAND ISRAEL STEWUDER 03/01/2012 Active [facility] [place] [facility] Outpatient [id number] RIGHT FOR ARM FRACTURE, RIGHT WRIST STRAIN ISRAEL DE LA CRUZ 03/03/2012 Active [facility] Outpatient [id number] DDC-F/U IAIN MENDOZA 03/16/2012 03/16/2012 Active [facility] TH [id number] RT HAND ISRAEL JONO 04/06/2012 Active [facility] [place] TH [id number] RT HAND [place]RAEL DE LA CRUZ 05/13/2012 Active [facility] [place] [facility] Outpatient [id number] F/U VISIT [facility] HEATHER 06/29/2012 Active [facility] [place] OP Therapy Patients [id number] Israel De La Cruz 03/16/2014 04/15/2014 [facility] [place] [facility]patient Imaging [facility] [place] Outpt Diag Services [id number] Rajan Calero 04/25/2014 04/26/2014 [facility] [place] [facility] Lab Report [id number] Kristina Jaimes MD 04/28/2014 04/28/2014 [facility] Outpatient [id number] Fco Reyez 06/06/2014 06/07/2014 [facility] OBS Observation Patient [id number] Filomena Rodriguez 07/17/2014 07/18/2014 [facility] Inpatient [id number] Cole Teqwimuah 07/28/2014 07/30/2014 [facility] Outpatient [id number] Melyssa You 08/16/2014 08/17/2014 [facility] Bedded Outpatient [id number] Iain Mendoza 02/23/2015 02/26/2015 [facility] [place] OP Therapy Patients [id number] Israel De La Cruz 05/09/2015 06/08/2015 [facility] [place] [facility] Inpatient [id number] Israel De La Cruz 12/17/2015 12/19/2015 [facility] [place] OP Therapy Patients [id number] Israel De La Cruz 12/21/2015 01/20/2016 [facility] [place] [facility] [place] OP Therapy Patients [id number] Israel De La Cruz 01/21/2016 02/20/2016 [facility] [place] [facility] [place] OP Therapy Patients [id number] Israel Jono 02/22/2016 03/23/2016 [facility] [place] [facility] Outpatient [id number] Fco Reyez 04/19/2016 04/20/2016 [facility] Outpatient [id number] Fco Reyez 07/23/2016 07/24/2016 [facility] Outpatient Imaging [facility] [place] [facility] [id number] Agnes Brink 08/04/2016 08/05/2016 [facility] [place] [facility] Outpatient Imaging - [place] Out[facility] Diag Services [id number] Fco Reyez 11/25/2016 11/26/2016 [facility] [place] [facility] Outpatient Imaging [facility] [place] Out[facility] Diag Services [id number] Fco Reyez 12/09/2016 12/10/2016 [facility] [place] [facility] [place] OP Therapy Patients [id number] Tyson Taveras 01/06/2017 02/05/2017 [facility] [place] [facility] Outpatient [facility] [place] [facility] [id number] Cristiano Ahn 10/01/2017 10/02/2017 [facility] [place] [facility] Outpatient [facility] [place] [facility] [id number] Reema Woods 10/02/2017 10/03/2017 [facility] [place] [facility] Wound Care [id number] Elvie Bacon 03/02/2018 04/01/2018 [facility] Outpatient Imaging [facility] [place] Out[facility] Diag Services [id number] Elvie Bacon 03/04/2018 03/05/2018 [facility] [place] Outpatient [id number] KAMALJIT MENENDEZ 03/20/2018 [facility] Outpatient [id number] 03/20/2018 03/21/2018 [facility] Wound Care [id number] Belle Villatoro 04/07/2018 05/07/2018 [facility] Outpatient [id number] Agnes Brink 05/06/2018 05/07/2018 [facility] Wound Care [id number] Belle Villatoro 06/30/2018 07/30/2018 [facility] Outpatient [id number] Carlos Villagran 08/05/2018 08/06/2018 [facility] Outpatient [id number] Carlos Tyshawn 08/06/2018 08/07/2018 [facility] Outpatient [id number] Carlos Villagran 08/26/2018 08/27/2018 [facility] Outpatient [id number] Carlos Tyshawn 12/21/2018 12/22/2018 [facility] Wound Care [id number] Elvie Bacon 01/18/2019 02/17/2019 [facility] OD [id number] DOUBLE VISION, DIZZINESS, NAUSEA AGNES BRINK Cancel [facility] [place] TO [id number] TBI MALINI CERNA Active [facility] TH [id number] LUMBAR ISRAEL DE LA CRUZ Active [facility] [place] Procedures Procedure Code Date Perfomer Comments Source Cataract surgery [id number] 10/12/2009 [facility] [place] Cataract surgery [id number] 10/12/2009 [facility] Cataract surgery [id number] 10/12/2009 [facility] [place] Cataract surgery [id number] 10/12/2009 [facility] Cataract surgery [id number] 10/12/2009 [facility] Cataract surgery [id number] 10/12/2008 [facility] [place] Cataract surgery [id number] 10/12/2008 [facility] Cataract surgery [id number] 10/12/2008 [facility] [place] Cataract surgery [id number] 10/12/2008 [facility] Cataract surgery [id number] 10/12/2008 [facility] Hernia repair [id number] 10/12/2006 [facility] [place] Hernia repair [id number] 10/12/2006 [facility] Hernia repair [id number] 10/12/2006 [facility] [place] Hernia repair [id number] 10/12/2006 [facility] Hernia repair [id number] 10/12/2006 [facility] Tympanoplasty [id number] 10/12/2005 [facility] [place] Tympanoplasty [id number] 10/12/2005 [facility] Tympanoplasty [id number] 10/12/2005 [facility] [place] Tympanoplasty [id number] 10/12/2005 [facility] Tympanoplasty [id number] 10/12/2005 [facility] Appendectomy [id number] 10/12/1999 [facility] [place] Appendectomy [id number] 10/12/1999 [facility] [id number] 10/12/1999 [facility] [place] Appendectomy [id number] 10/12/1999 [facility] Appendectomy [id number] 10/12/1999 [facility] ELIEZER - Manipulation of joint under anesthetic [id number] 10/12/1996 [facility] [place] ELIEZER - Manipulation of joint under anesthetic [id number] 10/12/1996 [facility] - Manipulation of joint under anesthetic [id number] 10/12/1996 [facility] [place] ELIEZER - Manipulation of joint under anesthetic [id number] 10/12/1996 [facility] ELIEZER - Manipulation of joint under anesthetic [id number] 10/12/1996 [facility] Mastoidectomy [id number] 10/12/1992 [facility] [place] Mastoidectomy [id number] 10/12/1992 [facility] Mastoidectomy [id number] 10/12/1992 [facility] [place] Mastoidectomy [id number] 10/12/1992 [facility] Mastoidectomy [id number] 10/12/1992 [facility] Carpal tunnel release [id number] 10/12/1982 [facility] [place] Carpal tunnel release [id number] 10/12/1982 [facility] Carpal tunnel release [id number] 10/12/1982 [facility] [place] Carpal tunnel release [id number] 10/12/1982 [facility] Carpal tunnel release [id number] 10/12/1982 [facility] Carpal tunnel release [id number] 10/12/1981 [facility] [place] Carpal tunnel release [id number] 10/12/1981 [facility] Carpal tunnel release [id number] 10/12/1981 [facility] [place] Carpal tunnel release [id number] 10/12/1981 [facility] Carpal tunnel release [id number] 10/12/1981 [facility] section [id number] 10/12/1979 [facility] [place] section [id number] 10/12/1979 [facility] section [id number] 10/12/1979 [facility] [place] section [id number] 10/12/1979 [facility] section [id number] 10/12/1979 [facility] section [id number] 10/12/1977 [facility] [place] section [id number] 10/12/1977 [facility] section [id number] 10/12/1977 [facility] [place] section [id number] 10/12/1977 [facility] section [id number] 10/12/1977 [facility] Tonsillectomy and adenoidectomy [id number] 10/12/1962 [facility] [place] Tonsillectomy and adenoidectomy [id number] 10/12/1962 [facility] Tonsillectomy and adenoidectomy [id number] 10/12/1962 [facility] [place] Tonsillectomy and adenoidectomy [id number] 10/12/1962 [facility] Tonsillectomy and adenoidectomy [id number] 10/12/1962 [facility] Abdominal hysterectomy and left salpingo-oophorectomy [id number] [facility] Appendectomy [id number] [facility] Cholecystotomy and removal of foreign body from gallbladder [id number] [facility] Mastoidectomy [id number] [facility] Oophorectomy [id number] [facility] Abdominal hysterectomy and left salpingo-oophorectomy [id number] [facility] [place] Appendectomy [id number] [facility] [place] Cholecystotomy and removal of foreign body from gallbladder [id number] [facility] [place] Mastoidectomy [id number] [facility] [place] Oophorectomy [id number] [facility] [place] Abdominal hysterectomy and left salpingo-oophorectomy [id number] [facility] Appendectomy [id number] [facility] Cholecystotomy and removal of foreign body from gallbladder [id number] [facility] Mastoidectomy [id number] [facility] Oophorectomy 48409052 [facility] Abdominal hysterectomy and left salpingo-oophorectomy [id number] [facility] [place] Appendectomy [id number] [facility] [place] Cholecystotomy and removal of foreign body from gallbladder [id number] [facility] [place] Mastoidectomy [id number] [facility] [place] Oophorectomy [id number] [facility] [place] Hysterectomy [id number] [facility] Abdominal hysterectomy and left salpingo-oophorectomy 840332162 [facility] Appendectomy [id number] [facility] Cholecystotomy and removal of foreign body from gallbladder [id number] [facility] Hysterectomy [id number] [facility] Mastoidectomy [id number] [facility] Oophorectomy [id number] [facility] Hysterectomy [id number] [facility]
--- OUTSIDE RECORDS SUMMARY | 2019-03-22 01:53 | XMS REPORT | Summary of Care ---
Author Author [facility] [place] Organization [facility] [place] Address Unknown Phone Unavailable Encounter ROSE MARY Duque(ANAYELI) [id number] Date(s): 03/04/18 - 03/04/18 [facility] [place] [address] [place] [address]- [facility] [phone] Discharge Disposition: Home or Self Care Attending Physician: Elvie Bacon MD Vital Signs No data available for [...] 2008 Completed Hernia repair 2007 Completed Tympanoplasty 2005 Completed Appendectomy 1999 Completed ELIEZER - Manipulation of joint under anesthetic 1996 Completed Mastoidectomy 1992 Completed Carpal tunnel release 1982 Completed Carpal tunnel release 1982 Completed section 1980 Completed section 1978 Completed Tonsillectomy and adenoidectomy 1963 Completed Abdominal hysterectomy and left Completed salpingo-oophorectomy Appendectomy Completed Cholecystotomy and removal of foreign body Completed from gallbladder Mastoidectomy Completed Oophorectomy Completed Social History Social History Type Response Substance Abuse Use: None. Alcohol Never Smoking Status Never smoker; Exposure to Tobacco Smoke None; Cigarette Smoking Last 365 Days Yes; Reg Smoking Cessation Counseling No1 entered on: 12/17/15 1no change Assessment and Plan No data available for this section
--- OUTSIDE RECORDS SUMMARY | 2019-03-22 01:53 | XMS REPORT | Summary of Care ---
Author Author [facility] Organization [facility] Address Unknown Phone Unavailable Encounter [facility](ANAYELI) [phone] Date(s): 03/02/18 - 03/31/18 [facility] [address] Discharge Disposition: Home or Self Care Attending Physician: Elvie Bacon MD Referring Physician: Elvie Bacon MD Vital Signs No [...] Reg Smoking Cessation Counseling No1 entered on: 03/20/18 1no change Assessment and Plan No data available for this section
--- OUTSIDE RECORDS SUMMARY | 2019-03-22 01:53 | XMS REPORT | CCD ---
Author Author Auto Generated Organization [facility] Address Unknown Phone Unavailable Care Team Providers Care Sheet Metal Installer Name Role Phone KevinSana CP Unavailable PCP, None CP Unavailable Michael Rizo CP Elly Frederick CP Unavailable Marcela Hargrove CP ChartServer, Paulin CP Unavailable Deana Youssef CP Unavailable Marilee Green CP [phone] Maribel Watters CP Unavailable Samantha Breen CP [phone] Kinza Oliveira CP Unavailable Jessica Miranda CP Unavailable Chris Kitchen CP Unavailable Divya Davis CP Unavailable Angelita Vega CP Unavailable Hemalatha Hatfield CP Unavailable SippRuba CP Unavailable Allergies, Adverse Reactions, Alerts Substance Reaction Status NKDA ?? Active Problem List Condition Effective Dates Status Bloody stool 05/05/2011 Active Colitis 05/18/2011 Active Depressed ?? Active Diabetic nephropathy ?? Active Diarrhea ?? Active Nausea ?? Active Sepsis ?? Active Shortness of breath < 04/15/2011 Resolved
--- OUTSIDE RECORDS SUMMARY | 2019-03-22 01:53 | XMS REPORT | Summary of Care ---
Author Author [facility] Organization [facility] Address Unknown Phone Unavailable Encounter [facility](FIN) [phone] Date(s): 05/06/18 - 05/06/18 [facility] [address] [address]- [phone] Encounter Diagnosis Other chest pain (Final) - 05/11/18 Type 1 diabetes mellitus with unspecified complications (Final) - Type 1 diabetes mellitus with hyperglycemia (Final) - Hypertensive heart disease without heart failure (Final) - Pure hypercholesterolemia, unspecified (Final) - Family history of ischemic heart disease and other diseases of the circulatory s ystem (Final) - Discharge Disposition: Home or Self Care Attending Physician: Agnes Brink MD Referring Physician: Agnes Brink MD Vital Signs Most recent to 1 oldest [Reference Range]: Height 152.4 cm (05/06/18 7:34 AM) Weight 68.636 kg (05/06/18 7:34 AM) Body Mass Index 29.55 m2 (05/06/18 7:34 AM) Problem List Condition Effective Dates Status [...] on 02/08/15. Originally documented as REMICAID. Medications DOBUTamine 50 mg + Dextrose 5% in Water IV 46 mL 46 mL, Rate: infuse as directed, Route: IV, Dosing Weight 68.636 kg, Total Volum e: 50, Start date: 05/06/18 9:25:00 CDT, Duration: 1 day, Stop date: 05/07/18 9: 24:00 CDT, 1.73, m2 Notes: (Same as: Dobutrex) Not for direct administration- DILUTE. Start Date: 05/06/18 Stop Date: 05/07/18 Status: Completed valACYclovir 500 mg oral tablet 500 mg=1 tab, PO, Daily Start Date: 05/06/18 Status: Ordered Results No data available for this section [...] repair 2007 Completed Tympanoplasty 2006 Completed Appendectomy 1999 Completed [facility] - Manipulation [...]
--- OUTSIDE RECORDS SUMMARY | 2019-03-22 01:53 | XMS REPORT | CCD ---
Author Author Auto Generated Organization [facility] Address Unknown Phone Unavailable Care Team Providers Care Vessel Liner Name Role Phone BrownSana box CP Unavailable PCP, None CP Unavailable Carlos Castle CP Unavailable Michael Rizo CP Elly Frederick CP Unavailable Marcela Hargrove CP Catina Gaines CP Unavailable ChartServer, Login CP Unavailable Deana Youssef CP Unavailable Marilee Green CP [phone] Maribel Watters CP Unavailable Jaclyn Nichole CP [phone] Samantha Breen CP [phone] Kinza Oliveira CP Unavailable Jessica Miranda CP Unavailable Chris Kitchen CP Unavailable Divya Davis CP Unavailable Angelita Vega CP Unavailable Hemalatha Hatfield CP Unavailable Florentin Carey CP Unavailable Allergies, Adverse Reactions, Alerts Substance Reaction Status NKDA ?? Active Problem List Condition Effective Dates Status Bloody stool 05/05/2011 Active Colitis 05/18/2011 Active Depressed ?? Active Diabetic nephropathy ?? Active Diarrhea ?? Active Nausea ?? Active Sepsis ?? Active Shortness of breath < 04/15/2011 Resolved
--- OUTSIDE RECORDS SUMMARY | 2019-03-22 01:53 | XMS REPORT | Summary of Care ---
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 LET primary care To Take care. Procedures Procedure Date Related Diagnosis [...]
--- OUTSIDE RECORDS SUMMARY | 2019-03-22 01:53 | XMS REPORT | CCD ---
Author Author Auto Generated Organization [facility] Address Unknown Phone Unavailable Care Team Providers Care Hydraulic Pile Hammer Operator Name Role Phone BrownSana box CP Unavailable Thor Gibson RP Franchesca Jeffrey CP Unavailable Marcela Hargrove CP ChartServer, Login CP Unavailable Adrien Ross CP Unavailable Marilee Green CP [phone] Agnes Brink CP Samantha Breen CP [phone] Kinza Oliveira CP Unavailable Jessica Miranda CP Unavailable Brittaney Araujo CP Divya Davis CP Unavailable Angelita Vega CP Unavailable Hemalatha Hatfield CP Unavailable Allergies, Adverse Reactions, Alerts Substance Reaction Status NKDA ?? Active Problem List Condition Effective Dates Status Bloody stool 05/05/2011 Active Colitis 05/18/2011 Active Depressed ?? Active Diabetic nephropathy ?? Active Diarrhea ?? Active Nausea ?? Active Sepsis ?? Active Shortness of breath < 04/15/2011 Resolved Vital Signs Most recent to oldest [Reference Range]: 1 Height 152.40 cm (07/15/2011 16:42:00) ?? Systolic Blood Pressure [90-140 mmHg] 118 mmHg (07/15/2011 16:42:00) ?? Diastolic Blood Pressure [60-90 mmHg] 79 mmHg (07/15/2011 16:42:00) ?? Peripheral Pulse Rate [60-100 bpm] 96 bpm (07/15/2011 16:42:00) ?? Weight 70.455 kg (07/15/2011 16:42:00) ??
--- OUTSIDE RECORDS SUMMARY | 2019-03-22 01:53 | XMS REPORT | Summary of Care ---
Author Author [facility] Organization [facility] Address Unknown Phone Unavailable Care Team Providers Care Lettuce Trimmer Name Role Phone Vincent Graff PCP Encounter [facility](FIN) [phone] Date(s): 01/18/19 - 02/16/[address] Discharge Disposition: Home or Self Care [...] Status Cataract surgery 2009 Completed Cataract surgery 2009 Completed Hernia repair 2007 Completed Tympanoplasty 2005 [...]
--- OUTSIDE RECORDS SUMMARY | 2019-03-22 01:53 | XMS REPORT | Summary of Care ---
Author Author [facility] Address Unknown Phone Unavailable Encounter ROSE MARY Duque(FIN) [id number] Date(s): 03/20/18 - 03/20/18 [facility] [address] [place] [address] [phone] Discharge Disposition: Home or Self Care Vital Signs Most recent to 1 oldest [Reference Range]: Height 152.4 cm (03/20/18 1:36 PM) Temperature Oral 99.3 DegF [96.4-99.1 DegF] *HI* (03/20/18 1:36 PM) Blood Pressure 106/69 mmHg [90-140/60-90 mmHg] (03/20/18 1:36 PM) Peripheral Pulse 85 bpm Rate [60-100 bpm] (03/20/18 1:36 PM) Weight 70.199 kg (03/20/18 1:36 PM) Body Mass Index 30.22 m2 (03/20/18 1:36 PM) Problem List Condition Effective Dates Status Health [...] on 02/08/15. Originally documented as REMICAID. Medications Aciphex 20 mg, PO, Daily, 0 Refill(s) Start Date: 03/20/18 Status: Ordered Advair Diskus 500 mcg-50 mcg inhalation powder 1 puff, INHALATION, BID, 0 Refill(s) Start Date: 03/20/18 Status: Ordered Bactroban 2% topical ointment 1 appl, TOP, TID, PRN as needed, Apply to affected area(s), X 14 day, # 22 gm, 1 Refill(s), Pharmacy: [facility] [id number] Start Date: 03/20/18 Stop Date: 04/17/18 Status: Ordered Humira 40 mg, SUB-Q, ONCE, 0 Refill(s) Start Date: 03/20/18 Status: Ordered LaMICtal PO, BID, 0 Refill(s) Start Date: 03/20/18 Status: Ordered levothyroxine Daily, 0 Refill(s) Start Date: 03/20/18 Status: Ordered lidocaine IV, ONCE, 0 Refill(s) Start Date: 03/20/18 Status: Ordered Lipitor PO, Daily, 0 Refill(s) Start Date: 03/20/18 Status: Ordered losartan PO, Daily, 0 Refill(s) Start Date: 03/20/18 Status: Ordered Wellbutrin PO, 0 Refill(s) Start Date: 03/20/18 Status: Ordered Results No data available for [...]
--- OUTSIDE RECORDS SUMMARY | 2019-03-22 01:53 | XMS REPORT | Summary of Care ---
Author Author [facility] Organization [facility] Address Unknown Phone Unavailable Encounter [facility](ANAYELI) [phone] Date(s): 12/21/18 - 12/21/18 [facility] [address] [place] [address]- Discharge Disposition: Home or Self Care Attending Physician: Carlos Villagran MD Referring Physician: Carlos Villagran MD Vital Signs No data available for [...]
--- OUTSIDE RECORDS SUMMARY | 2019-03-22 01:53 | XMS REPORT | Summary of Care ---
Author Author [facility] Organization [facility] Address Unknown Phone Unavailable Care Team Providers Care Railroad Inspector Name Role Phone Vincent Graff PCP Encounter HQ Neto(FIN) [phone] Date(s): 08/06/18 - 08/06/18 [facility] [address] [place] [address]- Encounter Diagnosis Unspecified asthma, uncomplicated (Final) - 08/12/18 Other chest pain (Final) - Cough (Final) - Other forms of dyspnea (Final) - Diaphragmatic hernia without obstruction or gangrene (Final) - Discharge Disposition: Home or Self Care Attending Physician: Carlos Villagran MD Referring Physician: Delonte Castillo MD Referring Physician: Carlos Villagran MD Vital [...]
--- OUTSIDE RECORDS SUMMARY | 2019-03-22 01:53 | XMS REPORT | Summary of Care ---
Author Author [facility] Organization [facility] Address Unknown Phone Unavailable Care Team Providers Care Weapons Officer [employer] Name Role Phone Vincent Graff PCP Encounter HQ Carl_katerina(FIN) [phone] Date(s): 08/05/18 - 08/05/18 [facility] [address] [place] [address]- Encounter Diagnosis Other forms of dyspnea (Final) - 08/11/18 Discharge Disposition: Home or Self Care Attending Physician: Carlos Villagran MD Referring Physician: Carlos Villagran MD Vital Signs Most recent to 1 oldest [Reference Range]: Height 152.4 cm (08/05/18 2:30 PM) Weight 6.591 kg (08/05/18 2:30 PM) Body Mass Index 2.84 m2 (08/05/18 2:30 PM) Problem List Condition Effective Dates Status [...]
--- OUTSIDE RECORDS SUMMARY | 2019-03-22 01:53 | XMS REPORT | CCD ---
Author Author Auto Generated Organization [facility] Address Unknown Phone Unavailable Care Team Providers Care Supervisor Reactor Fueling Name Role Phone Sana Brown CP Unavailable Thor Gibson RP Tory Ding CP [phone] Marcela Hargrove CP [employer], Login CP Unavailable Cindy Bush CP Marilee Green CP [phone] Samantha Breen CP [phone] Kinza Oliveira CP Unavailable Jessica Miranda CP Unavailable Divya Davis CP Unavailable Angelita [...] oldest [Reference Range]: 1 Height 152.40 cm (09/02/2011 16:28:00) ?? Systolic Blood Pressure [90-140 mmHg] 115 mmHg (09/02/2011 16:28:00) ?? Diastolic Blood Pressure [60-90 mmHg] 68 mmHg (09/02/2011 16:28:00) ?? Peripheral Pulse Rate [60-100 bpm] 75 bpm (09/02/2011 16:28:00) ?? Weight 71.364 kg (09/02/2011 16:28:00) ??
--- OUTSIDE RECORDS SUMMARY | 2019-03-22 01:54 | XMS REPORT | CCD ---
Author Author Auto Generated Organization [facility] Address Unknown Phone Unavailable Care Team Providers Care Resource Conservation Specialist Name Role Phone ArthurThor RP Allergies, Adverse Reactions, Alerts Substance Reaction Status NKDA Active Problem List Condition Effective Dates Status Appendectomy Active Bloody stool 05/05/2011 Active Colitis 05/18/2011 Active Depressed Active Diabetic nephropathy Active Diarrhea Active Hysterectomy Active Nausea Active Sepsis Active Shortness of breath < 04/15/2011 Resolved Vital Signs Most recent to oldest [Reference Range]: 1 Height 152.40 cm (02/03/2012 14:07:00) Systolic Blood Pressure [90-140 mmHg] 131 mmHg (02/03/2012 14:07:00) Diastolic Blood Pressure [60-90 mmHg] 73 mmHg (02/03/2012 14:07:00) Peripheral Pulse Rate [60-100 bpm] 91 bpm (02/03/2012 14:07:00) Weight 69.545 kg (02/03/2012 14:07:00)
--- OUTSIDE RECORDS SUMMARY | 2019-03-22 01:54 | XMS REPORT | CCD ---
Author Author Auto Generated Organization [facility] Address Unknown Phone Unavailable Care Team Providers Care Chainstitch Binder Name Role Phone ArthurThor RP Allergies, Adverse Reactions, Alerts Substance Reaction Status NKDA Active Problem List Condition Effective Dates Status Appendectomy Active Bloody stool 05/05/2011 Active Colitis 05/18/2011 Active Depressed Active Diabetic nephropathy Active Diarrhea Active Hysterectomy Active Nausea Active Sepsis Active Shortness of breath < 04/15/2011 Resolved Vital Signs Most recent to oldest [Reference Range]: 1 Height 152.40 cm (01/06/2012 13:07:00) Systolic Blood Pressure [90-140 mmHg] 88 mmHg *LOW* (01/06/2012 13:07:00) Diastolic Blood Pressure [60-90 mmHg] 61 mmHg (01/06/2012 13:07:00) Peripheral Pulse Rate [60-100 bpm] 100 bpm (01/06/2012 13:07:00) Weight 69.091 kg (01/06/2012 13:07:00)
--- OUTSIDE RECORDS SUMMARY | 2019-03-22 01:54 | XMS REPORT | CCD ---
Author Author Auto Generated Organization [facility] Address Unknown Phone Unavailable Care Team Providers Care Vp Outcomes Name Role Phone Rogers De La Cruz CP Allergies, Adverse Reactions, Alerts Substance Reaction Status NKDA Canceled Remicade Active Problem List Condition Effective Dates Status Appendectomy Active Bloody stool 05/05/2011 Active Colitis 05/18/2011 Active Depressed Active Diabetic nephropathy Active Diarrhea Active Hysterectomy Active Nausea Active Sepsis Active Shortness of breath < 04/15/2011 Resolved
--- OUTSIDE RECORDS SUMMARY | 2019-03-22 01:54 | XMS REPORT | CCD ---
Author Author Auto Generated Organization [facility] Address Unknown Phone Unavailable Care Team Providers Care Senior Operations Analyst Name Role Phone Rogers De La Cruz CP Allergies, Adverse Reactions, Alerts Substance Reaction Status NKDA Active Problem List Condition Effective Dates Status Appendectomy Active Bloody stool 05/05/2011 Active Colitis 05/18/2011 Active Depressed Active Diabetic nephropathy Active Diarrhea Active Hysterectomy Active Nausea Active Sepsis Active Shortness of breath < 04/15/2011 Resolved
--- OUTSIDE RECORDS SUMMARY | 2019-03-22 01:54 | XMS REPORT | CCD ---
Author Author Auto Generated Organization [facility] Kevin Address Unknown Phone Unavailable Care Team Providers Care Customer Engagement Specialist Name Role Phone Rogers De La Cruz CP Allergies, Adverse Reactions, Alerts Substance Reaction Status NKDA Active Problem List Condition Effective Dates Status Appendectomy Active Bloody stool 05/05/2011 Active Colitis 05/18/2011 Active Depressed Active Diabetic nephropathy Active Diarrhea Active Hysterectomy Active Nausea Active Sepsis Active Shortness of breath < 04/15/2011 Resolved
--- OUTSIDE RECORDS SUMMARY | 2019-03-22 01:54 | XMS REPORT | CCD ---
Author Author Auto Generated Organization [facility] Kevin Address Unknown Phone Unavailable Care Team Providers Care Tractor Trailer Moving Van Driver Name Role Phone Rogers De La Cruz CP Allergies, Adverse Reactions, Alerts Substance Reaction Status Remicade Active Problem List Condition Effective Dates Status Appendectomy Active Bloody stool 05/05/2011 Active Colitis 05/18/2011 Active Depressed Active Diabetic nephropathy Active Diarrhea Active Hysterectomy Active Nausea Active Sepsis Active Shortness of breath < 04/15/2011 Resolved
--- OUTSIDE RECORDS SUMMARY | 2019-03-22 01:54 | XMS REPORT | CCD ---
Author Author Auto Generated Organization [facility] Address Unknown Phone Unavailable Care Team Providers Care Premium Card Cancellation Clerk Name Role Phone Rogers De La Cruz CP Allergies, Adverse Reactions, Alerts Substance Reaction Status NKDA Active Problem List Condition Effective Dates Status Bloody stool 05/05/2011 Active Colitis 05/18/2011 Active Depressed Active Diabetic nephropathy Active Diarrhea Active Nausea Active Sepsis Active Shortness of breath < 04/15/2011 Resolved
--- OUTSIDE RECORDS SUMMARY | 2019-03-22 01:54 | XMS REPORT | CCD ---
Author Author Auto Generated Organization [facility] Address Unknown Phone Unavailable Care Team Providers Care Detacker Name Role Phone Jerry Sepulveda James CP Allergies, Adverse Reactions, Alerts Substance Reaction Status NKDA Active Problem List Condition Effective Dates Status Appendectomy Active Bloody stool 05/05/2011 Active Colitis 05/18/2011 Active Depressed Active Diabetic nephropathy Active Diarrhea Active Hysterectomy Active Nausea Active Sepsis Active Shortness of breath < 04/15/2011 Resolved Medications Medication Instructions Start Date End Date Status Valium 5 mg oral 5 mg, 1 tab, PO, Q6H, PRN, 30 tab, 11/26/2011 Ordered tablet spasms, Substitution Allowed, TAB Zofran ODT 4 mg, 1 tab, Route: SL, Drug form: 11/25/2011 11/25/2011 Completed TABDIS, ONCE, Priority: STAT, Start date: 11/25/11 18:18:00, Stop date: 11/25/11 18:18:00 Ambien 10 mg oral 10 mg, 1 tab, PO, Bedtime, PRN, 30 11/26/2011 Ordered tablet tab, for sleep, Substitution Allowed, TAB Sprakers 10/325 oral 1-2 tab, PO, Q4-6H, PRN, 40 tab, 1, 11/26/2011 12/06/2011 Ordered tablet 1, Pain, Substitution Allowed, Maintenance morphine Sulfate 4 mg, 2 mL, Route: IVP, Drug form: 11/25/2011 11/25/2011 Completed INJ, ONCE, Priority: STAT, Start date: 11/25/11 18:18:00, Stop date: 11/25/11 18:18:00 Saline Flush 0.9% 5 ml, Route: IVP, Drug Form: INJ, 11/25/2011 11/26/2011 Discontinued PRN, PRN Line Flush, Start date: 11/25/11 18:18:00, Duration: 30 day, Stop date: 12/25/11 19:17:00 hydromorphone 1 mg, Route: IVP, ONCE, Priority: 11/25/2011 11/25/2011 Completed STAT, Start date: 11/25/11 19:32:00, Stop date: 11/25/11 19:32:00 etomidate 10 mg, 5 mL, Route: IVP, Drug form: 11/25/2011 11/25/2011 Discontinued INJ, ONCE, Priority: STAT, Start date: 11/25/11 19:50:00, Stop date: 11/25/11 19:50:00 folic acid 0.4 mg, 1 tab, Route: PO, Drug 11/26/2011 11/26/2011 Discontinued form: TAB, Daily, Start date: 11/26/11 9:00:00, Duration: 30 day, Stop date: 12/25/11 9:00:00 tramadol 300 mg, 6 tab, Route: PO, Drug 11/26/2011 11/26/2011 Discontinued form: TAB, Daily, Start date: 11/26/11 9:00:00, Duration: 30 day, Stop date: 12/25/11 9:00:00 levothyroxine 0.15 mg, 1 tab, Route: PO, Drug 11/26/2011 11/26/2011 Discontinued form: TAB, Q630AM, Start date: 11/26/11 6:30:00, Duration: 30 day, Stop date: 12/25/11 6:30:00 insulin aspart 10 unit, 0.1 mL, Route: SUB-Q, Drug 11/26/2011 11/26/2011 Discontinued form: SOLN, TID-Before Meals, PRN Blood Glucose Results, Start date: 11/26/11 1:16:00, Duration: 30 day, Stop date: 12/26/11 1:15:00 insulin aspart 8 unit, 0.08 mL, Route: SUB-Q, Drug 11/26/2011 11/26/2011 Discontinued form: SOLN, TID-Before Meals, PRN Blood Glucose Results, Start date: 11/26/11 1:16:00, Duration: 30 day, Stop date: 12/26/11 1:15:00 insulin aspart 6 unit, 0.06 mL, Route: SUB-Q, Drug 11/26/2011 11/26/2011 Discontinued form: SOLN, TID-Before Meals, PRN Blood Glucose Results, Start date: 11/26/11 1:16:00, Duration: 30 day, Stop date: 12/26/11 1:15:00 insulin aspart 4 unit, 0.04 mL, Route: SUB-Q, Drug 11/26/2011 11/26/2011 Discontinued form: SOLN, TID-Before Meals, PRN Blood Glucose Results, Start date: 11/26/11 1:16:00, Duration: 30 day, Stop date: 12/26/11 1:15:00 insulin aspart 2 unit, 0.02 mL, Route: SUB-Q, Drug 11/26/2011 11/26/2011 Discontinued form: SOLN, TID-Before Meals, PRN Blood Glucose Results, Start date: 11/26/11 1:16:00, Duration: 30 day, Stop date: 12/26/11 1:15:00 insulin aspart 4 unit, 0.04 mL, Route: SUB-Q, Drug 11/26/2011 11/26/2011 Discontinued form: SOLN, Bedtime, PRN Blood Glucose Results, Start date: 11/26/11 1:16:00, Duration: 30 day, Stop date: 12/26/11 1:15:00 insulin aspart 3 unit, 0.03 mL, Route: SUB-Q, Drug 11/26/2011 11/26/2011 Discontinued form: SOLN, Bedtime, PRN Blood Glucose Results, Start date: 11/26/11 1:16:00, Duration: 30 day, Stop date: 12/26/11 1:15:00 insulin aspart 2 unit, 0.02 mL, Route: SUB-Q, Drug 11/26/2011 11/26/2011 Discontinued form: SOLN, Bedtime, PRN Blood Glucose Results, Start date: 11/26/11 1:16:00, Duration: 30 day, Stop date: 12/26/11 1:15:00 insulin aspart 1 unit, 0.01 mL, Route: SUB-Q, Drug 11/26/2011 11/26/2011 Discontinued form: SOLN, Bedtime, PRN Blood Glucose Results, Start date: 11/26/11 1:16:00, Duration: 30 day, Stop date: 12/26/11 1:15:00 glucagon 1 mg, Route: IM, Drug form: 11/26/2011 11/26/2011 Discontinued PDR/INJ, PRN, PRN Blood Glucose Results, Start date: 11/26/11 1:16:00, Duration: 30 day, Stop date: 12/26/11 2:15:00 Dextrose 50% Syringe 25 gm, 50 mL, Route: IVP, Drug 11/26/2011 11/26/2011 Discontinued Form: INJ, PRN, PRN Blood Glucose Results, Start date: 11/26/11 1:16:00, Duration: 30 day, Stop date: 12/26/11 2:15:00 Dextrose 50% Syringe 12.5 gm, 25 mL, Route: IVP, Drug 11/26/2011 11/26/2011 Discontinued Form: INJ, PRN, PRN Blood Glucose Results, Start date: 11/26/11 1:16:00, Duration: 30 day, Stop date: 12/26/11 2:15:00 gabapentin 1,000 mg, Route: PO, TID, Start 11/26/2011 11/26/2011 Deleted date: 11/26/11 9:00:00, Duration: 30 day, Stop date: 12/25/11 17:00:00 tolterodine 4 mg, 1 cap, Route: PO, Drug form: 11/26/2011 11/26/2011 Discontinued CAP, Daily, Start date: 11/26/11 9:00:00, Duration: 30 day, Stop date: 12/25/11 9:00:00 solifenacin 10 mg, Route: PO, Drug form: TAB, 11/26/2011 11/26/2011 Deleted Daily, Start date: 11/26/11 9:00:00, Duration: 30 day, Stop date: 12/25/11 9:00:00 Vitamin B1 100 mg, 1 tab, Route: PO, Drug 11/26/2011 11/26/2011 Discontinued form: TAB, Daily, Start date: 11/26/11 9:00:00, Duration: 30 day, Stop date: 12/25/11 9:00:00 pantoprazole 40 mg, 1 tab, Route: PO, Drug form: 11/26/2011 11/26/2011 Discontinued ECTAB, BID, Start date: 11/26/11 9:00:00, Duration: 30 day, Stop date: 12/25/11 17:00:00 Singulair 10 mg, 1 tab, Route: PO, Drug form: 11/26/2011 11/26/2011 Canceled TAB, QPM, Start date: 11/26/11 17:00:00, Duration: 30 day, Stop date: 12/25/11 17:00:00 Levothroid 0.025 mg, 1 tab, Route: PO, Drug 11/26/2011 11/26/2011 Canceled form: TAB, Q630AM, Start date: 11/26/11 6:30:00, Duration: 30 day, Stop date: 12/25/11 6:30:00 mesalamine 400 mg 800 mg, 2 tab, Route: PO, Drug 11/26/2011 11/26/2011 Discontinued oral enteric coated form: ECTAB, TID, Start date: tablet 11/26/11 9:00:00, Duration: 30 day, Stop date: 12/25/11 17:00:00 levothyroxine 0.112 mg, 1 tab, Route: PO, Drug 11/26/2011 11/26/2011 Canceled form: TAB, Q630AM, Start date: 11/26/11 6:30:00, Duration: 30 day, Stop date: 12/25/11 6:30:00 Xopenex 0.63 mg, 3 mL, Route: NEB, Drug 11/26/2011 11/26/2011 Discontinued form: SOLN, Q8H, Start date: 11/26/11 0:00:00, Duration: 30 day, Stop date: 12/25/11 16:00:00 Lamictal 300 mg, 3 tab, Route: PO, Drug 11/26/2011 11/26/2011 Discontinued form: TAB, Daily, Start date: 11/26/11 9:00:00, Duration: 30 day, Stop date: 12/25/11 9:00:00 gabapentin 800 mg 800 mg, 2 cap, Route: PO, Drug 11/26/2011 11/26/2011 Discontinued oral tablet form: CAP, TID, Start date: 11/26/11 0:37:00, Duration: 30 day, Stop date: 12/25/11 17:00:00 Advair Diskus 100 1 inhalation, Route: INHALATION, 11/26/2011 11/26/2011 Discontinued mcg-50 mcg Drug Form: AERO, Q12H, Start date: inhalation powder 11/26/11 9:00:00, Duration: 30 day, Stop date: 12/25/11 21:00:00 atorvastatin 40 mg, 1 tab, Route: PO, Drug form: 11/26/2011 11/26/2011 Canceled TAB, QPM, Start date: 11/26/11 17:00:00, Duration: 30 day, Stop date: 12/25/11 17:00:00 Wellbutrin XL 300 mg, 2 tab, Route: PO, Drug 11/26/2011 11/26/2011 Discontinued form: ERTAB, Daily, Start date: 11/26/11 9:00:00, Duration: 30 day, Stop date: 12/25/11 9:00:00 Neurontin 800 mg, 2 cap, Route: PO, Drug 11/26/2011 11/26/2011 Completed form: CAP, ONCE, Start date: 11/26/11 1:14:00, Stop date: 11/26/11 1:14:00 Wellbutrin XL 300 300 mg, 1 tab, PO, Daily, 30 tab, 11/25/2011 Ordered mg/24 hours oral Substitution Allowed, ERTAB tablet, extended release Aciphex 20 mg oral 20 mg, 1 tab, PO, BID, 14 tab, 11/25/2011 Ordered enteric coated Substitution Allowed, ECTAB tablet VESIcare 10 mg oral 10 mg, 1 tab, PO, Daily, 30 tab, 11/25/2011 Ordered tablet Substitution Allowed, TAB Xopenex Substitution Allowed 11/25/2011 Ordered tramadol 300 mg oral 300 mg, 1 tab, PO, Daily, 30 tab, 11/25/2011 Ordered tablet, extended Substitution Allowed, ERTAB release Remicade Substitution Allowed 11/25/2011 Ordered Aciphex Substitution Allowed 11/25/2011 11/25/2011 Deleted Levemir 100 units/mL Substitution Allowed 11/25/2011 Ordered subcutaneous solution acetaminophen 650 mg, 2 tab, Route: MT, Drug 11/26/2011 11/26/2011 Discontinued form: TAB, Q4H, PRN Pain/Fever, Start date: 11/26/11 1:16:00, Duration: 30 day, Stop date: 12/26/11 1:15:00 ondansetron 4 mg, 1 tab, Route: PO, Drug form: 11/26/2011 11/26/2011 Discontinued TAB, Q6H, PRN Nausea & Vomiting, Start date: 11/26/11 1:16:00, Duration: 30 day, Stop date: 12/26/11 1:15:00 Lipitor 40 mg oral 40 mg, 1 tab, PO, Daily, 30 tab, 11/25/2011 11/26/2011 Discontinued tablet Substitution Allowed, TAB NovoLog Substitution Allowed 11/25/2011 Ordered VESIcare Substitution Allowed 11/25/2011 11/25/2011 Discontinued Vesicare 10mg 1 tab, PO, Daily, 30 tab, 11/25/2011 Ordered Substitution Allowed, TAB multivitamin Substitution Allowed, Maintenance 11/25/2011 Ordered Colace 100 mg oral 200 mg, 2 cap, PO, BID, 11/25/2011 Ordered capsule Substitution Allowed tramadol Substitution Allowed 11/25/2011 11/25/2011 Deleted gabapentin 200 mg, 2 cap, Route: PO, Drug 11/26/2011 11/26/2011 Completed form: CAP, ONCE, Start date: 11/26/11 1:14:00, Stop date: 11/26/11 1:14:00 Asacol 800 mg, TID, Substitution Allowed 11/25/2011 Ordered Tylenol with Codeine Substitution Allowed, Maintenance 11/25/2011 Ordered #3 oral tablet normal saline 0.9% 1,000 mL, Rate: 75 ml/hr, Infuse 11/26/2011 11/26/2011 Discontinued IV 1,000 mL over: 13.3 hr, Route: IV, Total Volume: 1,000, Start date: 11/26/11 1:13:00, Duration: 30 day, Stop date: 12/26/11 1:12:00 Toradol 15 mg/mL 15 mg, 1 mL, Route: IV, Drug form: 11/26/2011 11/26/2011 Discontinued injectable solution INJ, Q6H, PRN Pain, Start date: 11/26/11 1:16:00, Duration: 4 day, Stop date: 11/30/11 1:15:00 thiamine 100 mg, 1 tab, Route: PO, Drug 11/26/2011 11/26/2011 Discontinued form: TAB, Daily, Start date: 11/26/11 9:00:00, Duration: 30 day, Stop date: 12/25/11 9:00:00 multivitamin 1 tab, Route: PO, Drug Form: TAB, 11/26/2011 11/26/2011 Discontinued Daily, Start date: 11/26/11 9:00:00, Duration: 30 day, Stop date: 12/25/11 9:00:00 Neurontin 400 mg, 1 cap, Route: PO, Drug 11/26/2011 11/26/2011 Discontinued form: CAP, TID, Start date: 11/26/11 9:00:00, Duration: 30 day, Stop date: 12/25/11 17:00:00 Neurontin 200 mg, 2 cap, Route: PO, Drug 11/26/2011 11/26/2011 Discontinued form: CAP, TID, Start date: 11/26/11 9:00:00, Duration: 30 day, Stop date: 12/25/11 17:00:00 Vital Signs Most recent to oldest [Reference Range]: 1 2 3 Height 152.40 cm (11/25/2011 17:56:00) 167.64 cm (11/25/2011 17:34:00) Temperature Oral [96.4-99.1 DegF] 97.9 DegF (11/26/2011 08:00:00) 89.0 DegF *LOW* (11/26/2011 03:00:00) 98.0 DegF (11/25/2011 23:00:00) Systolic Blood Pressure [90-140 mmHg] 119 mmHg (11/26/2011 08:00:00) 135 mmHg (11/26/2011 03:00:00) 135 mmHg (11/25/2011 23:00:00) Diastolic Blood Pressure [60-90 mmHg] 73 mmHg (11/26/2011 08:00:00) 71 mmHg (11/26/2011 03:00:00) 73 mmHg (11/25/2011 23:00:00) Respiratory Rate [14-20 BRMIN] 16 BRMIN (11/26/2011 08:00:00) 20 BRMIN (11/26/2011 03:00:00) 20 BRMIN (11/25/2011 23:00:00) Peripheral Pulse Rate [60-100 bpm] 79 bpm (11/26/2011 08:00:00) 77 bpm (11/26/2011 03:00:00) 87 bpm (11/25/2011 23:00:00) Weight 70.455 kg (11/25/2011 17:56:00) 75.000 kg (11/25/2011 17:34:00) Results BEDSIDE GLUCOSE TESTING Most recent to oldest [Reference Range]: 1 2 Gluc POC Lifscn [65-110 mg/dL] 327 mg/dL 1 *HI* (11/26/2011 08:36:00) 291 mg/dL 2 *HI* (11/26/2011 06:39:00) Comment1 Notify RN/MD *NA* (11/26/2011 08:36:00) Notify RN/MD *NA* (11/26/2011 06:39:00) 1Interpretive Data: Upper Reportable Limit: 200 mg/dL. 2Interpretive Data: Upper Reportable Limit: 200 mg/dL. CHEMISTRY Most recent to oldest [Reference Range]: 1 2 Sodium Lvl [135-145 mEq/L] 137 mEq/L (11/26/2011 08:01:00) 136 mEq/L (11/25/2011 19:17:00) Potassium Lvl [3.5-5.1 mEq/L] 4.4 mEq/L (11/26/2011 08:01:00) 4.5 mEq/L (11/25/2011 19:17:00) Chloride Lvl [95-109 mEq/L] 103 mEq/L (11/26/2011 08:01:00) 98 mEq/L (11/25/2011 19:17:00) CO2 [24-32 mEq/L] 23 mEq/L *LOW* (11/26/2011 08:01:00) 34 mEq/L *HI* (11/25/2011 19:17:00) AGAP [10.0-20.0 mEq/L] 15.4 mEq/L (11/26/2011 08:01:00) 8.5 mEq/L *LOW* (11/25/2011 19:17:00) Creatinine Lvl [0.5-1.4 mg/dL] 0.7 mg/dL (11/26/2011 08:01:00) 0.9 mg/dL (11/25/2011 19:17:00) BUN [7-22 mg/dL] 16 mg/dL (11/26/2011 08:01:00) 18 mg/dL (11/25/2011 19:17:00) B/C Ratio [6-25] 20 (11/25/2011 19:17:00) Glucose Lvl 295 mg/dL 3 *NA* (11/26/2011 08:01:00) 348 mg/dL 4 *NA* (11/25/2011 19:17:00) Total Protein [6.4-8.4 g/dL] 7.6 g/dL (11/25/2011 19:17:00) Albumin Lvl [3.5-5.0 g/dL] 3.9 g/dL (11/25/2011 19:17:00) Globulin [2.0-4.0 g/dL] 3.7 g/dL (11/25/2011 19:17:00) A/G Ratio [0.7-1.6] 1.1 (11/25/2011 19:17:00) Calcium Lvl [8.5-10.5 mg/dL] 8.0 mg/dL *LOW* (11/26/2011 08:01:00) 9.0 mg/dL (11/25/2011 19:17:00) ALT [0-65 U/L] 45 U/L (11/25/2011 19:17:00) AST [0-37 U/L] 26 U/L (11/25/2011 19:17:00) Alk Phos [39-136 U/L] 143 U/L *HI* (11/25/2011 19:17:00) Bili Total [0.2-1.3 mg/dL] 0.2 mg/dL (11/25/2011 19:17:00) 3Interpretive Data: Reference Ranges : 0 - 7 days : 41 - 90 mg/dL7 days - 150 yrs : 70 - 99 mg/dL (fasting), based on the clinical recommendations of the [place] [employer]. 4Interpretive Data: Reference Ranges : 0 - 7 days : 41 - 90 mg/dL7 days - 150 yrs : 70 - 99 mg/dL (fasting), based on the clinical recommendations of the [place] [employer]. HEMATOLOGY Most recent to oldest [Reference Range]: 1 2 WBC [3.7-10.4 K/CMM] 6.3 K/CMM (11/26/2011 08:01:00) 7.2 K/CMM (11/25/2011 19:17:00) RBC [4.20-5.40 M/CMM] 3.70 M/CMM *LOW* (11/26/2011 08:01:00) 4.17 M/CMM *LOW* (11/25/2011 19:17:00) Hgb [12.0-16.0 g/dL] 11.2 g/dL *LOW* (11/26/2011 08:01:00) 12.5 g/dL (11/25/2011 19:17:00) Hct [36.0-48.0 %] 32.5 % *LOW* (11/26/2011 08:01:00) 36.3 % (11/25/2011 19:17:00) MCV [81.0-99.0 fL] 87.8 fL (11/26/2011 08:01:00) 87.0 fL (11/25/2011 19:17:00) MCH [27.0-31.0 pg] 30.2 pg (11/26/2011 08:01:00) 30.1 pg (11/25/2011 19:17:00) MCHC [32.0-36.0 g/dL] 34.4 g/dL (11/26/2011 08:01:00) 34.6 g/dL (11/25/2011 19:17:00) RDW [11.5-14.5 %] 14.3 % (11/26/2011 08:01:00) 14.7 % *HI* (11/25/2011 19:17:00) Platelet [133-450 K/CMM] 270 K/CMM (11/26/2011 08:01:00) 337 K/CMM (11/25/2011 19:17:00) MPV [7.4-10.4 fL] 6.3 fL *LOW* (11/26/2011 08:01:00) 6.7 fL *LOW* (11/25/2011 19:17:00) Segs [45.0-75.0 %] 58.6 % (11/26/2011 08:01:00) 63.3 % (11/25/2011 19:17:00) Lymphocytes [20.0-40.0 %] 30.4 % (11/26/2011 08:01:00) 28.4 % (11/25/2011 19:17:00) Monocytes [2.0-12.0 %] 8.4 % (11/26/2011 08:01:00) 7.5 % (11/25/2011 19:17:00) Eosinophils [0.0-4.0 %] 2.3 % (11/26/2011 08:01:00) 0.6 % (11/25/2011 19:17:00) Basophils [0.0-1.0 %] 0.3 % (11/26/2011 08:01:00) 0.2 % (11/25/2011 19:17:00) Segs-Bands # [1.5-8.1 K/CMM] 3.7 K/CMM (11/26/2011 08:01:00) 4.5 K/CMM (11/25/2011 19:17:00) Lymphocytes # [1.0-5.5 K/CMM] 1.9 K/CMM (11/26/2011 08:01:00) 2.0 K/CMM (11/25/2011 19:17:00) Monocytes # [0.0-0.8 K/CMM] 0.5 K/CMM (11/26/2011 08:01:00) 0.5 K/CMM (11/25/2011 19:17:00) Eosinophils # [0.0-0.5 K/CMM] 0.1 K/CMM (11/26/2011 08:01:00) 0.0 K/CMM (11/25/2011 19:17:00) Basophils # [0.0-0.2 K/CMM] 0.0 K/CMM (11/26/2011 08:01:00) 0.0 K/CMM (11/25/2011 19:17:00) RBC Morph Normal (11/26/2011 08:01:00) Plt Morph Normal (11/26/2011 08:01:00) PT [12.0-14.7 seconds] 11.5 seconds *LOW* (11/25/2011 19:17:00) INR [0.85-1.17] 0.84 5 *LOW* (11/25/2011 19:17:00) PTT [22.9-35.8 seconds] 27.7 seconds 6 (11/25/2011 19:17:00) 5Interpretive Data: RECOMMENDED RANGES FOR PROTIME INR: 2.0-3.0 for most medical and surgical thromboembolic states. 2.5-3.5 for artificial heart valves and recurrent embolism.INR SHOULD BE USED ONLY FOR PATIENTS ON STABLE ANTICOAGULANT THERAPY. 6Interpretive Data: Heparin Therapeutic Range: 57 - 92 Seconds Microbiology Reports PROCEDURE:Culture: Urine STATUS: In Progress BODY SITE: COLLECTED DATE/TIME: 11/26/2011 09:00:00 SOURCE: Urine, Clean Catch FREE TEXT SOURCE: PRELIMINARY REPORTS Preliminary Report No Growth; Holding
--- OUTSIDE RECORDS SUMMARY | 2019-03-22 01:54 | XMS REPORT | CCD ---
Author Author Auto Generated Organization [facility] Address Unknown Phone Unavailable Care Team Providers Care Project Development Leader Name Role Phone lAexi Leyva RP Allergies, Adverse Reactions, Alerts Substance Reaction Status Remicade Active Problem List Condition Effective Dates Status Appendectomy Active Bloody stool 05/05/2011 Active Colitis 05/18/2011 Active Depressed Active Diabetic nephropathy Active Diarrhea Active Hysterectomy Active Nausea Active Sepsis Active Shortness of breath < 04/15/2011 Resolved
--- OUTSIDE RECORDS SUMMARY | 2019-03-22 01:54 | XMS REPORT | CCD ---
Author Author Auto Generated Organization [facility] Address Unknown Phone Unavailable Care Team Providers Care Lead Solutions Architect Name Role Phone ArthurThor RP Allergies, Adverse Reactions, Alerts Substance Reaction Status NKDA Active Problem List Condition Effective Dates Status Bloody stool 05/05/2011 Active Colitis 05/18/2011 Active Depressed Active Diabetic nephropathy Active Diarrhea Active Nausea Active Sepsis Active Shortness of breath < 04/15/2011 Resolved Vital Signs Most recent to oldest [Reference Range]: 1 Height 152.40 cm (11/11/2011 16:28:00) Systolic Blood Pressure [90-140 mmHg] 112 mmHg (11/11/2011 16:28:00) Diastolic Blood Pressure [60-90 mmHg] 71 mmHg (11/11/2011 16:28:00) Peripheral Pulse Rate [60-100 bpm] 83 bpm (11/11/2011 16:28:00) Weight 71.818 kg (11/11/2011 16:28:00)
--- OUTSIDE RECORDS SUMMARY | 2019-03-22 01:54 | XMS REPORT | CCD ---
Author Author Auto Generated Organization [facility] Address Unknown Phone Unavailable Care Team Providers Care Engineering Program Analyst Name Role Phone Thor Gibson RP Allergies, Adverse Reactions, Alerts Substance Reaction Status NKDA Canceled Remicade Active Problem List Condition Effective Dates Status Appendectomy Active Bloody stool 05/05/2011 Active Colitis 05/18/2011 Active Depressed Active Diabetic nephropathy Active Diarrhea Active Hysterectomy Active Nausea Active Sepsis Active Shortness of breath < 04/15/2011 Resolved
--- OUTSIDE RECORDS SUMMARY | 2019-03-22 01:54 | XMS REPORT | Summary of Care ---
Author Organization Unknown Address Unknown Phone Unavailable Encounter HQ Encntr_katerina(FIN) [id number] Date(s): 03/16/14 - 04/14/14 FÉLIX Mcelroy Discharge Disposition: Home Physician Attending: Rogers De La Cruz MD Reason for Visit RT KNEE Problem List Condition Effective Dates Status Health Status Informant Appendectomy(Confirm Active ed) Bloody 05/05/11 Active stool(Confirmed) Colitis(Confirmed) 05/18/11 Active Depressed(Confirmed) Active Diabetic Active nephropathy(Confirme d) Diarrhea(Confirmed) Active Hysterectomy(Confirm Active ed) Nausea(Confirmed) Active Sepsis(Confirmed) Active Shortness of < 04/15/11 Resolved breath(Confirmed) Allergies, Adverse Reactions, Alerts Substance Reaction Severity Status Remicade Active Medications No data available for this section Medications Administered During Your Visit No data available for this section Immunizations No data available for this section Social History Social History Type Response
--- OUTSIDE RECORDS SUMMARY | 2019-03-22 01:54 | XMS REPORT | CCD ---
Author Author Auto Generated Organization [facility] Address Unknown Phone Unavailable Care Team Providers Care Tourist Home Keeper Name Role Phone Rogers De La Cruz RP Allergies, Adverse Reactions, Alerts Substance Reaction Status NKDA Active Problem List Condition Effective Dates Status Appendectomy Active Bloody stool 05/05/2011 Active Colitis 05/18/2011 Active Depressed Active Diabetic nephropathy Active Diarrhea Active Hysterectomy Active Nausea Active Sepsis Active Shortness of breath < 04/15/2011 Resolved
--- OUTSIDE RECORDS SUMMARY | 2019-03-22 01:54 | XMS REPORT | Summary of Care ---
Author Organization Unknown Address Unknown Phone Unavailable Encounter HQ Neto(ANAYELI) [id number] Date(s): 07/17/14 - 07/18/14 [facility] [address] [address] - [facility] Discharge Disposition: Home Physician Attending: Filomena Rodriguez MD Physician Admitting: Filomena Rodriguez MD Reason for Visit DIZZINESS, WEAKNESS Vital Signs 1 2 3 Most recent to oldest [Reference Range]: 152.4 cm (07/17/14 6:25 PM) 154.94 cm (07/17/14 2:27 PM) Height 98.8 DegF (07/18/14 12:00 PM) 97.9 DegF (07/18/14 8:00 AM) 97.9 DegF (07/18/14 4:34 AM) Temperature Oral [96.4-99.1 DegF] 137 mmHg (07/18/14 12:00 PM) 120 mmHg (07/18/14 8:00 AM) 123 mmHg (07/18/14 4:34 AM) Systolic Blood Pressure [90-140 mmHg] 73 mmHg (07/18/14 12:00 PM) 70 mmHg (07/18/14 8:00 AM) 71 mmHg (07/18/14 4:34 AM) Diastolic Blood Pressure [60-90 mmHg] 18 BRMIN (07/18/14 12:00 PM) 18 BRMIN (07/18/14 8:00 AM) 17 BRMIN (07/18/14 4:34 AM) Respiratory Rate [14-20 BRMIN] 88 bpm (07/18/14 12:00 PM) 82 bpm (07/18/14 8:00 AM) 71 bpm (07/18/14 4:34 AM) Peripheral Pulse Rate [60-100 bpm] 62.727 kg (07/17/14 6:25 PM) 62.727 kg (07/17/14 2:27 PM) Weight 27.01 m2 (07/17/14 6:25 PM) 26.13 m2 (07/17/14 2:27 PM) Body Mass Index Problem List Condition Effective Dates Status Health Status Informant Appendectomy(Confirm Active ed) Bloody 05/05/11 Active stool(Confirmed) Colitis(Confirmed) 05/18/11 Active Depressed(Confirmed) Active Diabetes(Confirmed) Resolved Diabetic Active nephropathy(Confirme d) Diarrhea(Confirmed) Active Hysterectomy(Confirm Active ed) Nausea(Confirmed) Active Pinched Resolved nerve(Confirmed)1 Sepsis(Confirmed) Active Shortness of < 04/15/11 Resolved breath(Confirmed) 1l4/l5 Allergies, Adverse Reactions, Alerts Substance Reaction Severity Status Remicade Active Medications acetaminophen 650 mg, 2 tab, Route: PO, Drug form: TAB, Q4H, Dosing Weight 62.727, kg, PRN Davidson n 1-3/Temp > 99.5 F, Start date: 07/17/14 18:16:00, Duration: 30 day, Stop date: 08/16/14 18:15:00 Notes: Do not exceed 4 gm/day. (Same as: Tylenol) Start Date: 07/17/14 Stop Date: 07/18/14 Status: Discontinued Aciphex 20 mg, Route: PO, Drug form: ECTAB, BID, Dosing Weight 62.727, kg, Start date: 1 9:00:00, Duration: 30 day, Stop date: 08/16/14 17:00:00 Start Date: 07/18/14 Stop Date: 07/17/14 Status: Deleted Advair Diskus 250 mcg-50 mcg inhalation powder 1 puff, INHALATION, BID, # 28 ea, 0 Refill(s) Start Date: 07/17/14 Status: Ordered Advair Diskus 250 mcg-50 mcg inhalation powder 1 puff, Route: INHALATION, Drug Form: AERO, Dosing Weight 62.727, kg, BID, Start date: 07/18/14 9:00:00, Duration: 30 day, Stop date: 08/16/14 17:00:00 Notes: (Same as: Advair) Start Date: 07/18/14 Stop Date: 07/18/14 Status: Discontinued Ambien 5 mg, 1 tab, Route: PO, Drug form: TAB, Bedtime, Dosing Weight 62.727, kg, PRN a s needed for sleep, Priority: NOW, Start date: 07/17/14 21:33:00, Duration: 30 d ay, Stop date: 08/16/14 21:32:00 Notes: (Same As: Ambien) Start Date: 07/17/14 Stop Date: 07/18/14 Status: Discontinued Asacol 800 mg, 2 cap, Route: PO, Drug form: DRC, TID, Dosing Weight 62.727, kg, Start d ate: 07/17/14 20:50:00, Stop date: 08/16/14 17:00:00 Notes: (Same as: Delzicol) Start Date: 07/17/14 Stop Date: 07/18/14 Status: Discontinued aspirin 81 mg tablet, enteric coated 81 mg=1 tab, PO, Daily, # 0 tab, 0 Refill(s) Start Date: 07/17/14 Status: Ordered aspirin 81 mg tablet, enteric coated 81 mg, Route: PO, Drug form: ECTAB, Daily, Dosing Weight 62.727, kg, Start date: 07/18/14 9:00:00, Duration: 30 day, Stop date: 08/16/14 9:00:00 Start Date: 07/18/14 Stop Date: 07/17/14 Status: Deleted aspirin 81 mg tablet, enteric coated 81 mg, 1 tab, Route: PO, Drug form: ECTAB, Daily, Dosing Weight 62.727, kg, Star t date: 07/17/14 17:12:00, Duration: 30 day, Stop date: 08/16/14 9:00:00 Notes: Do not crush or chew.(Same As: Ecotrin) Start Date: 07/17/14 Stop Date: 07/18/14 Status: Discontinued buPROPion 450 mg, 3 tab, Route: PO, Drug form: ERTAB, Daily, Dosing Weight 62.727, kg, Sta rt date: 07/18/14 9:00:00, Duration: 30 day, Stop date: 08/16/14 9:00:00 Notes: (Same as: Wellbutrin XL)"Do Not Crush" Start Date: 07/18/14 Stop Date: 07/18/14 Status: Discontinued buPROPion 450 mg/24 hours (XL) oral tablet, extended release 450 mg=1 tab, PO, Daily, 0 Refill(s) Start Date: 07/17/14 Status: Ordered Dextrose 50% Syringe 12.5 gm, 25 mL, Route: IVP, Drug Form: INJ, Dosing Weight 62.727, kg, PRN, PRN B lood Glucose Results, Start date: 07/17/14 18:15:00, Duration: 30 day, Stop date : 08/16/14 17:14:00 Start Date: 07/17/14 Stop Date: 07/18/14 Status: Discontinued Dextrose 50% Syringe 25 gm, 50 mL, Route: IVP, Drug Form: INJ, Dosing Weight 62.727, kg, PRN, PRN Blo od Glucose Results, Start date: 07/17/14 18:15:00, Duration: 30 day, Stop date: 08/16/14 17:14:00 Start Date: 07/17/14 Stop Date: 07/18/14 Status: Discontinued gabapentin 400 mg oral capsule 400 mg=1 cap, PO, TID, total [id number] daily, # 120 cap, 0 Refill(s) Special Instructions: total [id number] daily Start Date: 07/17/14 Status: Ordered gabapentin 400 mg oral capsule 400 mg, 1 cap, Route: PO, Drug form: CAP, TID, Dosing Weight 62.727, kg, Start d ate: 07/18/14 9:00:00, Duration: 30 day, Stop date: 08/16/14 17:00:00 Notes: (Same as: Neurontin) Start Date: 07/18/14 Stop Date: 07/18/14 Status: Discontinued gabapentin 600 mg oral tablet 600 mg=1 tab, PO, TID, # 270 tab, 0 Refill(s) Start Date: 07/17/14 Status: Ordered gabapentin 600 mg oral tablet 600 mg, 2 cap, Route: PO, Drug form: CAP, TID, Dosing Weight 62.727, kg, Start d ate: 07/18/14 9:00:00, Duration: 30 day, Stop date: 08/16/14 17:00:00 Notes: (Same as: Neurontin) Start Date: 07/18/14 Stop Date: 07/18/14 Status: Discontinued glucagon 1 mg, Route: IM, Drug form: PDR/INJ, PRN, Dosing Weight 62.727, kg, PRN Blood Gl ucose Results, Start date: 07/17/14 18:15:00, Duration: 30 day, Stop date: 08/16 17:14:00 Start Date: 07/17/14 Stop Date: 07/18/14 Status: Discontinued Humira Q14D, 0 Refill(s) Start Date: 07/17/14 Status: Ordered influenza virus vaccine, inactivated 0.5 ml, Route: IM, Drug Form: SUSP, Daily, Start date: 07/18/14 9:00:00, Duratio n: 1 doses or times, Stop date: 07/18/14 9:00:00 Notes: (Same as: Fluzone Quadrivalent) Start Date: 07/18/14 Stop Date: 07/18/14 Status: Completed insulin aspart 3 unit, 0.03 mL, Route: SUB-Q, Drug form: SOLN, TID-Before Meals, Dosing Weight 62.727, kg, PRN Blood Glucose Results, Start date: 07/17/14 18:15:00, Duration: 30 day, Stop date: 08/16/14 18:14:00 Notes: Roll in palms of hands gently; Do not shake vigorously. (Same as: NovoLO G)"single patient use only" Stable for 28 days at room temperature.Expires in _ ____ days from Date Start Date: 07/17/14 Stop Date: 07/18/14 Status: Discontinued insulin aspart 4 unit, 0.04 mL, Route: SUB-Q, Drug form: SOLN, TID-Before Meals, Dosing Weight 62.727, kg, PRN Blood Glucose Results, Start date: 07/17/14 18:15:00, Duration: 30 day, Stop date: 08/16/14 18:14:00 Notes: Roll in palms of hands gently; Do not shake vigorously. (Same as: NovoLO G)"single patient use only" Stable for 28 days at room temperature.Expires in _ ____ days from Date Start Date: 07/17/14 Stop Date: 07/18/14 Status: Discontinued insulin aspart 2 unit, 0.02 mL, Route: SUB-Q, Drug form: SOLN, TID-Before Meals, Dosing Weight 62.727, kg, PRN Blood Glucose Results, Start date: 07/17/14 18:15:00, Duration: 30 day, Stop date: 08/16/14 18:14:00 Notes: Roll in palms of hands gently; Do not shake vigorously. (Same as: NovoLO G)"single patient use only" Stable for 28 days at room temperature.Expires in _ ____ days from Date Start Date: 07/17/14 Stop Date: 07/18/14 Status: Discontinued insulin aspart 5 unit, 0.05 mL, Route: SUB-Q, Drug form: SOLN, TID-Before Meals, Dosing Weight 62.727, kg, PRN Blood Glucose Results, Start date: 07/17/14 18:15:00, Duration: 30 day, Stop date: 08/16/14 18:14:00 Notes: Roll in palms of hands gently; Do not shake vigorously. (Same as: NovoLO G)"single patient use only" Stable for 28 days at room temperature.Expires in _ ____ days from Date Start Date: 07/17/14 Stop Date: 07/18/14 Status: Discontinued insulin aspart 1 unit, 0.01 mL, Route: SUB-Q, Drug form: SOLN, TID-Before Meals, Dosing Weight 62.727, kg, PRN Blood Glucose Results, Start date: 07/17/14 18:15:00, Duration: 30 day, Stop date: 08/16/14 18:14:00 Notes: Roll in palms of hands gently; Do not shake vigorously. (Same as: NovoLO G)"single patient use only" Stable for 28 days at room temperature.Expires in _ ____ days from Date Start Date: 07/17/14 Stop Date: 07/18/14 Status: Discontinued LaMICtal XR 300 mg, Route: PO, Drug form: ERTAB, Daily, Dosing Weight 62.727, kg, Start date : 07/18/14 9:00:00, Duration: 30 day, Stop date: 08/16/14 9:00:00 Start Date: 07/18/14 Stop Date: 07/17/14 Status: Deleted LaMICtal XR 300 mg oral tablet, extended release 300 mg=1 tab, PO, Daily, 0 Refill(s) Start Date: 07/17/14 Status: Ordered Lamotrigine XR 300mg PO daily-Use pt's own med Lamotrigine XR 300mg PO daily-Use pt's own med, 300 mg, Drug form: MISC, Route : PO, Daily, 07/18/14 9:00:00, Duration: 30 day, Stop date: 08/16/14 9:00:00 Start Date: 07/18/14 Stop Date: 07/18/14 Status: Discontinued Levemir 15 unit, 0.15 mL, Route: SUB-Q, Drug form: INJ, ONCE, Dosing Weight 62.727, kg, Priority: NOW, Start date: 07/17/14 21:34:00, Stop date: 07/17/14 21:34:00 Notes: Same as Levemir "single patient use only" Start Date: 07/17/14 Stop Date: 07/17/14 Status: Completed Levemir 30 unit, 0.3 mL, Route: SUB-Q, Drug form: INJ, QAM, Dosing Weight 62.727, kg, St art date: 07/18/14 9:00:00, Duration: 30 day, Stop date: 08/16/14 9:00:00 Notes: Same as Levemir "single patient use only" Start Date: 07/18/14 Stop Date: 07/18/14 Status: Canceled Levemir 30 unit, 0.3 mL, Route: SUB-Q, Drug form: INJ, Q12H, Dosing Weight 62.727, kg, S tart date: 07/18/14 9:00:00, Duration: 30 day, Stop date: 08/16/14 21:00:00 Notes: Same as Levemir "single patient use only" Start Date: 07/18/14 Stop Date: 07/18/14 Status: Discontinued Lipitor 40 mg, 1 tab, Route: PO, Drug form: TAB, QPM, Dosing Weight 62.727, kg, Start da te: 07/18/14 17:00:00, Duration: 30 day, Stop date: 08/16/14 17:00:00 Notes: (Same as: Lipitor) Start Date: 07/18/14 Stop Date: 07/18/14 Status: Canceled Lipitor 40 mg oral tablet 40 mg=1 tab, PO, QPM, # 30 tab, 0 Refill(s) Start Date: 07/17/14 Status: Ordered montelukast 10 mg, 1 tab, Route: PO, Drug form: TAB, Daily, Dosing Weight 62.727, kg, Start date: 07/18/14 9:00:00, Duration: 30 day, Stop date: 08/16/14 9:00:00 Notes: (Same as:Singulair) Start Date: 07/18/14 Stop Date: 07/18/14 Status: Discontinued montelukast 10 mg oral tablet 10 mg=1 tab, PO, Daily, # 30 tab, 0 Refill(s) Start Date: 07/17/14 Status: Ordered multivitamin 1 tab, Route: PO, Drug Form: TAB, Dosing Weight 62.727, kg, Daily, Start date: 9:00:00, Duration: 30 day, Stop date: 08/16/14 9:00:00 Notes: (Same as:One Tab Daily, Tab-A-Kobe + Beta Carotene) Give with food. Start Date: 07/18/14 Stop Date: 07/18/14 Status: Discontinued Protonix 40 mg, 1 tab, Route: PO, Drug form: ECTAB, Before Breakfast, Start date: 4 7:30:00, Duration: 30 day, Stop date: 08/16/14 7:30:00 Notes: Tablet should not be chewed or crushed.(Same as: Protonix) Start Date: 07/18/14 Stop Date: 07/18/14 Status: Discontinued Saline Flush 0.9% 10 ml, Route: IVP, Drug Form: INJ, Dosing Weight 62.727, kg, Q12H, Start date: 21:00:00, Duration: 30 day, Stop date: 08/16/14 9:00:00 Notes: (Same as: BD Posiflush) Start Date: 07/17/14 Stop Date: 07/18/14 Status: Discontinued Saline Flush 0.9% 10 ml, Route: IVP, Drug Form: INJ, Dosing Weight 62.727, kg, PRN, PRN Line Flush , Start date: 07/17/14 18:16:00, Duration: 30 day, Stop date: 08/16/14 17:15:00 Notes: (Same as: BD Posiflush) Start Date: 07/17/14 Stop Date: 07/18/14 Status: Discontinued Synthroid 150 microgram, 1 tab, Route: PO, Drug form: TAB, Daily, Dosing Weight 62.727, kg , Start date: 07/18/14 6:30:00, Duration: 30 day, Stop date: 08/16/14 6:30:00 Notes: Take 1 hour before or 2 hours after meal; Enteral feeds may interefere wi th the absorption of this medication. (Same as: Levothroid) Start Date: 07/18/14 Stop Date: 07/18/14 Status: Discontinued Synthroid 150 mcg (0.15 mg) oral tablet 150 microgram=1 tab, PO, Daily, # 30 tab, 0 Refill(s) Start Date: 07/17/14 Status: Ordered thiamine 100 mg, 1 tab, Route: PO, Drug form: TAB, Daily, Dosing Weight 62.727, kg, Start date: 07/18/14 9:00:00, Duration: 30 day, Stop date: 08/16/14 9:00:00 Notes: (Same As: Vitamin B1) Start Date: 07/18/14 Stop Date: 07/18/14 Status: Discontinued thiamine 100 mg oral tablet 100 mg=1 tab, PO, Daily, # 7 tab, 0 Refill(s) Start Date: 07/17/14 Stop Date: 07/24/14 Status: Ordered Tylenol with Codeine #3 oral tablet 1 tab, Route: PO, Drug Form: TAB, Dosing Weight 62.727, kg, Q6H, PRN Pain Score 4-6, Start date: 07/17/14 21:34:00, Duration: 30 day, Stop date: 08/16/14 21:33: 00 Notes: Do not exceed 4gm/day of acetaminophen. (Same as: Tylenol with Codeine # 3) Start Date: 07/17/14 Stop Date: 07/18/14 Status: Discontinued Xopenex HFA 45 mcg/inh inhalation aerosol with adapter 2 puff, INHALATION, Q4H, as needed for wheezing, 0 Refill(s) Start Date: 07/17/14 Status: Ordered Results ELECTROLYTES Most recent to 1 2 oldest [Reference Range]: Sodium Lvl [135-145 138 mEq/L 136 mEq/L mEq/L] (07/18/14 4:18 AM) (07/17/14 3:08 PM) Potassium Lvl 4.4 mEq/L 4.0 mEq/L [3.5-5.1 mEq/L] (07/18/14 4:18 AM) (07/17/14 3:08 PM) Chloride Lvl [95-109 103 mEq/L 99 mEq/L mEq/L] (07/18/14 4:18 AM) (07/17/14 3:08 PM) CO2 [24-32 mEq/L] 28 mEq/L 31 mEq/L (07/18/14 4:18 AM) (07/17/14 3:08 PM) AGAP [10.0-20.0 11.4 mEq/L 10.0 mEq/L mEq/L] (07/18/14 4:18 AM) (07/17/14 3:08 PM) CHEM PANEL Most recent to 1 2 oldest [Reference Range]: Creatinine Lvl 0.8 mg/dL 0.8 mg/dL [0.5-1.4 mg/dL] (07/18/14 4:18 AM) (07/17/14 3:08 PM) eGFR 83 mL/min/1.73m2 1 83 mL/min/1.73m2 2 *NA* *NA* (07/18/14 4:18 AM) (07/17/14 3:08 PM) BUN [7-22 mg/dL] 12 mg/dL 13 mg/dL (07/18/14 4:18 AM) (07/17/14 3:08 PM) B/C Ratio [6-25] 15 16 (07/18/14 4:18 AM) (07/17/14 3:08 PM) Glucose Lvl [70-99 228 mg/dL 3 95 mg/dL 4 mg/dL] *HI* (07/17/14 3:08 PM) (07/18/14 4:18 AM) Total Protein 6.2 g/dL 8.0 g/dL [6.4-8.4 g/dL] *LOW* (07/17/14 3:08 PM) (07/18/14 4:18 AM) Albumin Lvl [3.5-5.0 3.3 g/dL 4.1 g/dL g/dL] *LOW* (07/17/14 3:08 PM) (07/18/14 4:18 AM) Globulin [2.0-4.0 2.9 g/dL 3.9 g/dL g/dL] (07/18/14 4:18 AM) (07/17/14 3:08 PM) A/G Ratio [0.7-1.6] 1.1 1.1 (07/18/14 4:18 AM) (07/17/14 3:08 PM) Calcium Lvl 9.2 mg/dL 9.4 mg/dL [8.5-10.5 mg/dL] (07/18/14 4:18 AM) (07/17/14 3:08 PM) Magnesium Lvl 2.3 mg/dL [1.8-2.4 mg/dL] (07/17/14 3:08 PM) ALT [0-65 unit/L] 40 unit/L 47 unit/L (07/18/14 4:18 AM) (07/17/14 3:08 PM) AST [0-37 unit/L] 28 unit/L 36 unit/L (07/18/14 4:18 AM) (07/17/14 3:08 PM) Alk Phos [39-136 103 unit/L 128 unit/L unit/L] (07/18/14 4:18 AM) (07/17/14 3:08 PM) Bili Total [0.2-1.3 0.6 mg/dL 0.3 mg/dL mg/dL] (07/18/14 4:18 AM) (07/17/14 3:08 PM) 1Result Comment: The eGFR is calculated using [...] from the National Kidney Disease Education Program ( NKDEP) which additionally recommends that when the eGFR is used in patients with extremes of body mass index for purposes of drug dosing, the eGFR should be mul tiplied by the estimated BMI. 2Result Comment: The eGFR is calculated using [...] from the National Kidney Disease Education Program ( NKDEP) which additionally recommends that when the eGFR is used in patients with extremes of body mass index for purposes of drug dosing, the eGFR should be mul tiplied by the estimated BMI. 3Interpretive Data: Adult reference range values reflect the clinical guidelines of the [place] [employer]. 4Interpretive Data: Adult reference range values reflect the clinical guidelines of the [place] [employer]. CARDIAC ENZYMES Most recent to 1 2 oldest [Reference Range]: Total CK [12-191 301 unit/L unit/L] *HI* (07/17/14 3:08 PM) CK MB [0.5-3.6 5.2 ng/mL ng/mL] *HI* (07/17/14 3:08 PM) CK MB Index 1.7 [0.0-2.5] (07/17/14 3:08 PM) Troponin-I <0.02 ng/mL [0.00-0.40 ng/mL] (07/17/14 3:08 PM) LIPIDS Most recent to 1 2 oldest [Reference Range]: CHD Risk [3.90-5.80] 1.92 *LOW* (07/18/14 4:18 AM) Chol [<=199 mg/dL] 182 mg/dL (07/18/14 4:18 AM) Trig [<=149 mg/dL] 113 mg/dL (07/18/14 4:18 AM) HDL [>=61 mg/dL] 95 mg/dL (07/18/14 4:18 AM) LDL (Calculated) 64 mg/dL [<=99 mg/dL] (07/18/14 4:18 AM) VLDL 23 *NA* (07/18/14 4:18 AM) URINE AND STOOL Most recent to 1 2 oldest [Reference Range]: UA Turbidity [Clear] Clear (07/17/14 5:51 PM) UA Color Ltyellow *NA* (07/17/14 5:51 PM) UA pH [5.0-8.0] 7.0 (07/17/14 5:51 PM) UA Spec Grav 1.010 [<=1.030] (07/17/14 5:51 PM) UA Glucose [Negative 150 mg/dL mg/dL] *ABN* (07/17/14 5:51 PM) UA Blood [Negative] Negative (07/17/14 5:51 PM) UA Ketones [Negative Negative mg/dL mg/dL] *NA* (07/17/14 5:51 PM) UA Protein [Negative Negative mg/dL mg/dL] (07/17/14 5:51 PM) UA Urobilinogen <=1.0 mg/dL [0.1-1.0 mg/dL] *NA* (07/17/14 5:51 PM) UA Bili [Negative] Negative *NA* (07/17/14 5:51 PM) UA Leuk Est Small [Negative] *ABN* (07/17/14 5:51 PM) UA Nitrite Negative [Negative] (07/17/14 5:51 PM) UA WBC [0-5 /HPF] 3 /HPF (07/17/14 5:51 PM) UA Sq Epi [Few /LPF] Occasional /LPF *NA* (07/17/14 5:51 PM) UA Trans Epi [<=0 3 /LPF /LPF] *HI* (07/17/14 5:51 PM) HEMATOLOGY Most recent to 1 2 oldest [Reference Range]: WBC [3.7-10.4 K/CMM] 7.0 K/CMM 6.7 K/CMM (07/18/14 4:18 AM) (07/17/14 3:08 PM) RBC [4.20-5.40 4.67 M/CMM 4.96 M/CMM M/CMM] (07/18/14 4:18 AM) (07/17/14 3:08 PM) Hgb [12.0-16.0 g/dL] 14.2 g/dL 14.5 g/dL (07/18/14 4:18 AM) (07/17/14 3:08 PM) Hct [36.0-48.0 %] 40.9 % 43.2 % (07/18/14 4:18 AM) (07/17/14 3:08 PM) MCV [80.0-98.0 fL] 87.5 fL 87.1 fL (07/18/14 4:18 AM) (07/17/14 3:08 PM) MCH [27.0-31.0 pg] 30.4 pg 29.3 pg (07/18/14 4:18 AM) (07/17/14 3:08 PM) MCHC [32.0-36.0 34.8 g/dL 33.7 g/dL g/dL] (07/18/14 4:18 AM) (07/17/14 3:08 PM) RDW [11.5-14.5 %] 13.1 % 13.0 % (07/18/14 4:18 AM) (07/17/14 3:08 PM) Platelet [133-450 269 K/CMM 315 K/CMM K/CMM] (07/18/14 4:18 AM) (07/17/14 3:08 PM) MPV [7.4-10.4 fL] 6.5 fL 6.7 fL *LOW* *LOW* (07/18/14 4:18 AM) (07/17/14 3:08 PM) Segs [45.0-75.0 %] 43.4 % 34.3 % *LOW* *LOW* (07/18/14 4:18 AM) (07/17/14 3:08 PM) Lymphocytes 43.9 % 54.6 % [20.0-40.0 %] *HI* *HI* (07/18/14 4:18 AM) (07/17/14 3:08 PM) Monocytes [2.0-12.0 10.0 % 8.4 % %] (07/18/14 4:18 AM) (07/17/14 3:08 PM) Eosinophils [0.0-4.0 2.0 % 2.0 % %] (07/18/14 4:18 AM) (07/17/14 3:08 PM) Basophils [0.0-1.0 0.7 % 0.7 % %] (07/18/14 4:18 AM) (07/17/14 3:08 PM) Segs-Bands # 3.0 K/CMM 2.3 K/CMM [1.5-8.1 K/CMM] (07/18/14 4:18 AM) (07/17/14 3:08 PM) Lymphocytes # 3.1 K/CMM 3.7 K/CMM [1.0-5.5 K/CMM] (07/18/14 4:18 AM) (07/17/14 3:08 PM) Monocytes # [0.0-0.8 0.7 K/CMM 0.6 K/CMM K/CMM] (07/18/14 4:18 AM) (07/17/14 3:08 PM) Eosinophils # 0.1 K/CMM 0.1 K/CMM [0.0-0.5 K/CMM] (07/18/14 4:18 AM) (07/17/14 3:08 PM) Basophils # [0.0-0.2 0.1 K/CMM K/CMM] (07/18/14 4:18 AM) Medications Administered During Your Visit No data available for this section Immunizations No data available for this section Procedures Procedure Type Body Site Date of Procedure Related Diagnosis Abdominal hysterectomy and left salpingo-oophorectomy Appendectomy Cholecystotomy and removal of foreign body from gallbladder Social History Social History Type Response Alcohol Use: Never Smoking Status Never smoker, Exposure to Tobacco Smoke None, Cigarette Smoking Last 365 Days Yes, Reg Smoking Cessation Counseling No Assessment and Plan Extracted from: Title: Neurology Progress Note Author: Mario Barker Date: 07/18/14 Duane GONZALES Impression and Plan 1. Right upper extremity paraesthesia, unclear etiology. Possible complex migraine. 2. Change in mental status, possible metabolic encephalopathy (?hypoglycemia) versus complex migraine - resolved. 3. Diabetes mellitus. 4. History of vitamin B1 deficiency. RECOMMENDATIONS: better. telemetry. Patient's current clinical picture is not consistent with any acute cerebrovascular event. pending vitamin B1 level, Fasting lipid profile - wnl. supportive care. may be discharged from neurology standpoint. o/p neurology clinic followup. Thank you for this opportunity to participate in the care of your patient.
--- OUTSIDE RECORDS SUMMARY | 2019-03-22 01:54 | XMS REPORT | CCD ---
Author Author Auto Generated Organization [facility] Kevin Address Unknown Phone Unavailable Care Team Providers Care Legal Collector Name Role Phone Rogers De La Cruz CP Allergies, Adverse Reactions, Alerts Substance Reaction Status Remicade Active Problem List Condition Effective Dates Status Appendectomy Active Bloody stool 05/05/2011 Active Colitis 05/18/2011 Active Depressed Active Diabetic nephropathy Active Diarrhea Active Hysterectomy Active Nausea Active Sepsis Active Shortness of breath < 04/15/2011 Resolved
--- OUTSIDE RECORDS SUMMARY | 2019-03-22 01:54 | XMS REPORT | CCD ---
Author Author Auto Generated Organization [facility] Address Unknown Phone Unavailable Care Team Providers Care Patternmaker All Around Name Role Phone Rajan Carmichael CP Allergies, Adverse Reactions, Alerts Substance Reaction Status NKDA Active Problem List Condition Effective Dates Status Appendectomy Active Bloody stool 05/05/2011 Active Colitis 05/18/2011 Active Depressed Active Diabetic nephropathy Active Diarrhea Active Hysterectomy Active Nausea Active Sepsis Active Shortness of breath < 04/15/2011 Resolved Results CHEMISTRY Most recent to oldest [Reference Range]: 1 Sodium Lvl [135-145 mEq/L] 137 mEq/L (02/03/2012 16:32:00) Potassium Lvl [3.5-5.1 mEq/L] 5.0 mEq/L (02/03/2012 16:32:00) Chloride Lvl [95-109 mEq/L] 100 mEq/L (02/03/2012 16:32:00) CO2 [24-32 mEq/L] 27 mEq/L (02/03/2012 16:32:00) AGAP [10.0-20.0 mEq/L] 15.0 mEq/L (02/03/2012 16:32:00) Creatinine Lvl [0.5-1.4 mg/dL] 0.9 mg/dL (02/03/2012 16:32:00) BUN [7-22 mg/dL] 19 mg/dL (02/03/2012 16:32:00) Glucose Lvl [70-99 mg/dL] 358 mg/dL 1 *HI* (02/03/2012 16:32:00) Total Protein [6.4-8.4 g/dL] 7.0 g/dL (02/03/2012 16:32:00) Albumin Lvl [3.5-5.0 g/dL] 3.5 g/dL (02/03/2012 16:32:00) Globulin [2.0-4.0 g/dL] 3.5 g/dL (02/03/2012 16:32:00) A/G Ratio [0.7-1.6] 1.0 (02/03/2012 16:32:00) Calcium Lvl [8.5-10.5 mg/dL] 8.4 mg/dL *LOW* (02/03/2012:32:00) ALT [0-65 U/L] 43 U/L (02/03/2012 16:32:00) AST [0-37 U/L] 26 U/L (02/03/2012 16:32:00) Alk Phos [39-136 U/L] 98 U/L (02/03/2012 16:32:00) Bili Total [0.2-1.3 mg/dL] 0.2 mg/dL (02/03/2012 16:32:00) Bili Direct [0.0-0.3 mg/dL] 0.1 mg/dL (02/03/2012 16:32:00) Bili Indirect [0.0-1.0 mg/dL] 0.1 mg/dL (02/03/2012 16:32:00) 1Interpretive Data: Adult reference range values reflect the clinical guidelinesof the [place] [employer]. HEMATOLOGY Most recent to oldest [Reference Range]: 1 WBC [3.7-10.4 K/CMM] 5.9 K/CMM (02/03/2012 16:32:00) RBC [4.20-5.40 M/CMM] 3.97 M/CMM *LOW* (02/03/2012 16:32:00) Hgb [12.0-16.0 g/dL] 11.9 g/dL *LOW* (02/03/2012 16:32:00) Hct [36.0-48.0 %] 35.8 % *LOW* (02/03/2012 16:32:00) MCV [81.0-99.0 fL] 90.2 fL (02/03/2012 16:32:00) MCH [27.0-31.0 pg] 29.9 pg (02/03/2012 16:32:00) MCHC [32.0-36.0 g/dL] 33.2 g/dL (02/03/2012 16:32:00) RDW [11.5-14.5 %] 13.2 % (02/03/2012 16:32:00) Platelet [133-450 K/CMM] 316 K/CMM (02/03/2012 16:32:00) MPV [7.4-10.4 fL] 6.6 fL *LOW* (02/03/2012 16:32:00) Segs [45.0-75.0 %] 47.5 % (02/03/2012 16:32:00) Lymphocytes [20.0-40.0 %] 43.8 % *HI* (02/03/2012 16:32:00) Monocytes [2.0-12.0 %] 7.0 % (02/03/2012 16:32:00) Eosinophils [0.0-4.0 %] 1.3 % (02/03/2012 16:32:00) Basophils [0.0-1.0 %] 0.4 % (02/03/2012 16:32:00) Segs-Bands # [1.5-8.1 K/CMM] 2.8 K/CMM (02/03/2012 16:32:00) Lymphocytes # [1.0-5.5 K/CMM] 2.6 K/CMM (02/03/2012 16:32:00) Monocytes # [0.0-0.8 K/CMM] 0.4 K/CMM (02/03/2012 16:32:00) Eosinophils # [0.0-0.5 K/CMM] 0.1 K/CMM (02/03/2012 16:32:00) Basophils # [0.0-0.2 K/CMM] 0.0 K/CMM (02/03/2012 16:32:00) PT [12.0-14.7 seconds] 12.2 seconds (02/03/2012 16:32:00) INR [0.85-1.17] 0.90 2 (02/03/2012 16:32:00) Bleeding Time [2.0-9.0 minutes] 6.0 minutes (02/03/2012 16:32:00) PTT [22.9-35.8 seconds] 26.9 seconds 3 (02/03/2012 16:32:00) 2Interpretive Data: RECOMMENDED RANGES FOR PROTIME INR: 2.0-3.0 for most medical and surgical thromboembolic states. 2.5-3.5 for artificial heart valves and recurrent embolism.INR SHOULD BE USED ONLY FOR PATIENTS ON STABLE ANTICOAGULANT THERAPY. 3Interpretive Data: Heparin Therapeutic Range: 57 - 92 Seconds
--- OUTSIDE RECORDS SUMMARY | 2019-03-22 01:54 | XMS REPORT | CCD ---
Author Author Auto Generated Organization [facility] Kevin Address Unknown Phone Unavailable Care Team Providers Care Orthopedic Designer Name Role Phone Rogers De La Cruz CP Allergies, Adverse Reactions, Alerts Substance Reaction Status NKDA Active Problem List Condition Effective Dates Status Appendectomy Active Bloody stool 05/05/2011 Active Colitis 05/18/2011 Active Depressed Active Diabetic nephropathy Active Diarrhea Active Hysterectomy Active Nausea Active Sepsis Active Shortness of breath < 04/15/2011 Resolved
--- OUTSIDE RECORDS SUMMARY | 2019-03-22 01:54 | XMS REPORT | Summary of Care ---
Author Organization Unknown Address Unknown Phone Unavailable Encounter [facility] Benjaminr_katerina(ANAYELI) [id number] Date(s): 04/25/14 - 04/25/14 [facility] Outpatient Imaging - [address] [address]- [place] Discharge Disposition: Home Physician Attending: Rajan Carmichael MD Reason for Visit 724.4 - LUMBOSACRAL CHARLA Problem List Condition Effective Dates Status Health [...]
--- OUTSIDE RECORDS SUMMARY | 2019-03-22 01:54 | XMS REPORT | Summary of Care ---
Author Organization Unknown Address Unknown Phone Unavailable Encounter [facility] Neto(ANAYELI) [id number] Date(s): 06/06/14 - 06/06/14 [facility] [address] Discharge Disposition: Home Physician Attending: Fco Reyez MD Reason for Visit 250.93 Problem List Condition Effective Dates Status Health Status Informant Appendectomy(Confirm Active ed) Bloody 05/05/11 Active stool(Confirmed) Colitis(Confirmed) 05/18/11 Active Depressed(Confirmed) Active Diabetic Active nephropathy(Confirme d) Diarrhea(Confirmed) Active Hysterectomy(Confirm Active ed) Nausea(Confirmed) Active Sepsis(Confirmed) Active Shortness of < 04/15/11 Resolved breath(Confirmed) Allergies, Adverse Reactions, Alerts Substance Reaction Severity Status Remicade Active Medications No data available for this section Results ELECTROLYTES Most recent to 1 oldest [Reference Range]: Sodium Lvl [135-145 140 mEq/L mEq/L] (06/06/14 1:29 PM) Potassium Lvl 4.0 mEq/L [3.5-5.1 mEq/L] (06/06/14 1:29 PM) Chloride Lvl [95-109 101 mEq/L mEq/L] (06/06/14 1:29 PM) CO2 [24-32 mEq/L] 33 mEq/L *HI* (06/06/14 1:29 PM) AGAP [10.0-20.0 10.0 mEq/L mEq/L] (06/06/14 1:29 PM) CHEM PANEL Most recent to 1 oldest [Reference Range]: Creatinine Lvl 0.8 mg/dL [0.5-1.4 mg/dL] (06/06/14 1:29 PM) eGFR 83 mL/min/1.73m2 1 *NA* (06/06/14 1:29 PM) BUN [7-22 mg/dL] 13 mg/dL (06/06/14 1:29 PM) B/C Ratio [6-25] 16 (06/06/14 1:29 PM) Glucose Lvl [70-99 123 mg/dL 2 mg/dL] *HI* (06/06/14 1:29 PM) Total Protein 7.5 g/dL [6.4-8.4 g/dL] (06/06/14 1:29 PM) Albumin Lvl [3.5-5.0 4.0 g/dL g/dL] (06/06/14 1:29 PM) Globulin [2.0-4.0 3.5 g/dL g/dL] (06/06/14 1:29 PM) A/G Ratio [0.7-1.6] 1.1 (06/06/14 1:29 PM) Calcium Lvl 9.9 mg/dL [8.5-10.5 mg/dL] (06/06/14 1:29 PM) ALT [0-65 unit/L] 47 unit/L (06/06/14 1:29 PM) AST [0-37 unit/L] 32 unit/L (06/06/14 1:29 PM) Alk Phos [39-136 127 unit/L unit/L] (06/06/14 1:29 PM) Bili Total [0.2-1.3 0.6 mg/dL mg/dL] (06/06/14 1:29 PM) Vitamin D, 25-OH, 65 ng/mL 3 Total [30-100 ng/mL] (06/06/14 1:29 PM) 1Result Comment: The eGFR is calculated [...] be mul tiplied by the estimated BMI. 2Interpretive Data: Adult reference range values reflect the clinical guidelines of the [place] [employer]. 3Interpretive Data: Reference range is based on recommendations in the Endocrine Society Clinical Practice Guideline (J Clin Endocrinol Metab 2011;96:1492-1901) LIPIDS Most recent to 1 oldest [Reference Range]: CHD Risk [3.90-5.80] 1.80 *LOW* (06/06/14 1:29 PM) Chol [<=199 mg/dL] 200 mg/dL *HI* (06/06/14 1:29 PM) Trig [<=149 mg/dL] 78 mg/dL (06/06/14 1:29 PM) HDL [>=61 mg/dL] 111 mg/dL (06/06/14 1:29 PM) LDL (Calculated) 73 mg/dL [<=99 mg/dL] (06/06/14 1:29 PM) VLDL 16 *NA* (06/06/14 1:29 PM) THYROID PANEL Most recent to 1 oldest [Reference Range]: T4 Free [0.76-1.46 1.81 ng/dL ng/dL] *HI* (06/06/14 1:29 PM) TSH [0.360-3.740 0.013 uIU/mL uIU/mL] *LOW* (06/06/14 1:29 PM) URINE CHEM Most recent to 1 oldest [Reference Range]: U Microalb 18.7 mg/L *NA* (06/06/14 1:29 PM) U Alb/Crea [<=30.0 16.4 mcg/mg creat mcg/mg creat] (06/06/14 1:29 PM) U Creatinine 113.8 mg/dL 4 *NA* (06/06/14 1:29 PM) 4Interpretive Data: No established reference ranges. HEMATOLOGY Most recent to 1 oldest [Reference Range]: WBC [3.7-10.4 K/CMM] 5.4 K/CMM (06/06/14 1:29 PM) RBC [4.20-5.40 4.80 M/CMM M/CMM] (06/06/14 1:29 PM) Hgb [12.0-16.0 g/dL] 14.4 g/dL (06/06/14 1:29 PM) Hct [36.0-48.0 %] 42.4 % (06/06/14 1:29 PM) MCV [80.0-98.0 fL] 88.3 fL (06/06/14 1:29 PM) MCH [27.0-31.0 pg] 30.0 pg (06/06/14 1:29 PM) MCHC [32.0-36.0 34.0 g/dL g/dL] (06/06/14 1:29 PM) RDW [11.5-14.5 %] 13.1 % (06/06/14 1:29 PM) Platelet [133-450 285 K/CMM K/CMM] (06/06/14 1:29 PM) MPV [7.4-10.4 fL] 6.8 fL *LOW* (06/06/14 1:29 PM) Segs [45.0-75.0 %] 36.5 % *LOW* (06/06/14 1:29 PM) Lymphocytes 51.3 % [20.0-40.0 %] *HI* (06/06/14 1:29 PM) Monocytes [2.0-12.0 9.0 % %] (06/06/14 1:29 PM) Eosinophils [0.0-4.0 2.6 % %] (06/06/14 1:29 PM) Basophils [0.0-1.0 0.6 % %] (06/06/14 1:29 PM) Segs-Bands # 2.0 K/CMM [1.5-8.1 K/CMM] (06/06/14 1:29 PM) Lymphocytes # 2.8 K/CMM [1.0-5.5 K/CMM] (06/06/14 1:29 PM) Monocytes # [0.0-0.8 0.5 K/CMM K/CMM] (06/06/14 1:29 PM) Eosinophils # 0.1 K/CMM [0.0-0.5 K/CMM] (06/06/14 1:29 PM) Medications Administered During Your Visit No data available for this section Immunizations No data available for this section Social History Social History Type Response
--- OUTSIDE RECORDS SUMMARY | 2019-03-22 01:55 | XMS REPORT | Summary of Care ---
Author Author [facility] Organization [facility] Address Unknown Phone Unavailable Encounter [facility] Neto(ANAYELI) [id number] Date(s): 07/23/16 - 07/23/16 [facility] [address] [place] [address]- Discharge Disposition: Home or Self Care Attending Physician: Fco Reyez MD Vital Signs No data available for this section Problem List Condition Effective Dates Status Health Status Informant Abrasion and/or 04/26/14 Active friction burn of foot without infection1, 2 Allergic rhinitis3, 04/26/14 Active 4 Appendectomy(Confirm Active ed) Asthma5, 6 04/26/14 Active Asthma(Confirmed) Active Bloody 05/05/11 Active stool(Confirmed) Colitis(Confirmed) 05/18/11 Active Depressed(Confirmed) Active Depression(Confirmed Active ) Diabetes(Confirmed) Active Diabetes(Confirmed) Resolved Diabetic Active nephropathy(Confirme d) Diarrhea(Confirmed) Active H/O: [...] Alerts Substance Reaction Severity Status amoxicillin1 Active Bactrim Active inFLIXimab2 Active Remicade Active sulfamethoxazole-trimetho Active prim3 1Data migrated from [employer] on 02/08/15. Originally documented as AMOXICILLIN. 2Data migrated from [employer] on 02/08/15. Originally documented as REMICAID. 3Data migrated from [employer] on 02/08/15. Originally documented as BACTRIM. Medications No data available for this section Results No data available for this section Immunizations Not Given Vaccine Date Status Refusal Reason influenza virus vaccine, inactivated 07/30/14 Not Given Patient Refuses Procedures Procedure Date Related Diagnosis Body Site Cataract surgery 2009 Cataract surgery 2008 Hernia repair 2007 Tympanoplasty 2005 Appendectomy 2000 ELIEZER - Manipulation of joint under anesthetic 1996 Mastoidectomy 1992 Carpal tunnel release 1982 Carpal tunnel release 1981 section 1979 section 1978 Tonsillectomy and adenoidectomy 1963 Abdominal [...]
--- OUTSIDE RECORDS SUMMARY | 2019-03-22 01:55 | XMS REPORT | Summary of Care ---
Author Author [facility] Organization [facility] Address Unknown Phone Unavailable Encounter [facility](ANAYELI) [phone] Date(s): 12/17/15 - 12/19/15 [facility] [address] [place] [address]- Discharge Disposition: Home Attending Physician: Rogers De La Cruz MD Admitting Physician: Rogers De La Cruz MD Referring Physician: Rogers De La Cruz MD Vital Signs 1 2 3 Most recent to oldest [Reference Range]: 152.4 cm (12/12/15 4:18 PM) Height 99.1 DegF (12/19/15 12:11 PM) 98.1 DegF (12/19/15 8:33 AM) 98.7 DegF (12/19/15 3:49 AM) Temperature Oral [96.4-99.1 DegF] 165/77 mmHg *HI* (12/19/15 12:11 PM) 135/84 mmHg (12/19/15 8:33 AM) 160/77 mmHg *HI* (12/19/15 3:49 AM) Blood Pressure [90-140/60-90 mmHg] 16 BRMIN (12/19/15 12:11 PM) 16 BRMIN (12/19/15 8:33 AM) 14 BRMIN (12/19/15 7:41 AM) Respiratory Rate [14-20 BRMIN] 89 bpm (12/19/15 12:11 PM) 90 bpm (12/19/15 8:33 AM) 81 bpm (12/19/15 3:49 AM) Peripheral Pulse Rate [60-100 bpm] 71.449 kg (12/12/15 4:18 PM) Weight 30.76 m2 (12/12/15 4:18 PM) Body Mass Index Problem List Condition [...] on 02/08/15. Originally documented as BACTRIM. Medications Reminder to bring pt's own med Asacol HD to pharmacy Reminder to bring pt's own med Asacol HD to pharmacy, 1, Drug form: Viv FUNEZ te: VIRGEN FUNEZ, 12/17/15 16:00:00, Duration: 30 day, Stop date: 01/16/16 8:00: 00 Start Date: 12/17/15 Stop Date: 12/17/15 Status: Deleted acetaminophen 650 mg, 2 tab, Route: PO, Drug form: TAB, Q4H, Dosing Weight 71.449, kg, PRN Davidson n 1-3/Temp > 100.4 F, Start date: 12/17/15 9:33:00, Duration: 30 day, Stop date: 01/16/16 9:32:00 Notes: Do not exceed 4 gm/day. (Same as: Tylenol) Start Date: 12/17/15 Stop Date: 12/19/15 Status: Discontinued acetaminophen (ANES) Route: IV, Drug form: INJ, ONCE, Stop date: 12/17/15 9:49:00 Start Date: 12/17/15 Stop Date: 12/17/15 Status: Completed Aciphex 20 mg, Route: PO, Drug form: ECTAB, BID, Dosing Weight 71.449, kg, Start date: 0 12/17/15 17:00:00, Duration: 30 day, Stop date: 01/16/16 9:00:00 Start Date: 12/17/15 Stop Date: 12/17/15 Status: Deleted Advair Diskus 250 mcg-50 mcg inhalation powder 1 puff, Route: INHALATION, Drug Form: AERO, Dosing Weight 71.449, kg, BID, Start date: 12/17/15 17:00:00, Duration: 30 day, Stop date: 01/16/16 9:00:00 Start Date: 12/17/15 Stop Date: 12/17/15 Status: Deleted Al hydroxide/Mg hydroxide/simethicone 200 mg-200 mg-20 mg/5 mL oral suspension 30 ml, Route: PO, Drug Form: SUSP, Dosing Weight 71.449, kg, Q4H, PRN Indigestio n, Start date: 12/17/15 9:33:00, Duration: 30 day, Stop date: 01/16/16 9:32:00 Notes: (aluminum hydroxide-magnesium hyd-simethicone [id number]/5ml 30 ml ud S US) Start Date: 12/17/15 Stop Date: 12/19/15 Status: Discontinued Asacol HD 800 mg, 1 tab, Route: PO, Drug form: ECTAB, TID, Dosing Weight 71.449, kg, Start date: 12/17/15 17:00:00, Duration: 30 day, Stop date: 01/16/16 13:00:00 Notes: (Same as: Asacol HD)(Do not crush) Start Date: 12/17/15 Stop Date: 12/19/15 Status: Discontinued budesonide-formoterol 160 mcg-4.5 mcg/inh inhalation aerosol with adapter 2 inhalation, Route: INHALATION, Drug Form: AERO/A, BID, Start date: 12/17/15 17 :00:00, Duration: 30 day, Stop date: 01/16/16 9:00:00 Notes: (Same as: Symbicort)WASTE: Aerosol - Return to Pharmacy Start Date: 12/17/15 Stop Date: 12/19/15 Status: Discontinued buPROPion 300 mg, 2 tab, Route: PO, Drug form: ERTAB, Daily, Dosing Weight 71.449, kg, Sta rt date: 12/18/15 9:00:00, Duration: 30 day, Stop date: 01/16/16 9:00:00 Notes: (Same as: Wellbutrin XL)"Do Not Crush" Start Date: 12/18/15 Stop Date: 12/19/15 Status: Discontinued Dextrose 50% Syringe 25 gm, 50 mL, Route: IVP, Drug Form: INJ, Dosing Weight 71.449, kg, PRN, PRN Blo od Glucose Results, Start date: 12/17/15 13:43:00, Duration: 30 day, Stop date: 01/16/16 14:42:00 Start Date: 12/17/15 Stop Date: 12/19/15 Status: Discontinued Dextrose 50% Syringe 12.5 gm, 25 mL, Route: IVP, Drug Form: INJ, Dosing Weight 71.449, kg, PRN, PRN B lood Glucose Results, Start date: 12/17/15 13:43:00, Duration: 30 day, Stop date : 01/16/16 14:42:00 Start Date: 12/17/15 Stop Date: 12/19/15 Status: Discontinued diphenhydrAMINE 25 mg, 1 tab, Route: PO, Drug form: TAB, Q6H, Dosing Weight 71.449, kg, PRN Itch ing, Start date: 12/17/15 9:33:00, Duration: 30 day, Stop date: 01/16/16 9:32:00 Start Date: 12/17/15 Stop Date: 12/19/15 Status: Discontinued docusate sodium 100 mg oral capsule 100 mg, 1 cap, Route: PO, Drug form: CAP, BID, Dosing Weight 71.449, kg, Start d ate: 12/17/15 17:00:00, Duration: 30 day, Stop date: 01/16/16 9:00:00 Notes: (Same as: Colace) (Do Not Crush) Start Date: 12/17/15 Stop Date: 12/19/15 Status: Discontinued Dulcolax Laxative 5 mg, 1 tab, Route: PO, Drug form: ECTAB, Q24H, Dosing Weight 71.449, kg, PRN Co nstipation, Start date: 12/17/15 9:33:00, Duration: 30 day, Stop date: 01/16/16 9:32:00 Notes: (Same As: Dulcolax, Correctol) (Do Not Crush) "Do Not Crush" Start Date: 12/17/15 Stop Date: 12/19/15 Status: Discontinued fentaNYL (ANES) Route: IV, Drug form: INJ, ONCE, Stop date: 12/17/15 8:39:00 Start Date: 12/17/15 Stop Date: 12/17/15 Status: Completed folic acid 0.4 mg, 1 tab, Route: PO, Drug form: TAB, Daily, Dosing Weight 71.449, kg, Start date: 12/18/15 9:00:00, Duration: 30 day, Stop date: 01/16/16 9:00:00 Start Date: 12/18/15 Stop Date: 12/19/15 Status: Discontinued glucagon 1 mg, Route: IM, Drug form: PDR/INJ, PRN, Dosing Weight 71.449, kg, PRN Blood Gl ucose Results, Start date: 12/17/15 13:43:00, Duration: 30 day, Stop date: 01/15 14:42:00 Start Date: 12/17/15 Stop Date: 12/19/15 Status: Discontinued hydromorphone 0.5 mg, 0.5 mL, Route: IVP, Drug form: INJ, Q3H, Dosing Weight 71.449, kg, PRN P ain Score 7-10, Start date: 12/17/15 9:33:00, Duration: 30 day, Stop date: 01/15 9:32:00 Start Date: 12/17/15 Stop Date: 12/19/15 Status: Discontinued hydromorphone (ANES) Route: IV, Drug form: INJ, ONCE, Stop date: 12/17/15 8:19:00 Start Date: 12/17/15 Stop Date: 12/17/15 Status: Completed hydromorphone (ANES) Route: Intratracheal, Drug form: INJ, ONCE, Stop date: 12/17/15 8:19:00 Start Date: 12/17/15 Stop Date: 12/17/15 Status: Completed insulin aspart 4 unit, 0.04 mL, Route: SUB-Q, Drug form: SOLN, Bedtime, Dosing Weight 71.449, k g, PRN Blood Glucose Results, Start date: 12/17/15 13:43:00, Duration: 30 day, S top date: 01/16/16 13:42:00 Notes: Roll in palms of hands gently; Do not shake vigorously. (Same as: Brandon Butler)"single patient use only"WASTE: F/P - Black; E - [facility] Trash Bin Stable f or 28 days at room temperature.Expires in days from Date Start Date: 12/17/15 Stop Date: 12/19/15 Status: Discontinued insulin aspart 1 unit, 0.01 mL, Route: SUB-Q, Drug form: SOLN, Bedtime, Dosing Weight 71.449, k g, PRN Blood Glucose Results, Start date: 12/17/15 13:43:00, Duration: 30 day, S top date: 01/16/16 13:42:00 Notes: Roll in palms of hands gently; Do not shake vigorously. (Same as: Brandon Butler)"single patient use only"WASTE: F/P - Black; E - [facility] Trash Bin Stable f or 28 days at room temperature.Expires in days from Date Start Date: 12/17/15 Stop Date: 12/19/15 Status: Discontinued insulin aspart 3 unit, 0.03 mL, Route: SUB-Q, Drug form: SOLN, Bedtime, Dosing Weight 71.449, k g, PRN Blood Glucose Results, Start date: 12/17/15 13:43:00, Duration: 30 day, S top date: 01/16/16 13:42:00 Notes: Roll in palms of hands gently; Do not shake vigorously. (Same as: Brandon Butler)"single patient use only"WASTE: F/P - Black; E - [facility] Trash Bin Stable f or 28 days at room temperature.Expires in days from Date Start Date: 12/17/15 Stop Date: 12/19/15 Status: Discontinued insulin aspart 2 unit, 0.02 mL, Route: SUB-Q, Drug form: SOLN, Bedtime, Dosing Weight 71.449, k g, PRN Blood Glucose Results, Start date: 12/17/15 13:43:00, Duration: 30 day, S top date: 01/16/16 13:42:00 Notes: Roll in palms of hands gently; Do not shake vigorously. (Same as: Brandon Butler)"single patient use only"WASTE: F/P - Black; E - [facility] Trash Bin Stable f or 28 days at room temperature.Expires in days from Date Start Date: 12/17/15 Stop Date: 12/19/15 Status: Discontinued insulin aspart 2 unit, 0.02 mL, Route: SUB-Q, Drug form: SOLN, TID-Before Meals, Dosing Weight 71.449, kg, PRN Blood Glucose Results, Start date: 12/17/15 13:43:00, Duration: 30 day, Stop date: 01/16/16 13:42:00 Notes: Roll in palms of hands gently; Do not shake vigorously. (Same as: Brandon Butler)"single patient use only"WASTE: F/P - Black; E - [facility] Trash Bin Stable f or 28 days at room temperature.Expires in days from Date Start Date: 12/17/15 Stop Date: 12/19/15 Status: Discontinued insulin aspart 4 unit, 0.04 mL, Route: SUB-Q, Drug form: SOLN, TID-Before Meals, Dosing Weight 71.449, kg, PRN Blood Glucose Results, Start date: 12/17/15 13:43:00, Duration: 30 day, Stop date: 01/16/16 13:42:00 Notes: Roll in palms of hands gently; Do not shake vigorously. (Same as: Brandon Butler)"single patient use only"WASTE: F/P - Black; E - [facility] Trash Bin Stable f or 28 days at room temperature.Expires in days from Date Start Date: 12/17/15 Stop Date: 12/19/15 Status: Discontinued insulin aspart 10 unit, 0.1 mL, Route: SUB-Q, Drug form: SOLN, TID-Before Meals, Dosing Weight 71.449, kg, PRN Blood Glucose Results, Start date: 12/17/15 13:43:00, Duration: 30 day, Stop date: 01/16/16 13:42:00 Notes: Roll in palms of hands gently; Do not shake vigorously. (Same as: Brandon Butler)"single patient use only"WASTE: F/P - Black; E - [facility] Trash Bin Stable f or 28 days at room temperature.Expires in days from Date Start Date: 12/17/15 Stop Date: 12/19/15 Status: Discontinued insulin aspart 8 unit, 0.08 mL, Route: SUB-Q, Drug form: SOLN, TID-Before Meals, Dosing Weight 71.449, kg, PRN Blood Glucose Results, Start date: 12/17/15 13:43:00, Duration: 30 day, Stop date: 01/16/16 13:42:00 Notes: Roll in palms of hands gently; Do not shake vigorously. (Same as: NovoLO G)"single patient use only"WASTE: F/P - Black; E - [facility] Trash Bin Stable f or 28 days at room temperature.Expires in days from Date Start Date: 12/17/15 Stop Date: 12/19/15 Status: Discontinued insulin aspart 6 unit, 0.06 mL, Route: SUB-Q, Drug form: SOLN, TID-Before Meals, Dosing Weight 71.449, kg, PRN Blood Glucose Results, Start date: 12/17/15 13:43:00, Duration: 30 day, Stop date: 01/16/16 13:42:00 Notes: Roll in palms of hands gently; Do not shake vigorously. (Same as: NovoLO G)"single patient use only"WASTE: F/P - Black; E - [facility] Trash Bin Stable f or 28 days at room temperature.Expires in days from Date Start Date: 12/17/15 Stop Date: 12/19/15 Status: Discontinued ketOROLAC 15 mg, 1 mL, Route: IVP, Drug form: INJ, Q6H, Dosing Weight 71.449, kg, PRN Pain Score 4-6, Start date: 12/17/15 9:33:00, Duration: 3 day, Stop date: 12/20/15 9 :32:00 Notes: (Same as:Toradol) IV bolus must be given >15 seconds. Give IM administration slowly and deeply into the muscle. Not for use > 4 days. Start Date: 12/17/15 Stop Date: 12/19/15 Status: Discontinued Lactated Ringers Injection IV (ANES) (ANES) Route: IV, Total Volume: 1,000, Start date: 12/17/15 7:42:00, Stop date: 6 8:42:00 Start Date: 12/17/15 Stop Date: 12/17/15 Status: Completed Lactated Ringers Injection IV 1000 mL 1,000 mL, Rate: 25 ml/hr, Infuse over: 40 hr, Route: IV, Dosing Weight 71.449 kg , Total Volume: 1,000, Start date: 12/17/15 7:39:00, Duration: 30 day, Stop date : 01/16/16 7:38:00 Start Date: 12/17/15 Stop Date: 12/17/15 Status: Discontinued Lactated Ringers IV 1,000 mL 1,000 mL, Rate: 100 ml/hr, Infuse over: 10 hr, Route: IV, Dosing Weight 71.449 k g, Total Volume: 1,000, Start date: 12/17/15 9:33:00, Duration: 30 day, Stop sarah e: 01/16/16 9:32:00 Start Date: 12/17/15 Stop Date: 12/18/15 Status: Discontinued LaMICtal 150 mg, 1.5 tab, Route: PO, Drug form: TAB, Daily, Dosing Weight 71.449, kg, Sta rt date: 12/18/15 9:00:00, Duration: 30 day, Stop date: 01/16/16 9:00:00 Notes: (Same as:LaMICtal) Start Date: 12/18/15 Stop Date: 12/19/15 Status: Discontinued Levemir 15 unit, 0.15 mL, Route: SUB-Q, Drug form: INJ, Q12H, Dosing Weight 71.449, kg, Start date: 12/17/15 21:00:00, Duration: 30 day, Stop date: 01/16/16 9:00:00 Notes: Same as LevemirDo not hold insulin without contacting prescriberWASTE: F/ P - Black; E - [facility] "single patient use only" Start Date: 12/17/15 Stop Date: 12/19/15 Status: Discontinued lidocaine (ANES) Route: IV, Drug form: INJ, ONCE, Stop date: 12/17/15 8:39:00 Start Date: 12/17/15 Stop Date: 12/17/15 Status: Completed lidocaine topical patch (5% film) 1 patch, Route: TOP, Daily, Drug form: FILM, Start date: 12/18/15 9:00:00, Durat ion: 30 day, Stop date: 01/16/16 9:00:00 Notes: Apply only once for up to 12 hours in [id number] period (12 hours on and 12 hours off).(Same as: Lidoderm)"Remove old patch before application of new patch" Start Date: 12/18/15 Stop Date: 12/19/15 Status: Discontinued Lipitor 40 mg, 1 tab, Route: PO, Drug form: TAB, QPM, Dosing Weight 71.449, kg, Start da te: 12/17/15 17:00:00, Duration: 30 day, Stop date: 01/15/16 17:00:00 Notes: (Same as: Lipitor) Start Date: 12/17/15 Stop Date: 12/19/15 Status: Discontinued midazolam (ANES) Route: IV, Drug form: SOLN, ONCE, Stop date: 12/17/15 8:19:00 Start Date: 12/17/15 Stop Date: 12/17/15 Status: Completed [place] 7.5/325 oral tablet See Instructions, PRN Pain Score 7-10, 1 tab PO Q6-8H as needed, # 50 tab, 0 Ref ill(s), given to patient Start Date: 12/19/15 Stop Date: 01/09/16 Status: Ordered [place] 7.5/325 oral tablet 1 tab, Route: PO, Drug Form: TAB, Dosing Weight 71.449, kg, Q4H, PRN Pain Score 4-6, Start date: 12/17/15 9:33:00, Duration: 30 day, Stop date: 01/16/16 9:32:00 Notes: Same as [place] 325-7.5mg Do not exceed 4gm/day of acetaminophen. Start Date: 12/17/15 Stop Date: 12/19/15 Status: Discontinued Nucynta PO, Q6H, 0 Refill(s) Start Date: 12/12/15 Status: Ordered ondansetron 4 mg, 2 mL, Route: IVP, Drug form: INJ, Q8H, Dosing Weight 71.449, kg, PRN Nause a & Vomiting, Start date: 12/17/15 9:33:00, Duration: 30 day, Stop date: 01/16/16 9:32:00 Notes: (Same as: Radha) MEDICATION WASTE Product Size: 4 mgProduct Was jacobo: ___ mg Start Date: 12/17/15 Stop Date: 12/19/15 Status: Discontinued ondansetron (ANES) Route: IV, Drug form: INJ, ONCE, Stop date: 12/17/15 9:49:00 Start Date: 12/17/15 Stop Date: 12/17/15 Status: Completed Phazyme 250 mg, 2 tab, Route: PO, Drug form: CHEWTAB, Daily, Dosing Weight 71.449, kg, P RN Jamie, Start date: 12/17/15 13:43:00, Duration: 30 day, Stop date: 01/16/16 13: 42:00 Notes: (Same as: Mylanta Gas) Start Date: 12/17/15 Stop Date: 12/19/15 Status: Discontinued propofol (ANES) Route: IV, Drug form: INJ, ONCE, Stop date: 12/17/15 8:39:00 Start Date: 12/17/15 Stop Date: 12/17/15 Status: Completed Protonix 40 mg, 1 tab, Route: PO, Drug form: ECTAB, Before Dinner, Start date: 12/17/15 1 6:30:00, Duration: 30 day, Stop date: 01/15/16 16:30:00 Notes: Tablet should not be chewed or crushed.(Same as: Protonix) Start Date: 12/17/15 Stop Date: 12/19/15 Status: Discontinued remove patch 1 patch, Route: TOP, Bedtime, Drug form: ERFILM, Start date: 12/17/15 21:00:00, Duration: 30 day, Stop date: 01/15/16 21:00:00 Notes: Remove patch 12 hours after application each day. Start Date: 12/17/15 Stop Date: 12/19/15 Status: Discontinued rivaroxaban 10 mg oral tablet 10 mg=1 tab, PO, Daily, # 10 tab, 0 Refill(s) Start Date: 12/19/15 Status: Ordered Synthroid 150 microgram, 1 tab, Route: PO, Drug form: TAB, Q630AM, Dosing Weight 71.449, k g, Start date: 12/18/15 6:30:00, Duration: 30 day, Stop date: 01/16/16 6:30:00 Notes: Take 1 hour before or 2 hours after meal; Enteral feeds may interefere wi th the absorption of this medication. (Same as: Levothroid) Start Date: 12/18/15 Stop Date: 12/19/15 Status: Discontinued thiamine 100 mg, 1 tab, Route: PO, Drug form: TAB, Daily, Dosing Weight 71.449, kg, Start date: 12/18/15 9:00:00, Duration: 30 day, Stop date: 01/16/16 9:00:00 Notes: (Same As: Vitamin B1) Start Date: 12/18/15 Stop Date: 12/19/15 Status: Discontinued tranexamic acid (ANES) Route: IV, Drug form: INJ, ONCE, Stop date: 12/17/15 9:24:00 Start Date: 12/17/15 Stop Date: 12/17/15 Status: Completed vancomycin (ANES) (ANES) Route: IV, Drug form: INJ, Start date: 12/17/15 7:41:00, Stop date: 12/17/15 8:4 1:00 Start Date: 12/17/15 Stop Date: 12/17/15 Status: Completed vancomycin (SCIP) + Sodium Chloride 0.9% IV 250 mL 1 gm, Route: IVPB, Q12H, Dosing Weight 71.449, kg, Time Critical Medication, Sta rt date: 12/17/15 20:00:00, Duration: 1 doses or times, Stop date: 12/17/15 20:0 0:00, Pharmacy to adjust dose for renal function Notes: TIME CRITICAL MEDICATION(Same As: Vancocin)Infusion rate< 1000 mg: infuse over 1 [id number] - 1500 mg: infuse over 1.5 [id number] - 2000 mg: infuse over 2 hours> 2001 mg: infuse over 2.5 hours MEDICATION WASTE Product Size: 1000 mgProduct Wasted: ___ mg Start Date: 12/17/15 Stop Date: 12/17/15 Status: Completed vancomycin + Sodium Chloride 0.9% IV 250 mL 1 gm, Route: IVPB, ONCE, Dosing Weight 71.449, kg, Start date: 12/17/15 7:00:00, Stop date: 12/17/15 7:00:00 Notes: TIME CRITICAL MEDICATION(Same As: Vancocin)Infusion rate< 1000 mg: infuse over 1 [id number] - 1500 mg: infuse over 1.5 [id number] - 2000 mg: infuse over 2 hours> 2001 mg: infuse over 2.5 hours MEDICATION WASTE Product Size: 1000 mgProduct Wasted: ___ mg Start Date: 12/17/15 Stop Date: 12/17/15 Status: Deleted Xarelto 10 mg, 1 tab, Route: PO, Drug form: TAB, Daily, Dosing Weight 71.449, kg, Start date: 12/18/15 8:00:00, Duration: 30 day, Stop date: 01/16/16 8:00:00 Notes: (Same as: Xarelto)Do Not Crush Start Date: 12/18/15 Stop Date: 12/19/15 Status: Discontinued Results BLOOD BANK RESULTS 1 2 3 Most recent to oldest [Reference Range]: O POS *Unknown* (12/14/15 2:50 PM) O POS *Unknown* (12/12/15 5:18 PM) ABO/Rh Negative (12/14/15 2:50 PM) Negative (12/12/15 5:18 PM) Antibody Scrn Product available (12/12/15 4:22 PM) RBC product ELECTROLYTES 1 2 3 Most recent to oldest [Reference Range]: 139 mEq/L (12/12/15 5:18 PM) Sodium Lvl [135-145 mEq/L] 3.7 mEq/L (12/12/15 5:18 PM) Potassium Lvl [3.5-5.1 mEq/L] 100 mEq/L (12/12/15 5:18 PM) Chloride Lvl [95-109 mEq/L] 33 mEq/L *HI* (12/12/15 5:18 PM) CO2 [24-32 mEq/L] 9.7 mEq/L *LOW* (12/12/15 5:18 PM) AGAP [10.0-20.0 mEq/L] CHEM PANEL 1 2 3 Most recent to oldest [Reference Range]: 0.65 mg/dL (12/17/15 11:22 AM) 0.82 mg/dL (12/12/15 5:18 PM) Creatinine Lvl [0.50-1.40 mg/dL] 98 mL/min/1.73m2 1 *NA* (12/17/15 11:22 AM) 79 mL/min/1.73m2 2 *NA* (12/12/15 5:18 PM) eGFR 13 mg/dL (12/12/15 5:18 PM) BUN [7-22 mg/dL] 16 (12/12/15 5:18 PM) B/C Ratio [6-25] 130 mg/dL *HI* (12/12/15 5:18 PM) Glucose Lvl [70-99 mg/dL] 7.7 g/dL (12/12/15 5:18 PM) Total Protein [6.4-8.4 g/dL] 4.0 g/dL (12/12/15 5:18 PM) Albumin Lvl [3.5-5.0 g/dL] 3.7 g/dL (12/12/15 5:18 PM) Globulin [2.0-4.0 g/dL] 1.1 (12/12/15 5:18 PM) A/G Ratio [0.7-1.6] 8.8 mg/dL (12/12/15 5:18 PM) Calcium Lvl [8.5-10.5 mg/dL] 53 unit/L (12/12/15 5:18 PM) ALT [0-65 unit/L] 31 unit/L (12/12/15 5:18 PM) AST [0-37 unit/L] 116 unit/L (12/12/15 5:18 PM) Alk Phos [39-136 unit/L] 0.4 mg/dL (12/12/15 5:18 PM) Bili Total [0.2-1.3 mg/dL] 1Result Comment: The eGFR is calculated using [...] be mul tiplied by the estimated BMI. URINE AND STOOL 1 2 3 Most recent to oldest [Reference Range]: Slight *ABN* (12/12/15 5:18 PM) UA Turbidity [Clear] Yellow *NA* (12/12/15 5:18 PM) UA Color [Yellow] 7.0 (12/12/15 5:18 PM) UA pH [5.0-8.0] 1.013 (12/12/15 5:18 PM) UA Spec Grav [<=1.030] 500 mg/dL *ABN* (12/12/15 5:18 PM) UA Glucose [Negative mg/dL] Negative (12/12/15 5:18 PM) UA Blood [Negative] Negative mg/dL *NA* (12/12/15 5:18 PM) UA Ketones [Negative mg/dL] Negative mg/dL (12/12/15 5:18 PM) UA Protein [Negative mg/dL] <=1.0 mg/dL *NA* (12/12/15 5:18 PM) UA Urobilinogen [0.1-1.0 mg/dL] Negative *NA* (12/12/15 5:18 PM) UA Bili [Negative] Negative (12/12/15 5:18 PM) UA Leuk Est [Negative] Negative (12/12/15 5:18 PM) UA Nitrite [Negative] <1 /HPF (12/12/15 5:18 PM) UA WBC [0-5 /HPF] 1 /HPF (12/12/15 5:18 PM) UA RBC [0-2 /HPF] Occasional /LPF *NA* (12/12/15 5:18 PM) UA Sq Epi [Few /LPF] IMMUNOLOGY 1 2 3 Most recent to oldest [Reference Range]: Negative *NA* (12/12/15 5:18 PM) HIV 1/2 Ab [Negative] HEMATOLOGY 1 2 3 Most recent to oldest [Reference Range]: 6.1 K/CMM (12/12/15 5:18 PM) WBC [3.7-10.4 K/CMM] 4.96 M/CMM (12/12/15 5:18 PM) RBC [4.20-5.40 M/CMM] 11.9 g/dL *LOW* (12/19/15 5:23 AM) 11.7 g/dL *LOW* (12/18/15 4:59 AM) 14.4 g/dL (12/12/15 5:18 PM) Hgb [12.0-16.0 g/dL] 35.8 % *LOW* (12/19/15 5:23 AM) 35.1 % *LOW* (12/18/15 4:59 AM) 43.7 % (12/12/15 5:18 PM) Hct [36.0-48.0 %] 88.1 fL (12/12/15 5:18 PM) MCV [80.0-98.0 fL] 29.0 pg (12/12/15 5:18 PM) MCH [27.0-31.0 pg] 32.9 g/dL (12/12/15 5:18 PM) MCHC [32.0-36.0 g/dL] 13.8 % (12/12/15 5:18 PM) RDW [11.5-14.5 %] 223 K/CMM (12/17/15 11:22 AM) 251 K/CMM (12/12/15 5:18 PM) Platelet [133-450 K/CMM] 6.5 fL *LOW* (12/12/15 5:18 PM) MPV [7.4-10.4 fL] 44.0 % *LOW* (12/12/15 5:18 PM) Segs [45.0-75.0 %] 45.3 % *HI* (12/12/15 5:18 PM) Lymphocytes [20.0-40.0 %] 7.9 % (12/12/15 5:18 PM) Monocytes [2.0-12.0 %] 2.3 % (12/12/15 5:18 PM) Eosinophils [0.0-4.0 %] 0.5 % (12/12/15 5:18 PM) Basophils [0.0-1.0 %] 2.7 K/CMM (12/12/15 5:18 PM) Segs-Bands # [1.5-8.1 K/CMM] 2.8 K/CMM (12/12/15 5:18 PM) Lymphocytes # [1.0-5.5 K/CMM] 0.5 K/CMM (12/12/15 5:18 PM) Monocytes # [0.0-0.8 K/CMM] 0.1 K/CMM (12/12/15 5:18 PM) Eosinophils # [0.0-0.5 K/CMM] 13.6 seconds (12/17/15 11:22 AM) 12.5 seconds (12/12/15 5:18 PM) PT [12.0-14.7 seconds] 1.01 (12/17/15 11:22 AM) 0.90 (12/12/15 5:18 PM) INR [0.85-1.17] 25.5 seconds (12/17/15 11:22 AM) 26.9 seconds (12/12/15 5:18 PM) PTT [22.9-35.8 seconds] Immunizations Vaccine Date Refusal Reason influenza virus vaccine, inactivated 07/30/14 Patient Refuses Procedures Procedure Date Related Diagnosis Body Site Cataract surgery 2009 Cataract surgery 2009 Hernia repair 2007 Tympanoplasty 2006 Appendectomy 1999 ELIEZER - Manipulation of joint [...] Counseling No1 1no change Assessment and Plan Extracted from: Title: Clinical Document Author: Rogers De La Cruz MD Date: 12/18/15 POD#1 Doing well Afeb VSS Wound dry NV intact 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
--- OUTSIDE RECORDS SUMMARY | 2019-03-22 01:55 | XMS REPORT | Summary of Care ---
Author Author [facility] [place] Organization [facility] [place] Address Unknown Phone Unavailable Encounter [facility]([place]) [phone] Date(s): 08/04/16 - 08/04/16 [facility] [place] [address] [place] [id number] [phone] Discharge Disposition: Home or Self Care Attending Physician: Agnes Brink MD Vital Signs No data available for [...]
--- OUTSIDE RECORDS SUMMARY | 2019-03-22 01:55 | XMS REPORT | Summary of Care ---
Author Author [facility] Address Unknown Phone Unavailable Encounter [facility]) [phone] Date(s): 02[facility]22/16 [facility] Attending Physician: Rogers De La Cruz MD Vital Signs No data available for [...] 7l4/l5 8Data migrated from [employer] on 6/2/15. 9Data migrated from [employer] on 03/13/15. [...] anesthetic 1996 Mastoidectomy 1992 Carpal tunnel release 1983 Carpal tunnel release 1982 section 1980 section [...]
--- OUTSIDE RECORDS SUMMARY | 2019-03-22 01:55 | XMS REPORT | Summary of Care ---
Author Author [facility] Address Unknown Phone Unavailable Encounter HQ Carl_katerina(FIN) [id number] Date(s): 05/09/15 - 06/07/15 [facility] [place] Discharge Disposition: Home Attending Physician: Rogers De La Cruz MD Vital Signs No data available for this section Problem List Condition Effective Dates Status Health Status Informant Abrasion and/or 04/26/14 Active friction burn of foot without infection1, 2 Allergic rhinitis3, 04/26/14 Active 4 Appendectomy(Confirm Active ed) Asthma5, 6 04/26/14 Active Bloody 05/05/11 Active stool(Confirmed) Colitis(Confirmed) 05/18/11 Active Depressed(Confirmed) Active 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 [...] Alerts Substance Reaction Severity Status amoxicillin1 Active inFLIXimab2 Active Remicade Active sulfamethoxazole-trimetho Active prim3 1Data migrated from [employer] on 02/08/15. Originally documented as AMOXICILLIN. 2Data migrated from [employer] on 02/08/15. Originally documented as REMICAID. 3Data migrated from [employer] on 02/08/15. Originally documented as BACTRIM. Medications No data available for this section Results No data available for this section Immunizations Vaccine Date Refusal Reason influenza virus vaccine, inactivated 07/30/14 Patient Refuses Procedures Procedure Date Related Diagnosis Body Site Abdominal hysterectomy and left salpingo-oophorectomy Appendectomy Cholecystotomy and removal of foreign body from gallbladder Mastoidectomy Oophorectomy Social History Social History Type Response Alcohol Never Smoking Status Never smoker; Exposure to Tobacco Smoke None; Cigarette Smoking Last 365 Days Yes; Reg Smoking Cessation Counseling No1 1no change Assessment and Plan No data available for this section
--- OUTSIDE RECORDS SUMMARY | 2019-03-22 01:55 | XMS REPORT | Summary of Care ---
Author Author [facility] Address Unknown Phone Unavailable Encounter HQ Neto([facility]) [id number] Date(s): 01/21/16 - 02/19/16 [facility] Discharge Disposition: Home Attending Physician: Rogers De [...]
--- OUTSIDE RECORDS SUMMARY | 2019-03-22 01:55 | XMS REPORT | Summary of Care ---
Author Author [facility] Address Unknown Phone Unavailable Encounter HQ Neto([facility]) [id number] Date(s): 12/21/15 - 01/19/16 [facility] Discharge Disposition: Home Attending Physician: Rogers De [...]
--- OUTSIDE RECORDS SUMMARY | 2019-03-22 01:55 | XMS REPORT | Summary of Care ---
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
--- OUTSIDE RECORDS SUMMARY | 2019-03-22 01:55 | XMS REPORT | Summary of Care ---
Author Organization Unknown Address Unknown Phone Unavailable Encounter HQ Carl_katerina(ANAYELI) [id number] Date(s): 08/16/14 - 08/16/14 [facility] [address] Discharge Disposition: Home Physician Attending: Ramila Bruce MD Physician_Referring: Melyssa You MD Reason for Visit BUBBLE STUDY DX:[id number]=ACUTE CARDIOEMBOLIC STROKEQ Vital Signs Most recent to 1 oldest [Reference Range]: Height 152.4 cm (08/16/14 10:55 AM) Weight 63.636 kg (08/16/14 10:55 AM) Body Mass Index 27.4 m2 (08/16/14 10:55 AM) Problem List Condition Effective Dates Status [...] influenza virus vaccine, inactivated 07/30/14 Patient Refuses Social History Social History Type Response Alcohol Use: Never Smoking Status Never smoker, Exposure to Tobacco Smoke None, Cigarette Smoking Last 365 Days Yes, Reg Smoking Cessation Counseling No1 1no change
--- OUTSIDE RECORDS SUMMARY | 2019-03-22 01:55 | XMS REPORT | Summary of Care ---
Author Author [facility] Organization [facility] Address Unknown Phone Unavailable Encounter HQ Neto(ANAYELI) [id number] Date(s): 04/19/16 - 04/19/16 [facility] [address] [place] [address]- Discharge Disposition: Home Attending Physician: Fco Reyez MD Vital Signs [...] 1 oldest [Reference Range]: Sodium Lvl [135-145 142 mEq/L mEq/L] (04/19/16 8:12 AM) Potassium Lvl 3.6 mEq/L [3.5-5.1 mEq/L] (04/19/16 8:12 AM) Chloride Lvl [95-109 100 mEq/L mEq/L] (04/19/16 8:12 AM) CO2 [24-32 mEq/L] 33 mEq/L *HI* (04/19/16 8:12 AM) AGAP [10.0-20.0 12.6 mEq/L mEq/L] (04/19/16 8:12 AM) CHEM PANEL Most recent to 1 oldest [Reference Range]: Creatinine Lvl 0.85 mg/dL [0.50-1.40 mg/dL] (04/19/16 8:12 AM) eGFR 76 mL/min/1.73m2 1 *NA* (04/19/16 8:12 AM) BUN [7-22 mg/dL] 14 mg/dL (04/19/16 8:12 AM) B/C Ratio [6-25] 16 (04/19/16 8:12 AM) Glucose Lvl [70-99 70 mg/dL mg/dL] (04/19/16 8:12 AM) Total Protein 7.8 g/dL [6.4-8.4 g/dL] (04/19/16 8:12 AM) Albumin Lvl [3.5-5.0 4.1 g/dL g/dL] (04/19/16 8:12 AM) Globulin [2.0-4.0 3.7 g/dL g/dL] (04/19/16 8:12 AM) A/G Ratio [0.7-1.6] 1.1 (04/19/16 8:12 AM) Calcium Lvl 9.2 mg/dL [8.5-10.5 mg/dL] (04/19/16 8:12 AM) ALT [0-65 unit/L] 41 unit/L (04/19/16 8:12 AM) AST [0-37 unit/L] 30 unit/L (04/19/16 8:12 AM) Alk Phos [39-136 118 unit/L unit/L] (04/19/16 8:12 AM) Bili Total [0.2-1.3 0.5 mg/dL mg/dL] (04/19/16 8:12 AM) Vitamin D, 25-OH, 35 ng/mL Total [30-100 ng/mL] (04/19/16 8:12 AM) 1Result Comment: The eGFR is calculated using [...] be mul tiplied by the estimated BMI. LIPIDS Most recent to 1 oldest [Reference Range]: CHD Risk [3.90-5.80] 1.74 *LOW* (04/19/16 8:12 AM) Chol [<=199 mg/dL] 202 mg/dL *HI* (04/19/16 8:12 AM) Trig [<=149 mg/dL] 67 mg/dL (04/19/16 8:12 AM) HDL [>=61 mg/dL] 116 mg/dL (04/19/16 8:12 AM) LDL (Calculated) 73 mg/dL [<=99 mg/dL] (04/19/16 8:12 AM) VLDL 13 *NA* (04/19/16 8:12 AM) URINE CHEM Most recent to 1 oldest [Reference Range]: U Microalb 52.3 mg/L *NA* (04/19/16 8:12 AM) U Alb/Crea [<=30.0 29.9 mcg/mg creat mcg/mg creat] (04/19/16 8:12 AM) U Creatinine 175.00 mg/dL *NA* (04/19/16 8:12 AM) HEMATOLOGY Most recent to 1 oldest [Reference Range]: WBC [3.7-10.4 K/CMM] 8.3 K/CMM (04/19/16 8:12 AM) RBC [4.20-5.40 4.71 M/CMM M/CMM] (04/19/16 8:12 AM) Hgb [12.0-16.0 g/dL] 13.8 g/dL (04/19/16 8:12 AM) Hct [36.0-48.0 %] 41.4 % (04/19/16 8:12 AM) MCV [80.0-98.0 fL] 87.8 fL (04/19/16 8:12 AM) MCH [27.0-31.0 pg] 29.3 pg (04/19/16 8:12 AM) MCHC [32.0-36.0 33.4 g/dL g/dL] (04/19/16 8:12 AM) RDW [11.5-14.5 %] 13.3 % (04/19/16 8:12 AM) Platelet [133-450 293 K/CMM K/CMM] (04/19/16 8:12 AM) MPV [7.4-10.4 fL] 6.7 fL *LOW* (04/19/16 8:12 AM) Segs [45.0-75.0 %] 20.0 % *LOW* (04/19/16 8:12 AM) Bands [0.0-11.0 %] 0.0 % (04/19/16 8:12 AM) Lymphocytes 51.0 % [20.0-40.0 %] *HI* (04/19/16 8:12 AM) Atypical Lymphs 18.0 % [<=0.0 %] *HI* (04/19/16 8:12 AM) Monocytes [2.0-12.0 8.0 % %] (04/19/16 8:12 AM) Eosinophils [0.0-4.0 2.0 % %] (04/19/16 8:12 AM) Basophils [0.0-1.0 1.0 % %] (04/19/16 8:12 AM) Segs-Bands # 1.7 K/CMM [1.5-8.1 K/CMM] (04/19/16 8:12 AM) Lymphocytes # 5.7 K/CMM [1.0-5.5 K/CMM] *HI* (04/19/16 8:12 AM) Monocytes # [0.0-0.8 0.7 K/CMM K/CMM] (04/19/16 8:12 AM) Eosinophils # 0.2 K/CMM [0.0-0.5 K/CMM] (04/19/16 8:12 AM) Basophils # [0.0-0.2 0.1 K/CMM K/CMM] (04/19/16 8:12 AM) Target Cell Slight *Unknown* (04/19/16 8:12 AM) Stomatocyte Slight *Unknown* (04/19/16 8:12 AM) Plt Morph Normal (04/19/16 8:12 AM) Immunizations Not Given Vaccine Date Status Refusal [...]
--- OUTSIDE RECORDS SUMMARY | 2019-03-22 01:55 | XMS REPORT | Summary of Care ---
Author Organization Unknown Address Unknown Phone Unavailable Encounter [facility](ANAYELI) [phone] Date(s): 07/28/14 - 07/30/14 [facility] [address] Discharge Disposition: Home Physician Attending: Cole Durand DO Physician Admitting: Cole Durand DO Reason for Visit VISION CHANGES, [place]AX[place] Vital Signs 1 2 3 Most recent to oldest [Reference Range]: 152.4 cm (07/28/14 10:46 PM) 154.94 cm (07/28/14 4:58 PM) Height 98.2 DegF (07/30/14 8:00 AM) 97.7 DegF (07/30/14 4:00 AM) 98.1 DegF (07/30/14 12:00 AM) Temperature Oral [96.4-99.1 DegF] 114 mmHg (07/30/14 8:00 AM) 120 mmHg (07/30/14 4:00 AM) 149 mmHg *HI* (07/30/14 12:00 AM) Systolic Blood Pressure [90-140 mmHg] 69 mmHg (07/30/14 8:00 AM) 66 mmHg (07/30/14 4:00 AM) 78 mmHg (07/30/14 12:00 AM) Diastolic Blood Pressure [60-90 mmHg] 16 BRMIN (07/30/14 8:26 AM) 16 BRMIN (07/30/14 8:00 AM) 18 BRMIN (07/30/14 4:00 AM) Respiratory Rate [14-20 BRMIN] 79 bpm (07/30/14 8:00 AM) 64 bpm (07/30/14 4:00 AM) 72 bpm (07/30/14 12:00 AM) Peripheral Pulse Rate [60-100 bpm] 63.636 kg (07/28/14 10:46 PM) 85.909 kg (07/28/14 4:58 PM) Weight 27.4 m2 (07/28/14 10:46 PM) 35.79 m2 (07/28/14 4:58 PM) Body Mass Index Problem List Condition Effective Dates Status Health Status Informant Appendectomy(Confirm Active ed) Bloody 05/05/11 Active stool(Confirmed) Colitis(Confirmed) 05/18/11 Active Depressed(Confirmed) Active Diabetes(Confirmed) Resolved Diabetic Active nephropathy(Confirme d) Diarrhea(Confirmed) Active Hysterectomy(Confirm Active ed) Nausea(Confirmed) Active Pinched Resolved nerve(Confirmed)1 Sepsis(Confirmed) Active Shortness of < 04/15/11 Resolved breath(Confirmed) TIA(Confirmed) Resolved 1l4/l5 Allergies, Adverse Reactions, Alerts Substance Reaction Severity Status Remicade Active Medications acetaminophen-codeine #3 2 tab, PO, Q4H, Pain, 0 Refill(s) Start Date: 07/28/14 Status: Ordered acetaminophen-codeine #3 2 tab, Route: PO, Drug Form: TAB, Dosing Weight 85.909, kg, Q4H, PRN as needed f or pain, Start date: 07/28/14 21:19:00, Stop date: 08/27/14 21:18:00 Notes: Do not exceed 4gm/day of acetaminophen. (Same as: Tylenol with Codeine # 3) Start Date: 07/28/14 Stop Date: 07/30/14 Status: Discontinued Aciphex 20 mg, Route: PO, Drug form: ECTAB, BID, Dosing Weight 85.909, kg, Start date: 1 9:00:00, Duration: 30 day, Stop date: 08/27/14 17:00:00 Start Date: 07/29/14 Stop Date: 07/28/14 Status: Deleted Advair Diskus 250 mcg-50 mcg inhalation powder 1 puff, Route: INHALATION, Drug Form: AERO, Dosing Weight 85.909, kg, BID, Start date: 07/29/14 9:00:00, Duration: 30 day, Stop date: 08/27/14 17:00:00 Notes: (Same as: Advair) Start Date: 07/29/14 Stop Date: 07/30/14 Status: Discontinued albuterol 1.25 mg, 3 mL, Route: NEB, Drug form: SOLN, RQ4H, PRN Respiratory Protocol, Star t date: 07/28/14 22:57:00, Duration: 30 day, Stop date: 08/27/14 22:56:00 Notes: SEE RT DOCUMENTATION (Same as: Proventil) Start Date: 07/28/14 Stop Date: 07/30/14 Status: Discontinued Asacol HD 800 mg oral enteric coated tablet 800 mg=1 tab, PO, TID, # 252 tab, 0 Refill(s) Start Date: 07/28/14 Status: Ordered aspirin 81 mg tablet, enteric coated 81 mg, 1 tab, Route: PO, Drug form: ECTAB, Daily, Dosing Weight 63.636, kg, Star t date: 07/29/14 9:00:00, Duration: 30 day, Stop date: 08/27/14 9:00:00 Notes: Do not crush or chew.(Same As: Ecotrin) Start Date: 07/29/14 Stop Date: 07/30/14 Status: Discontinued aspirin 81 mg tablet, enteric coated 81 mg=1 tab, PO, Daily, # 30 tab, 0 Refill(s) Start Date: 07/30/14 Status: Ordered atropine 0.5 mg, 5 mL, Route: IVP, Drug form: INJ, PRN, Dosing Weight 63.636, kg, PRN Bra dycardia, Start date: 07/29/14 23:44:00, Duration: 30 day, Stop date: 08/28/14 2 2:43:00, symptomatic bradycardia, HR <40/minute Start Date: 07/29/14 Stop Date: 07/30/14 Status: Discontinued Benadryl 25 mg, 1 tab, Route: PO, Drug form: TAB, TID, Dosing Weight 63.636, kg, PRN Itch ing, Start date: 07/29/14 7:47:00, Duration: 30 day, Stop date: 08/28/14 7:46:00 Start Date: 07/29/14 Stop Date: 07/30/14 Status: Discontinued buPROPion 450 mg, 3 tab, Route: PO, Drug form: ERTAB, Daily, Dosing Weight 85.909, kg, Sta rt date: 07/29/14 9:00:00, Duration: 30 day, Stop date: 08/27/14 9:00:00 Notes: (Do not crush) (Same As: Wellbutrin SR) Start Date: 07/29/14 Stop Date: 07/30/14 Status: Discontinued Calcium 600+D Plus Minerals 1 tab, CHEW, Daily, 0 Refill(s) Start Date: 07/28/14 Status: Ordered cholecalciferol 400 IntlUnit, 1 tab, Route: PO, Drug form: TAB, Daily, Dosing Weight 85.909, kg, Start date: 07/29/14 9:00:00, Duration: 30 day, Stop date: 08/27/14 9:00:00 Notes: Same as Vitamin D3 Start Date: 07/29/14 Stop Date: 07/30/14 Status: Discontinued cloNIDine 0.1 mg oral tablet 0.1 mg, 1 tab, Route: PO, Drug form: TAB, Q8H, Dosing Weight 63.636, kg, PRN Elaine vated BP, Start date: 07/29/14 7:47:00, Duration: 30 day, Stop date: 08/28/14 7: 46:00, SBP >160 Notes: (Same As: Catapres) Start Date: 07/29/14 Stop Date: 07/30/14 Status: Discontinued D5W 1/2NS 1,000 mL 1,000 mL, Rate: 75 ml/hr, Infuse over: 13.3 hr, Route: IV, Dosing Weight 85.909 kg, Total Volume: 1,000, Priority: STAT, Start date: 07/28/14 20:06:00, Duration : 30 day, Stop date: 08/27/14 20:05:00 Start Date: 07/28/14 Stop Date: 07/30/14 Status: Discontinued Delzicol 800 mg, 2 cap, Route: PO, Drug form: DRC, TID, Dosing Weight 85.909, kg, Start d ate: 07/28/14 22:01:00, Stop date: 08/27/14 17:00:00 Notes: (Same as: Delzicol) Start Date: 07/28/14 Stop Date: 07/30/14 Status: Discontinued Dextrose 50% Syringe 25 gm, 50 mL, Route: IVP, Drug Form: INJ, Dosing Weight 63.636, kg, PRN, PRN Blo od Glucose Results, Start date: 07/28/14 23:05:00, Duration: 30 day, Stop date: 08/27/14 22:04:00 Start Date: 07/28/14 Stop Date: 07/30/14 Status: Discontinued Dextrose 50% Syringe 12.5 gm, 25 mL, Route: IVP, Drug Form: INJ, Dosing Weight 63.636, kg, PRN, PRN B lood Glucose Results, Start date: 07/28/14 23:05:00, Duration: 30 day, Stop date : 08/27/14 22:04:00 Start Date: 07/28/14 Stop Date: 07/30/14 Status: Discontinued Dextrose 50% Syringe 12.5 gm, Route: IVP, Dosing Weight 85.909, kg, ONCE, STAT, Start date: 07/28/14 17:55:00, Stop date: 07/28/14 17:55:00 Start Date: 07/28/14 Stop Date: 07/28/14 Status: Completed folic acid 0.4 mg, 1 tab, Route: PO, Drug form: TAB, Breakfast, Dosing Weight 85.909, kg, S tart date: 07/29/14 8:00:00, Duration: 30 day, Stop date: 08/27/14 8:00:00 Start Date: 07/29/14 Stop Date: 07/30/14 Status: Discontinued folic acid 0.4 mg oral tablet 0.4 mg=1 tab, PO, Daily, # 100 tab, 0 Refill(s) Start Date: 07/28/14 Status: Ordered gabapentin 400 mg oral capsule 400 mg, 1 cap, Route: PO, Drug form: CAP, TID, Dosing Weight 85.909, kg, Start d ate: 07/28/14 23:00:00, Duration: 30 day, Stop date: 08/27/14 16:00:00 Notes: (Same as: Neurontin) Start Date: 07/28/14 Stop Date: 07/30/14 Status: Discontinued gabapentin 600 mg oral tablet 600 mg, 2 cap, Route: PO, Drug form: CAP, TID, Dosing Weight 85.909, kg, Start d ate: 07/28/14 23:00:00, Duration: 30 day, Stop date: 08/27/14 16:00:00 Notes: (Same as: Neurontin) Start Date: 07/28/14 Stop Date: 07/30/14 Status: Discontinued glucagon 1 mg, Route: IM, Drug form: PDR/INJ, PRN, Dosing Weight 63.636, kg, PRN Blood Gl ucose Results, Start date: 07/28/14 23:05:00, Duration: 30 day, Stop date: 08/27 22:04:00 Start Date: 07/28/14 Stop Date: 07/30/14 Status: Discontinued influenza virus vaccine, inactivated 0.5 mL, Route: IM, Drug Form: SUSP, Daily, Start date: 07/29/14 9:00:00, Duratio n: 1 doses or times, Stop date: 07/29/14 9:00:00 Notes: (Same as: Fluzone Quadrivalent) Start Date: 07/29/14 Stop Date: 07/29/14 Status: Completed insulin aspart 1 unit, 0.01 mL, Route: SUB-Q, Drug form: SOLN, TID-Before Meals, Dosing Weight 63.636, kg, PRN Blood Glucose Results, Start date: 07/28/14 23:05:00, Duration: 30 day, Stop date: 08/27/14 23:04:00 Notes: Roll in palms of hands gently; Do not shake vigorously. (Same as: NovoLO G)"single patient use only" Stable for 28 days at room temperature.Expires in _ ____ days from Date Start Date: 07/28/14 Stop Date: 07/30/14 Status: Discontinued insulin aspart 3 unit, 0.03 mL, Route: SUB-Q, Drug form: SOLN, TID-Before Meals, Dosing Weight 63.636, kg, PRN Blood Glucose Results, Start date: 07/28/14 23:05:00, Duration: 30 day, Stop date: 08/27/14 23:04:00 Notes: Roll in palms of hands gently; Do not shake vigorously. (Same as: NovoLO G)"single patient use only" Stable for 28 days at room temperature.Expires in _ ____ days from Date Start Date: 07/28/14 Stop Date: 07/30/14 Status: Discontinued insulin aspart 4 unit, 0.04 mL, Route: SUB-Q, Drug form: SOLN, TID-Before Meals, Dosing Weight 63.636, kg, PRN Blood Glucose Results, Start date: 07/28/14 23:05:00, Duration: 30 day, Stop date: 08/27/14 23:04:00 Notes: Roll in palms of hands gently; Do not shake vigorously. (Same as: NovoLO G)"single patient use only" Stable for 28 days at room temperature.Expires in _ ____ days from Date Start Date: 07/28/14 Stop Date: 07/30/14 Status: Discontinued insulin aspart 5 unit, 0.05 mL, Route: SUB-Q, Drug form: SOLN, TID-Before Meals, Dosing Weight 63.636, kg, PRN Blood Glucose Results, Start date: 07/28/14 23:05:00, Duration: 30 day, Stop date: 08/27/14 23:04:00 Notes: Roll in palms of hands gently; Do not shake vigorously. (Same as: NovoLO G)"single patient use only" Stable for 28 days at room temperature.Expires in _ ____ days from Date Start Date: 07/28/14 Stop Date: 07/30/14 Status: Discontinued insulin aspart 2 unit, 0.02 mL, Route: SUB-Q, Drug form: SOLN, TID-Before Meals, Dosing Weight 63.636, kg, PRN Blood Glucose Results, Start date: 07/28/14 23:05:00, Duration: 30 day, Stop date: 08/27/14 23:04:00 Notes: Roll in palms of hands gently; Do not shake vigorously. (Same as: NovoLO G)"single patient use only" Stable for 28 days at room temperature.Expires in _ ____ days from Date Start Date: 07/28/14 Stop Date: 07/30/14 Status: Discontinued insulin aspart 3 unit, 0.03 mL, Route: SUB-Q, Drug form: SOLN, Bedtime, Dosing Weight 63.636, k g, PRN Blood Glucose Results, Start date: 07/28/14 23:05:00, Duration: 30 day, S top date: 08/27/14 23:04:00 Notes: Roll in palms of hands gently; Do not shake vigorously. (Same as: NovoLO G)"single patient use only" Stable for 28 days at room temperature.Expires in _ ____ days from Date Start Date: 07/28/14 Stop Date: 07/30/14 Status: Discontinued insulin aspart 4 unit, 0.04 mL, Route: SUB-Q, Drug form: SOLN, Bedtime, Dosing Weight 63.636, k g, PRN Blood Glucose Results, Start date: 07/28/14 23:05:00, Duration: 30 day, S top date: 08/27/14 23:04:00 Notes: Roll in palms of hands gently; Do not shake vigorously. (Same as: NovoLO G)"single patient use only" Stable for 28 days at room temperature.Expires in _ ____ days from Date Start Date: 07/28/14 Stop Date: 07/30/14 Status: Discontinued insulin aspart 2 unit, 0.02 mL, Route: SUB-Q, Drug form: SOLN, Bedtime, Dosing Weight 63.636, k g, PRN Blood Glucose Results, Start date: 07/28/14 23:05:00, Duration: 30 day, S top date: 08/27/14 23:04:00 Notes: Roll in palms of hands gently; Do not shake vigorously. (Same as: NovoLO G)"single patient use only" Stable for 28 days at room temperature.Expires in _ ____ days from Date Start Date: 07/28/14 Stop Date: 07/30/14 Status: Discontinued insulin aspart 1 unit, 0.01 mL, Route: SUB-Q, Drug form: SOLN, Bedtime, Dosing Weight 63.636, k g, PRN Blood Glucose Results, Start date: 07/28/14 23:05:00, Duration: 30 day, S top date: 08/27/14 23:04:00 Notes: Roll in palms of hands gently; Do not shake vigorously. (Same as: NovoLO G)"single patient use only" Stable for 28 days at room temperature.Expires in _ ____ days from Date Start Date: 07/28/14 Stop Date: 07/30/14 Status: Discontinued insulin detemir 30 unit, 0.3 mL, Route: SUB-Q, Drug form: INJ, Q12H, Dosing Weight 85.909, kg, S tart date: 07/29/14 9:00:00, Duration: 30 day, Stop date: 08/27/14 21:00:00 Notes: Same as Rox not hold insulin without contacting prescriber "single patient use only" Start Date: 07/29/14 Stop Date: 07/30/14 Status: Discontinued LaMICtal 200 mg, 2 tab, Route: PO, Drug form: TAB, Daily, Dosing Weight 85.909, kg, Start date: 07/29/14 9:00:00, Duration: 30 day, Stop date: 08/27/14 9:00:00 Notes: (Same as:LaMICtal) Start Date: 07/29/14 Stop Date: 07/30/14 Status: Discontinued LaMICtal 200 mg oral tablet 200 mg=1 tab, PO, Daily, # 180 tab, 0 Refill(s) Start Date: 07/28/14 Status: Ordered Lipitor 40 mg, 1 tab, Route: PO, Drug form: TAB, QPM, Dosing Weight 85.909, kg, Start da te: 07/28/14 22:03:00, Duration: 30 day, Stop date: 08/27/14 17:00:00 Notes: (Same as: Lipitor) Start Date: 07/28/14 Stop Date: 07/30/14 Status: Discontinued montelukast 10 mg, 1 tab, Route: PO, Drug form: TAB, Daily, Dosing Weight 85.909, kg, Start date: 07/29/14 9:00:00, Duration: 30 day, Stop date: 08/27/14 9:00:00 Notes: (Same as:Singulair) Start Date: 07/29/14 Stop Date: 07/30/14 Status: Discontinued multivitamin 1 tab, Route: PO, Drug Form: TAB, Dosing Weight 85.909, kg, Breakfast, Start sarah e: 07/29/14 8:00:00, Duration: 30 day, Stop date: 08/27/14 8:00:00 Notes: Give with food.(Same As : Therapeutic multivitamins) Start Date: 07/29/14 Stop Date: 07/30/14 Status: Discontinued multivitamin with minerals 1 tab, Route: PO, Drug Form: TAB, Dosing Weight 85.909, kg, Daily, Start date: 1 9:00:00, Duration: 30 day, Stop date: 08/27/14 9:00:00 Notes: (Same as:Thera-M, Theragran-M) Give with food. Start Date: 07/29/14 Stop Date: 07/30/14 Status: Discontinued Myrbetriq 50 mg oral tablet, extended release 50 mg=1 tab, PO, Daily, 0 Refill(s) Start Date: 07/28/14 Status: Ordered nitroglycerin 0.4 mg sublingual tablet 0.4 mg, 1 tab, Route: SL, Drug form: TAB, Q5Min, Dosing Weight 63.636, kg, PRN C hest Pain, Start date: 07/29/14 23:44:00, Duration: 30 day, Stop date: 08/28/14 22:43:00, Chest Pain,repeat Q5 minutes for total of 3 doses Notes: (Same as:Nitroquick, Nitrostat)"Do Not Crush" Sublingual tablet Start Date: 07/29/14 Stop Date: 07/30/14 Status: Discontinued NovoLOG Route: SUB-Q, TID-Meals, Dosing Weight 85.909, kg, Start date: 07/29/14 8:00:00, Duration: 30 day, Stop date: 08/27/14 17:00:00 Start Date: 07/29/14 Stop Date: 07/29/14 Status: Discontinued NovoLOG 6 units, SUB-Q, TID-Before Meals, blood sugar 351 or greater, 0 Refill(s) Special Instructions: blood sugar 351 or greater Start Date: 07/29/14 Status: Ordered NovoLOG 2 units, SUB-Q, TID-Before Meals, fof blood sugar 200-275, 0 Refill(s) Special Instructions: fof blood sugar 200-275 Start Date: 07/29/14 Status: Ordered NovoLOG 3 units, SUB-Q, TID-Before Meals, base dosage, 0 Refill(s) Special Instructions: base dosage Start Date: 07/29/14 Status: Ordered NovoLOG 4 units, SUB-Q, TID-Before Meals, for blood sugar 276-350, 0 Refill(s) Special Instructions: for blood sugar 276-350 Start Date: 07/29/14 Status: Ordered Protonix 40 mg, 1 tab, Route: PO, Drug form: ECTAB, Before Dinner, Start date: 07/29/14 1 6:30:00, Duration: 30 day, Stop date: 08/27/14 16:30:00 Notes: Tablet should not be chewed or crushed.(Same as: Protonix) Start Date: 07/29/14 Stop Date: 07/30/14 Status: Discontinued Saline Flush 0.9% 10 ml, Route: IVP, Drug Form: INJ, Dosing Weight 63.636, kg, PRN, PRN Line Flush , Start date: 07/28/14 23:00:00, Duration: 30 day, Stop date: 08/27/14 21:59:00 Notes: preservative free. Start Date: 07/28/14 Stop Date: 07/30/14 Status: Discontinued Saline Flush 0.9% 10 ml, Route: IVP, Drug Form: INJ, Dosing Weight 63.636, kg, Q12H, Start date: 1 9:00:00, Duration: 30 day, Stop date: 08/27/14 21:00:00 Notes: preservative free. Start Date: 07/29/14 Stop Date: 07/30/14 Status: Discontinued Sodium Chloride 0.9% IV 1,000 mL + M.V.I.-12 10 mL Daily + folic acid IV 1 mg Da mariya + thiamine IV 1 1,000 mL, Rate: 100 ml/hr, Infuse over: 10.1 hr, Route: IV, Dosing Weight 85.909 kg, Total Volume: 1,011.2, Start date: 07/28/14 18:17:00, Duration: 3 day, Stop date: 07/31/14 18:16:00 Start Date: 07/28/14 Stop Date: 07/30/14 Status: Discontinued Synthroid 150 microgram, 1 tab, Route: PO, Drug form: TAB, Q630AM, Dosing Weight 85.909, k g, Start date: 07/29/14 6:30:00, Duration: 30 day, Stop date: 08/27/14 6:30:00 Notes: Take 1 hour before or 2 hours after meal; Enteral feeds may interefere wi th the absorption of this medication. (Same as: Levothroid) Start Date: 07/29/14 Stop Date: 07/30/14 Status: Discontinued thiamine 100 mg, 1 tab, Route: PO, Drug form: TAB, Breakfast, Dosing Weight 85.909, kg, S tart date: 07/29/14 8:00:00, Duration: 30 day, Stop date: 08/27/14 8:00:00 Notes: (Same As: Vitamin B1) Start Date: 07/29/14 Stop Date: 07/30/14 Status: Discontinued tramadol 300 mg, 6 tab, Route: PO, Drug form: TAB, Daily, Dosing Weight 85.909, kg, Start date: 07/29/14 9:00:00, Duration: 30 day, Stop date: 08/27/14 9:00:00 Notes: Not to exceed 400mg/day. (Same As: Ultram) Start Date: 07/29/14 Stop Date: 07/30/14 Status: Discontinued Vitamin D3 400 intl units oral capsule 400 IntlUnit=1 cap, PO, Daily, 0 Refill(s) Start Date: 07/28/14 Status: Ordered Xopenex HFA 2 puff, Route: INHALATION, Drug Form: AERO/A, Dosing Weight 85.909, kg, Q4H, PRN as needed for wheezing, Start date: 07/28/14 21:18:00, Stop date: 08/27/14 21:1 7:00 Start Date: 07/28/14 Stop Date: 07/28/14 Status: Deleted Zofran 4 mg, 2 mL, Route: IVP, Drug form: INJ, Q8H, Dosing Weight 63.636, kg, PRN as ne eded for nausea/vomiting, Priority: STAT, Start date: 07/29/14 7:47:00, Duration : 30 day, Stop date: 08/28/14 7:46:00 Notes: (Same as: Zofran) Start Date: 07/29/14 Stop Date: 07/30/14 Status: Discontinued Results ELECTROLYTES Most recent to 1 2 oldest [Reference Range]: Sodium Lvl [135-145 140 mEq/L 139 mEq/L mEq/L] (07/29/14 4:59 AM) (07/28/14 6:00 PM) Potassium Lvl 4.3 mEq/L 3.8 mEq/L [3.5-5.1 mEq/L] (07/29/14 4:59 AM) (07/28/14 6:00 PM) Chloride Lvl [95-109 104 mEq/L 102 mEq/L mEq/L] (07/29/14 4:59 AM) (07/28/14 6:00 PM) CO2 [24-32 mEq/L] 30 mEq/L 31 mEq/L (07/29/14 4:59 AM) (07/28/14 6:00 PM) AGAP [10.0-20.0 10.3 mEq/L 9.8 mEq/L mEq/L] (07/29/14 4:59 AM) *LOW* (07/28/14 6:00 PM) CHEM PANEL Most recent to 1 2 oldest [Reference Range]: Creatinine Lvl 0.8 mg/dL 0.7 mg/dL [0.5-1.4 mg/dL] (07/29/14 4:59 AM) (07/28/14 6:00 PM) eGFR 83 mL/min/1.73m2 1 97 mL/min/1.73m2 2 *NA* *NA* (07/29/14 4:59 AM) (07/28/14 6:00 PM) BUN [7-22 mg/dL] 10 mg/dL 8 mg/dL (07/29/14 4:59 AM) (07/28/14 6:00 PM) B/C Ratio [6-25] 11 (07/28/14 6:00 PM) Glucose Lvl [70-99 202 mg/dL 3 56 mg/dL 4 mg/dL] *HI* *LOW* (07/29/14 4:59 AM) (07/28/14 6:00 PM) Total Protein 7.4 g/dL [6.4-8.4 g/dL] (07/28/14 6:00 PM) Albumin Lvl [3.5-5.0 3.7 g/dL g/dL] (07/28/14 6:00 PM) Globulin [2.0-4.0 3.7 g/dL g/dL] (07/28/14 6:00 PM) A/G Ratio [0.7-1.6] 1.0 (07/28/14 6:00 PM) Calcium Lvl 8.8 mg/dL 9.1 mg/dL [8.5-10.5 mg/dL] (07/29/14 4:59 AM) (07/28/14 6:00 PM) ALT [0-65 unit/L] 46 unit/L (07/28/14 6:00 PM) AST [0-37 unit/L] 33 unit/L (07/28/14 6:00 PM) Alk Phos [39-136 128 unit/L unit/L] (07/28/14 6:00 PM) Bili Total [0.2-1.3 0.3 mg/dL mg/dL] (07/28/14 6:00 PM) 1Result Comment: The eGFR is calculated [...] values reflect the clinical guidelines of the [place] [employer]. 4Interpretive Data: Adult reference range values reflect the clinical guidelines of the [place] [employer]. CARDIAC ENZYMES Most recent to 1 2 oldest [Reference Range]: Total CK [12-191 281 unit/L unit/L] *HI* (07/28/14 6:00 PM) CK MB [0.5-3.6 5.0 ng/mL ng/mL] *HI* (07/28/14 6:00 PM) CK MB Index 1.8 [0.0-2.5] (07/28/14 6:00 PM) Troponin-I <0.02 ng/mL [0.00-0.40 ng/mL] (07/28/14 6:00 PM) LIPIDS Most recent to 1 2 oldest [Reference Range]: CHD Risk [3.90-5.80] 1.77 *LOW* (07/29/14 4:59 AM) Chol [<=199 mg/dL] 161 mg/dL (07/29/14 4:59 AM) Trig [<=149 mg/dL] 108 mg/dL (07/29/14 4:59 AM) HDL [>=61 mg/dL] 91 mg/dL (07/29/14 4:59 AM) LDL (Calculated) 48 mg/dL [<=99 mg/dL] (07/29/14 4:59 AM) VLDL 22 *NA* (07/29/14 4:59 AM) URINE AND STOOL Most recent to 1 2 oldest [Reference Range]: UA Turbidity [Clear] Clear (07/28/14 11:50 PM) UA Color Ltyellow *NA* (07/28/14 11:50 PM) UA pH [5.0-8.0] 7.0 (07/28/14 11:50 PM) UA Spec Grav 1.023 [<=1.030] (07/28/14 11:50 PM) UA Glucose [Negative 500 mg/dL mg/dL] *ABN* (07/28/14 11:50 PM) UA Blood [Negative] Negative (07/28/14 11:50 PM) UA Ketones [Negative Negative mg/dL mg/dL] *NA* (07/28/14 11:50 PM) UA Protein [Negative Negative mg/dL mg/dL] (07/28/14 11:50 PM) UA Urobilinogen <=1.0 mg/dL [0.1-1.0 mg/dL] *NA* (07/28/14 11:50 PM) UA Bili [Negative] Negative *NA* (07/28/14 11:50 PM) UA Leuk Est Negative [Negative] (07/28/14 11:50 PM) UA Nitrite Negative [Negative] (07/28/14 11:50 PM) UA WBC [0-5 /HPF] 1 /HPF (07/28/14 11:50 PM) UA RBC [0-2 /HPF] <1 /HPF (07/28/14 11:50 PM) UA Sq Epi None Seen *NA* (07/28/14 11:50 PM) HEMATOLOGY Most recent to 1 2 oldest [Reference Range]: WBC [3.7-10.4 K/CMM] 5.9 K/CMM 6.9 K/CMM (07/29/14 4:59 AM) (07/28/14 6:00 PM) RBC [4.20-5.40 4.29 M/CMM 4.85 M/CMM M/CMM] (07/29/14 4:59 AM) (07/28/14 6:00 PM) Hgb [12.0-16.0 g/dL] 12.5 g/dL 14.0 g/dL (07/29/14 4:59 AM) (07/28/14 6:00 PM) Hct [36.0-48.0 %] 37.6 % 42.1 % (07/29/14 4:59 AM) (07/28/14 6:00 PM) MCV [80.0-98.0 fL] 87.7 fL 86.8 fL (07/29/14 4:59 AM) (07/28/14 6:00 PM) MCH [27.0-31.0 pg] 29.2 pg 28.9 pg (07/29/14 4:59 AM) (07/28/14 6:00 PM) MCHC [32.0-36.0 33.3 g/dL 33.3 g/dL g/dL] (07/29/14 4:59 AM) (07/28/14 6:00 PM) RDW [11.5-14.5 %] 13.4 % 13.0 % (07/29/14 4:59 AM) (07/28/14 6:00 PM) Platelet [133-450 240 K/CMM 283 K/CMM K/CMM] (07/29/14 4:59 AM) (07/28/14 6:00 PM) MPV [7.4-10.4 fL] 6.9 fL 6.7 fL *LOW* *LOW* (07/29/14 4:59 AM) (07/28/14 6:00 PM) Segs [45.0-75.0 %] 34.4 % 29.4 % *LOW* *LOW* (07/29/14 4:59 AM) (07/28/14 6:00 PM) Lymphocytes 54.2 % 58.3 % [20.0-40.0 %] *HI* *HI* (07/29/14 4:59 AM) (07/28/14 6:00 PM) Monocytes [2.0-12.0 9.0 % 9.8 % %] (07/29/14 4:59 AM) (07/28/14 6:00 PM) Eosinophils [0.0-4.0 2.0 % 1.9 % %] (07/29/14 4:59 AM) (07/28/14 6:00 PM) Basophils [0.0-1.0 0.4 % 0.6 % %] (07/29/14 4:59 AM) (07/28/14 6:00 PM) Segs-Bands # 2.0 K/CMM 2.0 K/CMM [1.5-8.1 K/CMM] (07/29/14 4:59 AM) (07/28/14 6:00 PM) Lymphocytes # 3.2 K/CMM 4.0 K/CMM [1.0-5.5 K/CMM] (07/29/14 4:59 AM) (07/28/14 6:00 PM) Monocytes # [0.0-0.8 0.5 K/CMM 0.7 K/CMM K/CMM] (07/29/14 4:59 AM) (07/28/14 6:00 PM) Eosinophils # 0.1 K/CMM 0.1 K/CMM [0.0-0.5 K/CMM] (07/29/14 4:59 AM) (07/28/14 6:00 PM) Sed Rate [0-20 8 mm/hr mm/hr] (07/29/14 4:59 AM) PT [12.0-14.7 11.7 seconds seconds] *LOW* (07/28/14 6:00 PM) INR [0.85-1.17] 0.86 5 (07/28/14 6:00 PM) PTT [22.9-35.8 27.0 seconds 6 seconds] (07/28/14 6:00 PM) 5Interpretive Data: RECOMMENDED RANGES FOR PROTIME INR: 2.0-3.0 for most medical and surgical thromboembolic states. 2.5-3.5 for artificial heart valves and recurrent embolism. INR SHOULD BE USED ONLY FOR PATIENTS ON STABLE ANTICOAGULANT THERAPY. 6Interpretive Data: Heparin Therapeutic Range: 57 - 92 Seconds Medications Administered During Your Visit No data available for this section Immunizations Vaccine Date Refusal Reason influenza virus vaccine, inactivated 07/30/14 Patient Refuses Procedures Procedure Type Body Site Date of Procedure Related Diagnosis Mastoidectomy Oophorectomy Social History Social History Type Response Alcohol Use: Never Smoking Status Never smoker, Exposure to Tobacco Smoke None, Cigarette Smoking Last 365 Days Yes, Reg Smoking Cessation Counseling No1 1no change Assessment and Plan Extracted from: Title: Clinical Document Author: Cole Durand Date: 07/29/14 Progress Daily [facility] SUBJECTIVE Pt is feeling well this morning with no CUELLO, dizziness, CP or SOB. ambulating well OBJECTIVE Vital Signs (last 24 hrs) Last Charted Minimum Maximum Temp98.5 (JUL 29 10:50)98.0 (JUL 29 07:20)H 99.2 (JUL 28 16:58) Heart Rate86 (JUL 29 10:50)74 (JUL 29 07:20)H 108 (JUL 28 16:58) Resp Rate 18 (JUL 29 10:50)14 (JUL 17 23:31)18 (JUL 17 21:42) SBPH 161 (JUL 29 10:50)120 (JUL 28 22:23)H 181 (JUL 28 16:58) DBP83 (JUL 29 10:50)70 (JUL 18 04:00)H 105 (JUL 17 16:58) Dvvnom99.636 (JUL 28 22:46) Xckbwl528.4 (JUL 28 22:46) BMI27.4 (JUL 28 22:46) Labs (Last four charted values) WBC 5.9(JUL 18)6.9(JUL 17) Hgb 12.5(JUL 18)14.0(JUL 17) Hct 37.6(JUL 18)42.1(JUL 17) Plt 240(JUL 18)283(JUL 17) Na 140(OCT 18)139(OCT 17) K 4.3(OCT 18)3.8(OCT 17) CO2 30(OCT 18)31(OCT 17) Cl 104(OCT 18)102(OCT 17) Cr 0.8(OCT 18)0.7(OCT 17) BUN 10(OCT 18)8(OCT 17) Glucose Random H 202(JUL 18)L 56(OCT 17) Ca 8.8(OCT 18)9.1(OCT 17) PT L 11.7(OCT 17) INR 0.86(OCT 17) PTT 27.0(OCT 17) Troponin <0.02(OCT 17) CK MB H 5.0(JUL 28) Total CK H 281(JUL 28) Input/Output RecordInOutBal 4hr Tot 150 0 150 /1724hr Tot 480 1200 -720 ASSESSMENT & EXAM Gen. Pt is AOX4 in no acute distress HEET: Normocephalic, nontraumatic. NECK: Supple, no JVD or Lymphadenopathy LUNGS: Clear on auscultation B/l with no wheezing or crackles HEART: S1, S2.RRR with no murmurs ABDOMEN: Soft, NT/ND with good BS CENTRAL NERVOUS SYSTEM: Patient moving all extremities grossly well. LOWER EXTREMITIES: No C/C/E PLAN & TREATMENT Pt with a hx of TIA admitted with Ataxia and sinusitis and noted with Hypoglycemia -Pt is feeling well and back to her baseline -Appreciated brain MRI -F/u with Carotid doppler -F/u with nerologist consult DIAGNOSES & PROBLEMS Ataxia Polypharmacy DM Symptomatic hypoglycemia Ulcerative colitis Graves Depression Sinusitis Scheduled Meds (19):aspirin (aspirin 81 mg tablet, enteric coated), atorvastatin (Lipitor), buPROPion, cholecalciferol, fluticasone-salmeterol (Advair Diskus 250 mcg-50 mcg inhalation powder), folic acid, gabapentin (gabapentin 400 mg oral capsule), gabapentin (gabapentin 600 mg oral tablet), insulin detemir, lamoTRIgine (LaMICtal), levothyroxine (Synthroid), mesalamine (Delzicol), montelukast, multivitamin with minerals, multivitamin, pantoprazole (Protonix), sodium chloride (Saline Flush 0.9%), thiamine, tramadol Unscheduled Meds: None PRN Meds (18):Dextrose 50% in Water IV (Dextrose 50% Syringe), Dextrose 50% in Water IV (Dextrose 50% Syringe), acetaminophen-codeine (acetaminophen-codeine #3), albuterol, cloNIDine (cloNIDine 0.1 mg oral tablet), diphenhydrAMINE (Benadryl), glucagon, insulin aspart, insulin aspart, insulin aspart, insulin aspart, insulin aspart, insulin aspart, insulin aspart, insulin aspart, insulin aspart, ondansetron (Zofran), sodium chloride (Saline Flush 0.9%) One Time Meds (1):(Completed) Dextrose 50% in Water IV (Dextrose 50% Syringe) Continuous Infusions (2):Dextrose 5% with 0.45% NaCl IV 1,000 mL (D5W 1/2NS 1,000 mL), Sodium Chloride 0.9% IV 1,000 mL + multivitamin 10 mL Daily + folic acid 1 mg Daily + thiamine 100 (Sodium Chloride 0.9% IV 1,000 mL + M.V.I.-12 10 mL Daily + folic acid IV 1 mg Daily + thiamine IV 1)
--- OUTSIDE RECORDS SUMMARY | 2019-03-22 01:56 | XMS REPORT | Continuity of Care Document ---
Author Author [facility] Organization [facility] Address Unknown Phone Unavailable Care Team Providers Care Tray Setter Name Role Phone MD Theodore, Kristina WARNER Unavailable Insurance Providers Payer name Policy type / Coverage type Policy ID Covered alliance party ID Policy [place] [employer] Encounters Encounter Performer Location Date Lab Report Kristina Jaimes MD [facility] - [place] Apr 28, 2014 Allergies, Adverse Reactions, Alerts Type Substance Reaction Status Drug allergy AMOXICILLIN Active Drug allergy BACTRIM Active Drug allergy REMICAID Active Problems Problem Effective Dates Problem Status ASTHMA Apr 26, 2014 Active ALLERGIC RHINITIS Apr 26, 2014 Active DIABETES - TYPE I Apr 26, 2014 Active ABRASION, FOOT/TOE W/O INFECTION Apr 26, 2014 Active Procedures Date Description Comments Apr 26, 2014 smoking status Never smoker Medications Medication Instructions Start Date Status ACIPHEX 20 MG TBEC one tab twice a day Apr 26, 2014 Active ADVAIR DISKUS 250-50 MCG/DOSE AEPB Apr 26, 2014 Active ASACOL HD 800 MG TBEC Apr 26, 2014 Active BRINTELLIX 20 MG TABS Apr 26, 2014 Active GABAPENTIN 600 MG TABS Apr 26, 2014 Active LIPITOR 40 MG TABS Apr 26, 2014 Active SINGULAIR 10 MG TABS Apr 26, 2014 Active VYVANSE 70 MG CAPS Apr 26, 2014 Active XOPENEX HFA AERO Apr 26, 2014 Active MUPIROCIN 2 % OINT apply small amount to affected area tid Apr 26, 2014 Active Vital Signs Date Description Test Result Apr 26, 2014 weight E&M WEIGHT 138 lb Apr 26, 2014 height E&M HEIGHT 60 in Apr 26, 2014 temperature E&M TEMPERATURE 98.2 deg f Apr 26, 2014 pulse rate E&M PULSE RATE 115 /min Apr 26, 2014 blood pressure, systolic BP SYSTOLIC 139 mm Hg Apr 26, 2014 blood pressure, diastolic BP DIASTOLIC 73 mm Hg
--- OUTSIDE RECORDS SUMMARY | 2019-03-22 01:56 | XMS REPORT | Summary of Care ---
Author Author [facility] [place] Organization [facility] [place] Address Unknown Phone Unavailable Encounter ROSE MARY Duque([facility]) [id number] Date(s): 12/09/16 - 12/09/16 [facility] [place] [address] [place] [phone] Discharge Disposition: Home or Self Care Attending [...]
--- OUTSIDE RECORDS SUMMARY | 2019-03-22 01:56 | XMS REPORT | Summary of Care ---
Author Author [facility] [place] Organization [facility] [place] Address Unknown Phone Unavailable Encounter ROSE MARY Duque([place]) [id number] Date(s): 11/25/16 - 11/25/16 [facility] [place] [address] [place] [address]- [facility] [phone] Discharge Disposition: Home or Self Care Attending [...]
--- OUTSIDE RECORDS SUMMARY | 2019-03-22 01:56 | XMS REPORT ---
[facility] Address Unknown Phone Unavailable Care Team Providers Care Manager Room Name Role Phone Unavailable Unavailable Problems This patient has no known problems. Allergies, Adverse Reactions, Alerts This patient has no known allergies or adverse reactions. Medications This patient has no known medications. Encounters Start Date/Time End Date/Time Encounter Type Admission Type Attending Clinicians Care Facility Care Department Encounter ID 2019-01-18 13:50:00 2019-01-18 13:50:00 Outpatient [facility] [id number] 2018-12-21 18:55:00 2018-12-21 18:55:00 Outpatient [facility] [id number] Results Test Description Test Time Test Comments Text Results Atomic Results Result Comments S[facility] MAMM BILATERAL ED CAD DIGITAL 2018-09-20 11:19:56 - [facility]CR MAMM BILATERAL ED CAD DIGITALBILATERAL DIGITAL SCREENING MAMMOGRAM 3D/2D WITH CAD: 09/01/2018CLINICAL: Asymptomatic. Digital breast tomosynthesis was performed in addition to routine CC and MLO views. Current mammographic images were evaluated by either a [employer] M-Vu or a [employer] ImageChecker CAD (computer aided detection system). Comparison is made to exams dated 09/18/2011 mammogram, mammogram, and 06/20/2009 mammogram - [facility]-. There are scattered fibroglandular tissues in both breasts. There are benign vascular calcifications in both breasts. No suspicious mass, architectural distortion, malignant type calcification, or lymph node abnormality detected. Breast architecture is stable compared to prior exams.IMPRESSION: BENIGNThere is no mammographic evidence of malignancy. Resume annual screening mammography in one year. Elham bragg/penalyssa:09/20/2018 11:19:56 Umbrella Tipper Hand: Yareli VILA, [facility]-FWletter sent: BIRADS 1-2 Normal Mammogram BI-RADS: 2 Benign
--- OUTSIDE RECORDS SUMMARY | 2019-03-22 01:56 | XMS REPORT | Summary of Care ---
Author Author [facility] Address Unknown Phone Unavailable Encounter HQ Neto([place]) [id number] Date(s): 01/06/17 - 02/04/17 [facility] [place] Final: Muscle weakness (generalized) Final: Stiffness of unspecified joint, not elsewhere classified Final: Difficulty in walking, not elsewhere classified Discharge Disposition: Home or Self Care Attending Physician: Tyson Taveras MD Vital Signs No data available for [...]
--- OUTSIDE RECORDS SUMMARY | 2019-03-22 01:56 | XMS REPORT | Summary of Care ---
Author Author [facility] Address [address] [place] [address] Phone Unavailable Care Team Providers Care Outlet Manager Name Role Phone OFELIA Garcia, JIMENA Unavailable Unavailable MEI Garcia, BEAR Unavailable Unavailable Keena Garcia, Agnes Unavailable Unavailable BLESSING Garcia, RAMILA Unavailable Unavailable MARCIO Garcia, GALINA Unavailable Unavailable IESHA Garcia, CECILLE Unavailable Unavailable ENE Garcia, VLADISLAV Unavailable Unavailable CORY Garcia, MARTINE Unavailable Unavailable BERONICA aGrcia, CARYN Unavailable Unavailable MEI GONZALES CO, BEAR NOR[place]OD Unavailable Unavailable Blessing GONZALES CO, Ramila Unavailable Unavailable Unavailable Unavailable Functional Status Name Dates Details Functional status health issues are not documented Status: Name Dates Details Cognitive status health issues are not documented Status: Problems Name Dates Details Closed Fracture Of Multiple Hand Bones (817.0) Status: Active Infected Superficial Thigh Injury (916.9) Status: Active Mitral valve prolapse syndrome (424.0, I34.1) Status: Active Encounter for preventive health examination (V70.0, Z00.00) Status: Active Hyperactivity of bladder (596.51, N31.8) Status: Active 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 (249.50, E08.311) Status: Active Chest pain, atypical (786.59, R07.89) Status: Active Vulvovaginal candidiasis (112.1, B37.3) Status: Active Visit for screening mammogram (V76.12, Z12.31) Status: Active Postmenopausal atrophic vaginitis (627.3, N95.2) Status: Active Urinary tract infection (599.0, N39.0) Status: Active Chronic sinusitis (473.9, J32.9) Status: Active Ulcer (707.9) Status: Active BPPV (benign paroxysmal positional vertigo) (386.11, H81.10) Status: Active Asthma (493.90, J45.909) Status: Active Anemia (285.9, D64.9) Status: Active Esophageal reflux (530.81, K21.9) Status: Active Tinea corporis (110.5, B35.4) Status: Active Amnesia (retrograde) (780.93, R41.2) Status: Active Ataxic gait (781.2, R26.0) Status: Active Obesity (278.00, E66.9) Status: Active Encounter for mastoidectomy cavity debridement (383.30, H95.199) Status: Active Convulsions (780.39, R56.9) Status: Active Crohn's disease (555.9, K50.90) Status: Active Encounter for gynecological examination (V72.31, Z01.419) Status: Active Depressive disorder (311, F32.9) Status: Active Diabetic nephropathy (250.40, E11.21) Status: Active Onychomycosis (110.1, B35.1) Status: Active Procedure indicated Status: Active Incontinence in female (625.6, R32) Status: Active Cerebrovascular accident with involvement of right side of body (434.91, I63.9) Status: Active Acute left-sided thoracic back pain (724.1, M54.6) Status: Active Fall in bathtub, sequela (E929.3, W18.2XXS) Status: Active Diabetes mellitus type 1, uncontrolled, with complications (250.93, E10.8) Status: Active Encounter for long-term (current) insulin use (V58.67, Z79.4) Status: Active Essential (primary) hypertension (401.9, I10) Status: Active Graves disease (242.00, E05.00) Status: Active Hyperlipidemia (272.4, E78.5) Status: Active Hypoglycemia (251.2, E16.2) Status: Active Hypothyroidism, postablative (244.1, E89.0) Status: Active Superficial ulcer (707.9, L98.499) Status: Active Open wound of finger, initial encounter (883.0, S61.209A) Status: Active Neuralgia (729.2, M79.2) Status: Active Seizures (780.39, R56.9) Status: Active Vitamin B1 deficiency (265.1, E51.9) Status: Active Otorrhea of right ear (388.60, H92.11) Status: Active Medications Name Dates Details RABEprazole Sodium 20 MG Oral Tablet Delayed Release Take 1 tablet by mouth twice a day Quantity: 180 Agnes Brink M.D. * Start : 24-Jun-2011 Active Folic Acid 400 MCG Oral Tablet TAKE 1 TABLET DAILY DIRECTED. * Refills: 0 * Start : 30-Jun-2011 Active Thiamine HCl - 100 MG Oral Tablet TAKE 1 TABLET DAILY. * Refills: 0 * Start : 30-Jun-2011 Active Levothyroxine Sodium 137 MCG Oral Tablet TAKE 1 BY MOUTH DAILY * Quantity: 90 Refills: 1 BEAR HURLEY M.D. * Start : 07-Aug-2011 Active Calcium TABS TAKES 1 DAILY IN AM * Refills: 0 Active Oxiconazole Nitrate 1 % External Cream APPLY AND RUB IN A THIN FILM TO AFFECTED AREAS TWICE DAILY.(AM AND PM). * Quantity: 1 Refills: 2 GALINA BUCKLEY M.D. * Start : 20-Apr-2013 Active 90 GM Tube Humira 40 MG/0.8ML KIT * Refills: 0 * Start : 13-Sep-2013 Active Apidra SoloStar 100 UNIT/ML Subcutaneous Solution Pen-injector INJECT up to 15 UNITS BEFORE MEALS DIRECTED * Quantity: 30 Refills: 0 BEAR HURLEY M.D. * Start : 02-Jul-2015 Active 3 ML Pen Nucynta 100 MG Oral Tablet TAKE 1 TABLET DAILY * Quantity: 30 Refills: 0 RAMILA FUNK M.D. Active Tresiba FlexTouch 200 UNIT/ML Subcutaneous Solution Pen-injector INJECT 70 UNITS UNDER THE SKIN DAILY * Quantity: 9 Refills: 1 BEAR HURLEY M.D. * Start : 11-May-2017 Active 3 x 3 ML Pen Diclofenac Sodium 1 % Transdermal Gel APPLY SPARINGLY TO AFFECTED AREA(S) UP TO 2 TIMES DAILY * Quantity: 1 Refills: 3 GALINA BUCKLEY M.D. * Start : 11-Jul-2016 Active 100 GM Tube NovoFine 32G X 6 MM Test 5 times daily USE DIRECTED. * Quantity: 3 Refills: 5 BEAR HURLEY M.D. * Start : 07-May-2017 Active 100 Unit Box Fluzone Quadrivalent 0.25 ML Intramuscular Suspension Prefilled Syringe Flu shot in clinic today * Quantity: 1 Refills: 0 ENE Garcia VLADISLAV * Start : 14-Jul-2017 Active 0.25 ML Syringe Mupirocin Calcium 2 % External Cream APPLY AND GENTLY MASSAGE INTO AFFECTED AREA(S) TWICE DAILY. * Quantity: 1 Refills: 0 CECILLE JULIAN M.D. * Start : 14-Aug-2017 Active 15 GM Tube HumaLOG 100 UNIT/ML Subcutaneous Solution USE UP TO 80 UNITS DAILY VIA INSULIN PUMP * Quantity: 8 Refills: 0 BEAR HURLEY M.D. * Start : 29-Oct-2017 Active 10 ML Vial Coloplast Barrier Ring USE DIRECTED. * Quantity: 1 Refills: 1 BEAR HURLEY M.D. * Start : 03-Nov-2017 Active 30 Unit Box Noe Contour Next Test In Vitro Strip USE 6 STRIPS DIRECTED FOR INTENSE INSULIN THERAPY * Quantity: 5 Refills: 1 BEAR HURLEY M.D. * Start : 18-Dec-2017 Active 100 Strip Box Myrbetriq 50 MG Oral Tablet Extended Release 24 Hour TAKE 1 TABLET DAILY * Quantity: 90 Refills: 0 JIMENA GILBERT M.D. * Start : 10-Jul-2017 Active Nystatin-Triamcinolone 286071-0.1 UNIT/GM-% External Cream APPLY SPARINGLY TO AFFECTED AREA(S) 3 TIMES A DAY * Quantity: 270 Refills: 3 Agnes Brink M.D. * Start : 21-Aug-2015 Active Lidocaine 5 % External Patch apply up to 2 patches daily to affected area. Can leave on for 12 hours, then t tim off for 12 hours * Quantity: 180 Refills: 0 MARTINE RAY M.D. * Start : 05-Feb-2015 Active Gabapentin 300 MG Oral Capsule TAKE 3 CAPSULES BY MOUTH EVERY MORNING, 4 CAPSULES EVERY AFTERNOON AND 4 CAPSULE S EVERY EVENING * Quantity: 990 Refills: 0 BEAR HURLEY M.D. * Start : 14-Dec-2017 Active LamoTRIgine 150 MG Oral Tablet Take 1 tablet by mouth twice a day * Quantity: 180 Refills: 3 RAMILA FUNK M.D. * Start : 18-Dec-2015 Active Atorvastatin Calcium 40 MG Oral Tablet TAKE 1 TABLET DAILY AT BEDTIME. * Quantity: 90 Refills: 3 Agnes Brink M.D. * Start : 21-Oct-2016 Active Zovirax 5 % External Cream APPLY TO THE AFFECTED AREA OF THE LIPS 3 TIMES DAILY UNTIL HEALED * Quantity: 1 Refills: 2 Agnes Brink M.D. * Start : 20-Feb-2015 Active 5 GM Tube Clindamycin HCl - 300 MG Oral Capsule TAKE 1 CAPSULE TWICE DAILY * Quantity: 10 Refills: 1 BEAR HURLEY M.D. * Start : 03-Nov-2017 Active Losartan Potassium 25 MG Oral Tablet TAKE 1 TABLET DAILY. * Quantity: 90 Refills: 1 BEAR HURLEY M.D. * Start : 03-Nov-2017 Active Ciclopirox 8 % External Solution Apply to affected nail bed(s) and adjacent skin daily. Remove with alcohol ever y 7 days. * Quantity: 1 Refills: 0 CECILLE JULIAN M.D. * Start : 14-Aug-2017 Active 6.6 ML Bottle ValACYclovir HCl - 500 MG Oral Tablet TAKE 1 TABLET BY MOUTH DAILY * Quantity: 90 Refills: 0 MARTINE RAY M.D. * Start : 07-Aug-2017 Active Fluconazole 200 MG Oral Tablet TAKE 1 TABLET DAILY for 3 days * Quantity: 12 Refills: 0 CARYN LOCO M.D. * Start : 16-Jul-2017 Active Estrace 0.1 MG/GM Vaginal Cream apply pea size amount to outside of vagina every night for 2 weeks then use twic e a week * Quantity: 2 Refills: 6 CARYN LOCO M.D. * Start : 16-Jul-2017 Active 42.5 GM Tube Advair Diskus 500-50 MCG/DOSE Inhalation Aerosol Powder Breath Activated INHALE 1 PUFF TWICE DAILY. * Quantity: 3 Refills: 3 Agnes Brink M.D. * Start : 23-Jun-2016 Active 60 Inhaler Pack Fluticasone Propionate 50 MCG/ACT Nasal Suspension USE 2 SPRAYS IN EACH NOSTRIL ONCE DAILY * Quantity: 3 Refills: 0 Agnes Brink M.D. * Start : 19-May-2016 Active 16 GM Bottle Ecotrin Low Strength 81 MG Oral Tablet Delayed Release TAKE 1 TABLET DAILY DIRECTED. * Quantity: 30 Refills: 6 RAMILA FUNK M.D. * Start : 20-Feb-2015 Active Vitamin B1 100 MG TABS TAKE 1 TABLET DAILY DIRECTED. * Quantity: 30 Refills: 6 BLESSING Garcia RAMILA * Start : 20-Feb-2015 Active BuPROPion HCl ER (XL) 300 MG Oral Tablet Extended Release 24 Hour TAKE 1 TABLET DAILY DIRECTED. * Quantity: 90 Refills: 3 KRISTIN FUNK M.D.ISON * Start : 13-May-2016 Active Xopenex HFA 45 MCG/ACT Inhalation Aerosol INHALE 1 TO 2 PUFFS EVERY 4 TO 6 HOURS NEEDED AND DIRECTED. 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, 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) Status: Resolved History of cardiac disorder (V12.50, Z86.79) Status: Resolved History of cataract (V12.49, Z86.69) Status: Resolved History of Depressive disorder (311, F32.9) Status: Resolved History of Diabetes mellitus (250.00, E11.9) Status: Resolved History of Diabetes mellitus (250.00, E11.9) Status: Resolved History of essential hypertension (V12.59, Z86.79) Status: Resolved History of essential hypertension (V12.59, Z86.79) Status: Resolved History of essential hypertension (V12.59, Z86.79) Status: Resolved History of Graves disease (242.00, E05.00) Status: Resolved History of herpes labialis (V12.09, Z86.19) Status: Resolved History of hyperlipidemia (V12.29, Z86.39) Status: Resolved History of Migraine without status migrainosus, not intractable (346.90, G43.909) Status: Resolved History of Multiple and bilateral precerebral artery stenosis without infarction (433.30, I65.8) Status: Resolved History of thyroid disease (V12.29, Z86.39) Status: Resolved History of Type I diabetes mellitus without complication, uncontrolled (250.03, E10.65) Status: Resolved History of viral infection (V12.09, Z86.19) Status: Resolved Personal history of asthma (V12.69, Z87.09) Status: Resolved Procedures Procedure Dates Details History of Mastoidectomy, Complete Completed History of Total Abdominal Hysterectomy With Removal Of Both Ovaries Completed Immunization Name Dates Details Tdap (Adacel) Lot #: [id number] on: 25-Jul-2011 Fluzone INJ Lot #: [id number] on: 08-Aug-2013 Hep B (Recombinant) Lot #: [id number] on: 08-Aug-2013 Hep B (Recombivax) Lot #: [id number] on: 01-Feb-2014 Fluzone Quadrivalent 0.5 ML Intramuscular Suspension Lot #: [id number] on: 08-Aug-2014 Fluzone Quadrivalent Intramuscular Suspension Lot #: [id number] on: 03-Aug-2015 Fluzone Quadrivalent 0.5 ML Intramuscular Suspension Lot #: [id number] on: 01-Jul-2016 Pneumovax 23 25 MCG/0.5ML Injection Injectable Lot #: [id number] on: 01-Jul-2016 Fluzone Quadrivalent 0.5 ML Intramuscular Suspension Prefilled Syringe Lot #: [id number] on: 14-Jul-2017 Family History Name Dates Details Family history of Asthma (V17.5) Comments: Family History Status: Active Family history of Heart Disease (V17.49) Comments: Family History Status: Active Social History Name Dates Details - Status: Name Dates Details Unknown if ever smoked Never smoker Vital Signs Date Test Result Details No Known Vitals to report Results Date Description Value Details Results not documented Plan of Care Name Dates Details Planned Observations Planned Goals not documented Planned Encounters Appointment; JIMENA GILBERT M.D. On: 15-Jan-2018 10:45 Appointment; BEAR HURLEY M.D. On: 15-Feb-2018 11:20 Appointment; RAMILA FUNK M.D. On: 18-Feb-2018 10:00 Appointment; Agnes Brink M.D. On: 20-Apr-2018 10:00 Instructions Name Dates Details Instructions not documented Encounters Appointment; RAMILA FUNK M.D. Encounter Diagnosis: Problem not documented On: 14-Jan-2016 10:30 Appointment; Agnes Brink M.D. Encounter Diagnosis: Problem not documented On: 14-Jan-2016 13:30 Appointment; RAMILA FUNK M.D. Encounter Diagnosis: Problem not documented On: 16-Jan-2016 14:00 Appointment; BEAR HURLEY M.D. Encounter Diagnosis: Problem not documented On: 20-Mar-2016 11:00 Appointment; BEAR HURLEY M.D. Encounter Diagnosis: Problem not documented On: 10-Apr-2016 10:20 Appointment; RAMILA FUNK M.D. Encounter Diagnosis: Problem not documented On: 17-Apr-2016 11:00 Appointment; MIRTA WASHINGTON M.D. Encounter Diagnosis: Problem not documented On: 19-May-2016 13:45 Appointment; RAMILA FUNK M.D. Encounter Diagnosis: Problem not documented On: 22-May-2016 10:30 Appointment; [facility], RESIDENT Encounter Diagnosis: Problem not documented On: 12-Jun-2016 13:00 Appointment; RAMILA FUNK M.D. Encounter Diagnosis: Problem not documented On: 12-Jun-2016 15:30 Appointment; RAMILA FUNK M.D. Encounter Diagnosis: Problem not documented On: 13-Jun-2016 10:30 Appointment; Agnes Brink M.D. Encounter Diagnosis: Problem not documented On: 01-Jul-2016 11:00 Appointment; AMBULATORY, RESIDENT Encounter Diagnosis: Problem not documented On: 14-Aug-2016 13:00 Appointment; BEAR HURLEY M.D. Encounter Diagnosis: Problem not documented On: 26-Aug-2016 10:00 Appointment; Agnes Brink M.D. Encounter Diagnosis: Problem not documented On: 23-Sep-2016 10:45 Appointment; RAMILA FUNK M.D. Encounter Diagnosis: Problem not documented On: 15-Oct-2016 9:30 Appointment; MARVIN HEREDIA M.D. Encounter Diagnosis: Problem not documented On: 21-Oct-2016 9:00 Appointment; RAMILA FUNK M.D. Encounter Diagnosis: Problem not documented On: 22-Oct-2016 11:30 Appointment; MARVIN HEREDIA M.D. Encounter Diagnosis: Problem not documented On: 23-Oct-2016 13:00 Appointment; BEAR HURLEY M.D. Encounter Diagnosis: Problem not documented On: 10-Nov-2016 9:40 Appointment; BEAR HURLEY M.D. Encounter Diagnosis: Problem not documented On: 08-Dec-2016 10:00 Appointment; AMBULATORY, RESIDENT Encounter Diagnosis: Problem not documented On: 24-Dec-2016 8:00 Appointment; Agnes Brink M.D. Encounter Diagnosis: Problem not documented On: 30-Dec-2016 10:00 Appointment; BEAR HURLEY M.D. Encounter Diagnosis: Problem not documented On: 10-Mar-2017 11:00 Appointment; JABIER WINSTON M.D. Encounter Diagnosis: Problem not documented On: 27-Apr-2017 12:00 Appointment; RAMILA FUNK M.D. Encounter Diagnosis: Problem not documented On: 27-Apr-2017 15:00 Appointment; BEAR HURLEY M.D. Encounter Diagnosis: Problem not documented On: 07-May-2017 11:00 Appointment; Agnes Brink M.D. Encounter Diagnosis: Problem not documented On: 07-Jul-2017 10:00 Appointment; JIMENA GILBERT M.D. Encounter Diagnosis: Problem not documented On: 10-Jul-2017 13:45 Appointment; AMBULATORY, RESIDENT Encounter Diagnosis: Problem not documented On: 14-Jul-2017 8:00 Appointment; CARYN LOCO M.D. Encounter Diagnosis: Problem not documented On: 16-Jul-2017 9:45 Appointment; RAMILA FUNK M.D. Encounter Diagnosis: Problem not documented On: 30-Jul-2017 11:00 Appointment; BEAR HURLEY M.D. Encounter Diagnosis: Problem not documented On: 04-Aug-2017 10:00 Appointment; AMBULATORY, RESIDENT Encounter Diagnosis: Problem not documented On: 14-Aug-2017 9:00 Appointment; JIMENA GILBERT M.D. Encounter Diagnosis: Problem not documented On: 18-Aug-2017 12:00 Appointment; JIMENA GILBERT M.D. Encounter Diagnosis: Problem not documented On: 25-Aug-2017 13:30 Appointment; JIMENA GILBERT M.D. Encounter Diagnosis: Problem not documented On: 16-Oct-2017 8:30 Appointment; Agnes Brink M.D. Encounter Diagnosis: Problem not documented On: 20-Oct-2017 13:45 Appointment; BEAR HURLEY M.D. Encounter Diagnosis: Problem not documented On: 03-Nov-2017 10:00 Appointment; RAMILA FUNK M.D. Encounter Diagnosis: Problem not documented On: 12-Nov-2017 10:00 Appointment; MIRTA WASHINGTON M.D. Encounter Diagnosis: Problem not documented On: 04-Dec-2017 15:45 Appointment; MIRTA WASHINGTON M.D. Encounter Diagnosis: Problem not documented On: 11-Dec-2017 15:45
--- OUTSIDE RECORDS SUMMARY | 2019-03-22 01:56 | XMS REPORT | Summary of Care ---
Author Author [facility] [place] Organization [facility] [place] Address Unknown Phone Unavailable Encounter ROSE MARY Duque([facility]) [phone] Date(s): 12/09/16 - 12/09/16 [facility] [place] [address] [place] [phone] Discharge Disposition: Home or Self Care Attending [...] Hernia repair 2006 Tympanoplasty 2005 Appendectomy 1999 ELIEZRE - Manipulation of joint under anesthetic 1996 [...]
--- NOTE | 2019-03-22 03:14 | Diagnostic Imaging Report ---
Right hip 3 - views HISTORY: Pain status post fall. COMPARISON: None FINDINGS: No displaced fracture. Osseous alignment is within normal limits. The joint spaces are well-maintained. Multiple phleboliths projected on the right hemipelvis. Vascular calcifications. IMPRESSION: No acute radiographic abnormality. Signed by: Dr. India Law M.D. on 03/22/2019 3:11 AM
--- NOTE | 2019-03-22 03:18 | Diagnostic Imaging Report ---
History:Fall Comparison studies:None Technique: Axial images were obtained from the skull base to the vertex. Coronal and sagittal images reconstructed from the axial data. Intravenous contrast: None Dose modulation, iterative reconstruction, and/or weight based adjustment of the mA/kV was utilized to reduce the radiation dose to as low as reasonably achievable. Findings: Scalp/skull: No abnormalities. Extra-axial spaces: No masses. No fluid collections. Brain sulci: Mildly prominent. Ventricles: Mild compensatory dilatation. No hydrocephalus. Parenchyma: Scattered hypodensities in the supratentorial white matter are small vessel ischemic changes. Chronic right posterior putamen lacunar infarct. No masses, hemorrhage, acute or chronic cortical vascular insults. Sellar/suprasellar region: No abnormalities. Craniocervical junction: Patent foramen magnum. No Chiari one malformation. Incidental findings: Atherosclerotic calcifications in the carotid siphons and bilateral vertebral arteries . Impression: No acute abnormalities. Chronic findings: 1. Mild generalized volume loss. 2. Moderate supratentorial white matter small vessel ischemic changes. 3. Left posterior putamen chronic disease persists Signed by: DR Toño Hartley M.D. on 03/22/2019 3:14 AM
== END 2019-03-22 03:41 | disposition home or self-care (01) ==
LOC: ER 01:46
DX: S01.112A Laceration without foreign body of left eyelid and periocular area, initial encounter (principal); W01.0XXA Fall on same level from slipping, tripping and stumbling without subsequent striking against object, initial encounter; S70.01XA Contusion of right hip, initial encounter
CPT/HCPCS: 70450; 99283